=== PATIENT | male | born 1950 | race Caucasian/White ===

== ENCOUNTER 2019-11-08 13:55 | Emergency (ER) | payer MEDICARE, OTHER ==
--- NOTE | 2019-11-08 14:16 | ER ---
Nurse's Notes [facility] Name: Bryce Alegria Age: 69 yrs Sex: Male : 1950 Arrival Date: 11/08/2019 Time: 14:00 Bed 6 Private MD: Diagnosis: Bee allergy status Presentation: 11/07 14:07 Chief complaint: Patient states: Mowing grass and was stung multiple times by, reports ph bee stings to scalp,neck and bilateral ears, denies difficulty breathing. Coronavirus screen: Patient denies a cough. Patient denies shortness of breath or difficulty breathing. Patient denies measured and/or subjective temperature greater than 100.4F prior to today's visit. Patient denies travel on a cruise ship or to a country the [facility] currently lists as an affected area. Patient denies contact with known and/or suspected case of COVID-19. Ebola Screen: No symptoms or risks identified at this time. Onset: The symptoms/episode began/occurred acutely. Anaphylaxis evaluation, no signs or symptoms of anaphylaxis were noted. Initial Sepsis Screen: Does the patient meet any 2 criteria? No. Patient's initial sepsis screen is negative. Does the patient have a suspected source of infection? No. Patient's initial sepsis screen is negative. Risk Assessment: Do you want to hurt yourself or someone else? Patient reports no desire to harm self or others. Onset of symptoms was November 08, 2019. 14:07 Method Of Arrival: Ambulatory ph 14:07 Acuity: DOUGIE 4 ph Triage Assessment: 14:10 General: Appears in no apparent distress. comfortable, slender, well groomed, Behavior ph is calm, cooperative, appropriate for age. Neuro: Level of Consciousness is awake, alert, obeys commands, Oriented to person, place, time, situation. Respiratory: Airway is patent Respiratory effort is even, unlabored, Denies shortness of breath. 14:10 Pain: Complains of pain in scalp, L ear and back of neck. Derm: Skin is healthy with ph good turgor, Skin is pink, warm \T\ dry. Injury Description: Bite sustained to scalp, neck, and ears caused by a bee. Historical: - Allergies: 14:10 NKDA; ph - PMHx: 14:10 colon cancer; ph - PSHx: 14:10 complete colectomy, has illiostomy and a small amount of rectum left; ph - Immunization history:: Adult Immunizations unknown. - Social history:: Smoking status: Patient denies any tobacco usage or history of. Screenin:12 Abuse screen: Denies threats or abuse. Denies injuries from another. Nutritional ph screening: No deficits noted. Tuberculosis screening: No symptoms or risk factors identified. Fall Risk None identified. Assessment: 14:13 Reassessment: Patient appears in no apparent distress at this time. SEE TRIAGE NOTE. ph 14:45 Respiratory: Airway is patent Breath sounds are clear. ah Vital Signs: 14:07 BP 148 / 82; Pulse 68; Resp 18; Temp 97.8; Pulse Ox 99% on R/A; Weight 81.65 kg; Height ph 5 ft. 11 in. (180.34 cm); 14:46 BP 148 / 82; Pulse 61; Resp 18; Pulse Ox 100% ; ah 14:07 Body Mass Index 25.10 (81.65 kg, 180.34 cm) ph ED Course: 14:00 Patient arrived in ED. mr 14:02 Filomena Dennis, [facility] snw 14:03 Cristobal Jean MD is Attending Physician. snw 14:09 Triage completed. ph 14:10 Arm band placed on Patient placed in an exam room, on a stretcher. ph 14:12 Patient has correct armband on for positive identification. Bed in low position. Call ph light in reach. Side rails up X 1. Pulse ox on. NIBP on. Door closed. Noise minimized. 14:14 Starr Camejo, RN is Primary Nurse. 14:45 No provider procedures requiring assistance completed. Patient did not have IV access during this emergency room visit. Administered Medications: 14:20 Drug: Pepcid 20 mg Route: PO; ah 14:47 Follow up: Response: No adverse reaction 14:20 Drug: Benadryl 25 mg Route: PO; ah 14:47 Follow up: Response: No adverse reaction 14:20 Drug: Decadron 8 mg Route: PO; 14:46 Follow up: Response: No adverse reaction Outcome: 14:15 Discharge ordered by . snw 14:45 Discharged to home ambulatory. 14:45 Condition: good 14:45 Discharge instructions given to patient, Instructed on discharge instructions, Demonstrated understanding of instructions, follow-up care, medications, Prescriptions given X 2. 14:47 Patient left the ED. Signatures: Filomena Dennis, HUSSAIN-C COLLEGE ADMINISTRATOR-[place] Lexy pedroza Diane Monzon, RN RN Starr Camejo, RN RN
--- NOTE | 2019-11-08 14:16 | EDPHYS ---
Physician Documentation [facility] Name: Bryce Alegria Age: 69 yrs Sex: Male : 1950 Arrival Date: 11/08/2019 Time: 14:00 Bed 6 Private MD: ED Physician Cristobal Jean HPI: 11/07 14:25 This 69 yrs old Male presents to ER via Ambulatory with complaints of Bee snw Sting. 14:25 The patient was bitten on the scalp and left mastoid area, by a bee, pt was mowing with snw long sleeve shirt and jeans, at home, outdoors. Onset: The symptoms/episode began/occurred suddenly, just prior to arrival. Secondary to the bite the patient reports swelling. Associated signs and symptoms: Pertinent positives: erythema at site. Severity of symptoms: At their worst the symptoms were moderate. The patient has not experienced similar symptoms in the past. It is unknown whether or not the patient has recently seen a physician. no SOB, no nausea, no vomiting, no itching, no wheezing. Historical: - Allergies: 14:10 NKDA; ph - PMHx: 14:10 colon cancer; ph - PSHx: 14:10 complete colectomy, has illiostomy and a small amount of rectum left; ph - Immunization history:: Adult Immunizations unknown. - Social history:: Smoking status: Patient denies any tobacco usage or history of. ROS: 14:22 Constitutional: Negative for fever, chills, and weight loss, Eyes: Negative for injury, snw pain, redness, and discharge, ENT: Negative for injury, pain, and discharge, Neck: Negative for injury, pain, and swelling, Cardiovascular: Negative for chest pain, palpitations, and edema, Respiratory: Negative for shortness of breath, cough, wheezing, and pleuritic chest pain, Abdomen/GI: Negative for abdominal pain, nausea, vomiting, diarrhea, and constipation, Back: Negative for injury and pain, : Negative for injury, bleeding, discharge, and swelling, MS/Extremity: Negative for injury and deformity, Neuro: Negative for headache, weakness, numbness, tingling, and seizure, Psych: Negative for depression, anxiety, suicide ideation, homicidal ideation, and hallucinations. 14:22 Skin: Positive for multiple insect stings on head and neck. Exam: 14:20 Constitutional: This is a well developed, well nourished patient who is awake, alert, snw and in no acute distress. Eyes: Pupils equal round and reactive to light, extra-ocular motions intact. Lids and lashes normal. Conjunctiva and sclera are non-icteric and not injected. Cornea within normal limits. Periorbital areas with no swelling, redness, or edema. Neck: Trachea midline, no thyromegaly or masses palpated, and no cervical lymphadenopathy. Supple, full range of motion without nuchal rigidity, or vertebral point tenderness. No Meningismus. Chest/axilla: Normal chest wall appearance and motion. Nontender with no deformity. No lesions are appreciated. Cardiovascular: Regular rate and rhythm with a normal S1 and S2. No gallops, murmurs, or rubs. Normal PMI, no JVD. No pulse deficits. Respiratory: Lungs have equal breath sounds bilaterally, clear to auscultation and percussion. No rales, rhonchi or wheezes noted. No increased work of breathing, no retractions or nasal flaring. Abdomen/GI: Soft, non-tender, with normal bowel sounds. No distension or tympany. No guarding or rebound. No evidence of tenderness throughout. Colostomy Back: No spinal tenderness. No costovertebral tenderness. Full range of motion. MS/ Extremity: Pulses equal, no cyanosis. Neurovascular intact. Full, normal range of motion. Neuro: Awake and alert, GCS 15, oriented to person, place, time, and situation. Cranial nerves II-XII grossly intact. Motor strength 5/5 in all extremities. Sensory grossly intact. Cerebellar exam normal. Normal gait. Psych: Awake, alert, with orientation to person, place and time. Behavior, mood, and affect are within normal limits. 14:20 ENT: post auricular area on left with insect sting, probed to remove any retained stinger. 14:20 Neck: External neck: a few insect stings, probed to remove any retained stingers. 14:20 Skin: Appearance: normal except for affected area, injury, puncture(s), multiple insect stings throughout scalp, areas probed to remove any retained stingers. No edema. No dizziness, no LOC. Vital Signs: 14:07 BP 148 / 82; Pulse 68; Resp 18; Temp 97.8; Pulse Ox 99% on R/A; Weight 81.65 kg; Height ph 5 ft. 11 in. (180.34 cm); 14:46 BP 148 / 82; Pulse 61; Resp 18; Pulse Ox 100% ; ah 14:07 Body Mass Index 25.10 (81.65 kg, 180.34 cm) ph MDM: 14:03 Patient medically screened. snw 14:23 Data reviewed: vital signs, nurses notes. Data interpreted: Pulse oximetry: on room air snw is 99 %. Interpretation: normal. Counseling: I had a detailed discussion with the patient and/or guardian regarding: the historical points, exam findings, and any diagnostic results supporting the discharge/admit diagnosis, the presence of at least one elevated blood pressure reading (>120/80) during this emergency department visit, the need for outpatient follow up, to return to the emergency department if symptoms worsen or persist or if there are any questions or concerns that arise at home. Response to treatment: the patient's symptoms have mildly improved after treatment. Special discussion: I have referred the patient to see his PCP for further evaluation of high blood pressure. Based on the history and exam findings, there is no indication for further emergent testing or inpatient evaluation. I discussed with the patient/guardian the need to see the primary care provider for further evaluation of the symptoms. Administered Medications: 14:20 Drug: Pepcid 20 mg Route: PO; ah 14:47 Follow up: Response: No adverse reaction ah 14:20 Drug: Benadryl 25 mg Route: PO; 14:47 Follow up: Response: No adverse reaction 14:20 Drug: Decadron 8 mg Route: PO; 14:46 Follow up: Response: No adverse reaction Disposition: 15:40 Co-signature as Attending Physician, Cristobal Jean MD. rn Disposition: 11/08/19 14:15 Discharged to Home. Impression: Bee allergy status. - Condition is Stable. - Discharge Instructions: Allergies, Adult, Bee, Wasp, or Hornet Sting, Adult. - Prescriptions for Zyrtec 10 mg Oral Tablet - take 1 tablet by ORAL route once daily As needed; 20 tablet. Pepcid 20 mg Oral Tablet - take 1 tablet by ORAL route once daily; 20 tablet. - Medication Reconciliation Form, Thank You Letter, Antibiotic Education, Prescription Opioid Use form. - Follow up: Emergency Department; When: As needed; Reason: Trouble breathing, Worsening of condition. Follow up: Private Physician; When: 1 week; Reason: Recheck today's complaints, Continuance of care, Re-evaluation by your physician. - Notes: Stay Safe and thank your Daughter for us. Signatures: Filomena Dennis, CHIP FRIER-C CHIP FRIER-[place]nw Cristobal Jean MD MD rn Hall, Patricia, RN RN Starr Camejo RN RN Corrections: (The following items were deleted from the chart) 14:47 14:15 11/08/2019 14:15 Discharged to Home. Impression: Bee allergy status. Condition is ah Stable. Forms are Medication Reconciliation Form, Thank You Letter, Antibiotic Education, Prescription Opioid Use. Follow up: Emergency Department; When: As needed; Reason: Trouble breathing, Worsening of condition. Follow up: Private Physician; When: 1 week; Reason: Recheck today's complaints, Continuance of care, Re-evaluation by your physician. snw
[2019-11-08] MEDS ORDERED: FAMOTIDINE 20 MG TAB ONE (14:23)
[2019-11-08] MEDS ORDERED: DIPHENHYDRAMINE 25 MG TAB/CAP ONE (14:23)
[2019-11-08] MEDS ORDERED: dexAMETHasone 4 MG TAB ONE (14:23)
[2019-11-08 14:53] VITALS: BP 148/82; TEMP 97.8
[2019-11-08 14:54] VITALS: O2SAT 100
== END 2019-11-08 14:47 | disposition home or self-care (01) ==
LOC: ER 13:55
DX: T63.441A Toxic effect of venom of bees, accidental (unintentional), initial encounter (principal); Y93.89 Activity, other specified; Y92.007 Garden or yard of unspecified non-institutional (private) residence as the place of occurrence of the external cause; Z85.038 Personal history of other malignant neoplasm of large intestine
CPT/HCPCS: J8540

== ENCOUNTER 2022-07-19 06:18 | Observation (INO) | payer MEDICARE, OTHER ==
--- OUTSIDE RECORDS SUMMARY | 2022-07-19 06:22 | XMS REPORT | Continuity of Care Document ---
:1950 Author Organization [facility] t Address [address] [place] [address] Care Team Providers Name Role Phone [phone] Primary Care Physician Unavailable SYSTEM, PROVIDER NOT IN Attending Clinician Unavailable Regina Villar Attending Clinician REGINA VILLAR Attending Clinician Unavailable VISIT, NURSE UATS Attending Clinician Unavailable Problems Condition Condition Condition Status Onset Resolution Last Treating Co mments Source Name Details Category Date Date Treatment Clinician Date N20.0 - N20.0 - Diagnosis Active 2020-10-20 Memoria CALCULUS CALCULUS 2- 11:43:00 l OF KIDNEY OF KIDNEY 00:01: Herm gallito Active 00 09/01/2020 MH OPID [place] UNK UNK Diagnosis Active 2020-08-16 Mem oria Active 08-09 11:01:00 l 08/09/2020 00:00: Linus voss [facility] [address] [place] CYSTOSCOPY CYSTOSCOP Diagnosis Active 2020-08-18 Memoria URETEROSCO Y 08-09 08:56:00 l PY URETEROSCO 00:00: Linus n PY Active 00 08/09/2020 [facility] CYSTOSCOPY CYSTOSCOP Diagnosis Active 2019-072020-08-04 Memoria BLADDER Y BLADDER 2-04 05:29:00 l BIOPSY BIOPSY 00:00: [place] Active 00 06[facility]23/2020 [facility]OSS Diagnosis Active 2019-072020-06-20 Me moria HEMATURIA HEMATURIA 08-08 10:08:00 l Active 00:00: [place] 06/08/2020 00 [facility] [place] Blood in Blood in Problem Resolve 2020-11-23 Memoria urine urine d 00:55:15 l (finding) (finding) Herm gallito Resolved Problem 11/23/2020 [facility], Tiffany Cortes Kidney Kidney Problem Resolve 2020-11-23 Mem oria stone stone d 00:55:15 l (disorder) (disorder) He rmann Resolved Problem 11/23/2020 Medical Group,[facility] JOAN [place] Malignant Malignant Problem Resolve 2020-11-23 Memoria tumor of tumor of d 00:55:15 l colon colon [place] (disorder) (disorder) Resolved Problem 11/23/2020 Medical Group,[facility], Nallely T[place] Allergies, Adverse Reactions, Alerts This patient has no known allergies or adverse reactions. Social History Social Habit Start Date Stop Date Quantity Comments Source Social History 2020-08-18 2020-08-18 [facility] lilliamgallito 19:54:33 19:54:33 Medications Ordered Filled Start Stop Current Ordering Indication Dosage Frequency Signature Comments Components Source Medication Medication Date Date Medication? Clinician (SIG) Name Name potassium Yes 15 mEq = 1 Me moria citrate 15 5-03 tab, PO, l mEq oral 20:24: BID, # 60 Herm gallito tablet, 00 tab, 6 extended Refill(s), release [facility]acy: [id number], 180.34, cm, 11/20/20 14:41:00 CDT, Height, 79.545, kg, 11/20/20 14:41:00 CDT, Weight sildenafil Yes 100 mg = 1 M emoria 100 MG Oral 5-03 tab, PO, l Tablet 20:24: Daily, PRN Bette nn [Viagra] 00 for erectile dysfunctio n, Take 30 minutes prior to intercours e, # 10 tab, 3 Refill(s), Pharmacy: [facility] #[id number], 180.34, cm, 11/20/20 14:41:00 CDT, Height, 79.545, kg, 11/20/20 14:41:00 CDT, Weight Tamsulosin Yes 0.4 mg = 1 M emoria hydrochlori 5-03 cap, PO, l de 0.4 MG 20:24: Daily, # Herm gallito Oral 00 30 cap, 6 Capsule Refill(s), [Flomax] Pharmacy: [facility] #[id number], 180.34, cm, 11/20/20 14:41:00 CDT, Height, 79.545, kg, 11/20/20 14:41:00 CDT, Weight potassium 1-0 Yes 15 mEq = 1 Me moria citrate 15 4-14 tab, PO, l mEq oral 16:01: BID, # 60 Herm gallito tablet, 00 tab, 3 extended Refill(s), release Pharmacy: [id number], 180.34, cm, 10/30/20 10:01:00 CDT, Height, 79.545, kg, 10/30/20 10:01:00 CDT, Weight sildenafil 1-0 Yes 100 mg = 1 M emoria 100 MG Oral 4-14 tab, PO, l Tablet 16:01: Daily, PRN Bette nn [Viagra] 00 for erectile dysfunctio n, Take 30 minutes prior to intercours e, # 10 tab, 3 Refill(s), Pharmacy: [facility] #[id number], 180.34, cm, 10/30/20 10:01:00 CDT, Height, 79.545, kg, 10/30/20 10:01:00 CDT, Weight potassium 1-0 No 15 mEq = 1 Me moria citrate 15 4-12 tab, PO, l mEq oral 15:49: BID, # 60 Herm gallito tablet, 00 tab, 3 extended Refill(s), release Pharmacy: [facility] #[id number], 180.34, cm, 10/30/20 10:01:00 CDT, Height, 79.545, kg, 10/30/20 10:01:00 CDT, Weight sildenafil 1-0 No 100 mg = 1 M emoria 100 MG Oral 4-12 tab, PO, l Tablet 15:45: Daily, PRN Bette nn [Viagra] 00 for erectile dysfunctio n, Take 30 minutes prior to intercours e, # 10 tab, 3 Refill(s), Pharmacy: [facility] #[id number], 180.34, cm, 10/30/20 10:01:00 CDT, Height, 79.545, kg, 10/30/20 10:01:00 CDT, Weight Vitamin D3 Yes 0 Memoria 4-12 Refill(s) l 15:11: [place] Acetaminoph No Notes: Roman yves en 08-18 Infuse l 17:40: over 15 [place] minutes Do not exceed 4gm/day of acetaminop hen MEDICATION WASTE Product Size: 1000 mg Product Wasted: ___ mg Oxycodone No Notes: Memori a Hydrochlori 08-18 (Same as: l de 5 MG 17:40: Roxicodone Herm gallito Oral Tablet ) Fentanyl No Notes: Memoria 08-18 (Same as: l 17:40: Sublimaze) Preservati ve free. Hydromorpho No Notes: Roman yves ne 08-18 Same as: l 17:40: Dilaudid Flumazenil No Notes: Memor ia 08-18 (Same as: l 17:40: Romazicon) Naloxone No Notes: Memoria 08-18 Same as l 17:40: Narcan Ondansetron No Notes: Roman yves 08-18 (Same as: l 17:40: Zofran) MEDICATION WASTE Product Size: 4 mg Product Wasted: ___ mg 24 HR Yes 50 mg = 1 Memoria mirabegron 08-18 tab, PO, l 50 MG 17:10: Daily, For Linus n Extended 00 the first Release 5 days Tablet after [Myrbetriq] surgery take daily. After that, take daily as needed for urinary frequency and urgency, # 21 tab, 0 Refill(s), Pharmacy: [id number], 180.34, cm, 08/16/20 11:17:00 AGENCY SALES MANAGEMENT ASSISTANT, Height, 79.636, kg, 01... ondansetron No Route: IV, Memoria (ANES) 08-18 Drug form: l 17:06: INJ, ONCE, Stop date: 08/18/20 11:06:00 AGENCY SALES MANAGEMENT ASSISTANT dexamethaso No Route: IV, Memoria ne (ANES) 08-18 Drug form: l 17:06: INJ, ONCE, Stop date: 08/18/20 11:06:00 AGENCY SALES MANAGEMENT ASSISTANT fentaNYL No Route: IV, Mem oria (ANES) 08-18 Drug form: l 16:35: INJ, ONCE, Stop date: 08/18/20 10:35:00 AGENCY SALES MANAGEMENT ASSISTANT lidocaine No Route: IV, Me moria (ANES) 08-18 Drug form: l 16:35: INJ, ONCE, Stop date: 08/18/20 10:35:00 AGENCY SALES MANAGEMENT ASSISTANT propofol No Route: IV, Mem oria (ANES) 08-18 Drug form: l 16:35: INJ, ONCE, Stop date: 08/18/20 10:35:00 AGENCY SALES MANAGEMENT ASSISTANT Hyoscyamine No 0.125 mg = Memoria Sulfate 08-18 1 tab, SL, l 0.125 MG 15:57: Q4H, PRN Btete nn Sublingual 00 Bladder Tablet Spasm, # [Levsin] 30 tab, 1 Refill(s), Pharmacy: [facility] #[id number], 180.34, cm, 08/16/20 11:17:00 AGENCY SALES MANAGEMENT ASSISTANT, Height, 79.636, kg, 08/16/20 11:17:00 AGENCY SALES MANAGEMENT ASSISTANT, Weight Phenazopyri Yes 200 mg = 1 Memoria dine 08-18 tab, PO, l hydrochlori 15:57: TID, PRN He rmann de 200 MG 00 Dysuria, X Oral Tablet 4 day, # [Pyridium] 12 tab, 0 Refill(s), Pharmacy: [facility] #[id number], 180.34, cm, 08/16/20 11:17:00 AGENCY SALES MANAGEMENT ASSISTANT, Height, 79.636, kg, 08/16/20 11:17:00 AGENCY SALES MANAGEMENT ASSISTANT, Weight tramadol Yes 50 mg = 1 Roman yves hydrochlori 08-18 tab, PO, l de 50 MG 15:57: Q8H, PRN Bette nn Oral Tablet 00 Pain, X 5 day, # 15 tab, 0 Refill(s), Pharmacy: [facility] #[id number], 180.34, cm, 08/16/20 11:17:00 AGENCY SALES MANAGEMENT ASSISTANT, Height, 79.636, kg, 08/16/20 11:17:00 AGENCY SALES MANAGEMENT ASSISTANT, Weight Tamsulosin Yes 0.4 mg = 1 M emoria hydrochlori 29 cap, PO, l de 0.4 MG 15:57: Daily, # Herm gallito Oral 00 10 cap, 0 Capsule Refill(s), [Flomax] Pharmacy: [facility] #[id number], 180.34, cm, 08/16/20 11:17:00 AGENCY SALES MANAGEMENT ASSISTANT, Height, 79.636, kg, 08/16/20 11:17:00 AGENCY SALES MANAGEMENT ASSISTANT, Weight Lactated No Route: IV, Mem oria Ringers 08-18 Total l Injection 15:50: Volume: Bette nn IV (ANES) 00 1,000, 1000 mL Start date: 08/18/20 9:50:00 AGENCY SALES MANAGEMENT ASSISTANT, Stop date: 08/18/20 10:50:00 AGENCY SALES MANAGEMENT ASSISTANT ciprofloxac No Route: IV, Memoria in (ANES) 2 08-18 Drug form: l mg 15:45: INJ, Start date: 08/18/20 9:45:00 AGENCY SALES MANAGEMENT ASSISTANT, Stop date: 08/18/20 10:45:00 AGENCY SALES MANAGEMENT ASSISTANT Calcium No 1,000 mL, Memor ia Chloride 08-18 Rate: 75 l 0.0014 15:18: ml/hr, MEQ/ML / 00 Infuse Potassium over: 13.3 Chloride hr, Route: 0.004 IV, Dosing MEQ/ML / Weight Sodium 79.636 kg, Chloride Total 0.103 Volume: MEQ/ML / 1,000, Sodium Start Lactate date: 0.028 08/18/20 MEQ/ML 9:18:00 Injectable [employer] SALES MANAGEMENT ASSISTANT, Solution Duration: 30 day, Stop date: 09/17/20 9:17:00 AGENCY SALES MANAGEMENT ASSISTANT, 2.01, m2, 0 glycopyrron No 0.4 mg, Mem oria ium 08-04 Route: l 15:20: IVP, ONCE, Dosing Weight 78.75, kg, Start date: 08/04/20 9:20:00 AGENCY SALES MANAGEMENT ASSISTANT, Stop date: 08/04/20 9:20:00 AGENCY SALES MANAGEMENT ASSISTANT Levsin SL No Notes: Memori a 1-15 (Same as: l 15:15: Levsin) Take 30 min before meal glycopyrrol No Route: IV, Memoria ate (ANES) 15 Drug form: l 14:45: INJ, ONCE, Stop date: 08/04/20 8:45:00 AGENCY SALES MANAGEMENT ASSISTANT neostigmine No Route: IV, Memoria (ANES) 15 Drug form: l 14:45: INJ, ONCE, Stop date: 08/04/20 8:45:00 AGENCY SALES MANAGEMENT ASSISTANT Tamsulosin Yes 0.4 mg = 1 M emoria hydrochlori 1-15 cap, PO, l de 0.4 MG 14:43: Daily, # Herm gallito Oral 00 30 cap, 0 Capsule Refill(s), [Flomax] Pharmacy: [facility] #[id number], 180.34, cm, 08/02/20 11:09:00 AGENCY SALES MANAGEMENT ASSISTANT, Height, 80.455, kg, 08/02/20 11:09:00 AGENCY SALES MANAGEMENT ASSISTANT, Weight Phenazopyri No 200 mg = 1 Memoria dine 1-15 tab, PO, l hydrochlori 14:43: TID, PRN He rmann de 200 MG 00 Dysuria, X Oral Tablet 2 day, # 6 [Pyridium] tab, 0 Refill(s), Pharmacy: [facility] #[id number], 180.34, cm, 08/02/20 11:09:00 AGENCY SALES MANAGEMENT ASSISTANT, Height, 80.455, kg, 08/02/20 11:09:00 AGENCY SALES MANAGEMENT ASSISTANT, Weight Hyoscyamine Yes 0.125 mg = Memoria Sulfate 1-15 1 tab, SL, l 0.125 MG 14:43: Q6H, PRN Bette nn Sublingual 00 Bladder Tablet Spasm, # [Levsin] 20 tab, 0 Refill(s), Pharmacy: [facility] #[id number], 180.34, cm, 08/02/20 11:09:00 AGENCY SALES MANAGEMENT ASSISTANT, Height, 80.455, kg, 08/02/20 11:09:00 AGENCY SALES MANAGEMENT ASSISTANT, Weight ciprofloxac No Route: IV, Memoria in (ANES) 08-04 Drug form: l 14:37: INJ, ONCE, Stop date: 08/04/20 8:37:00 AGENCY SALES MANAGEMENT ASSISTANT midazolam No Route: IV, Me moria (ANES) 1-15 Drug form: l 14:32: SOLN, [place] 00 ONCE, Stop date: 08/04/20 8:32:00 AGENCY SALES MANAGEMENT ASSISTANT lidocaine No Route: IV, Me moria (ANES) 1 Drug form: l 14:32: INJ, ONCE, Stop date: 08/04/20 8:32:00 AGENCY SALES MANAGEMENT ASSISTANT fentaNYL No Route: IV, Mem oria (ANES) 1 Drug form: l 14:32: INJ, ONCE, Stop date: 08/04/20 8:32:00 AGENCY SALES MANAGEMENT ASSISTANT propofol No Route: IV, Mem oria (ANES) 115 Drug form: l 14:32: INJ, ONCE, Stop date: 08/04/20 8:32:00 AGENCY SALES MANAGEMENT ASSISTANT rocuronium No Route: IV, M emoria (ANES) 08-04 Drug form: l 14:32: INJ, ONCE, Stop date: 08/04/20 8:32:00 AGENCY SALES MANAGEMENT ASSISTANT ondansetron No Route: IV, Memoria (ANES) 115 Drug form: l 14:32: INJ, ONCE, Stop date: 08/04/20 8:32:00 AGENCY SALES MANAGEMENT ASSISTANT Lactated No Route: IV, Mem oria Ringers -15 Total l Injection 13:41: Volume: Bette nn IV (ANES) 00 1,000, 1000 mL Start date: 08/04/20 7:41:00 AGENCY SALES MANAGEMENT ASSISTANT, Stop date: 08/04/20 8:41:00 AGENCY SALES MANAGEMENT ASSISTANT Lactated 0 No 1,000 mL, Roman yves Ringers IV 15 Rate: 40 l 1,000 mL 12:11: ml/hr, [place] 00 Infuse over: 25 hr, Route: IV, Dosing Weight 80.455 kg, Total Volume: 1,000, Start date: 08/04/20 6:11:00 AGENCY SALES MANAGEMENT ASSISTANT, Duration: 30 day, Stop date: 09/03/20 6:10:00 AGENCY SALES MANAGEMENT ASSISTANT, 2.02, m2, 0 Vitamin D3 Yes = 1 tab, Mem oria 1-15 PO, Daily, l 12:10: 0 [place] 00 Refill(s) Vital Signs Vital Name Observation Time Observation Value Comments Source Height 2020-11-20 19:41:00 180.34 cm [facility] [place] Weight 2020-11-20 19:41:00 [facility] [place] BMI Calculated 2020-11-20 19:41:00 Memori al [place] Height 2020-10-30 15:01:00 180.34 cm [facility] [place] Weight 2020-10-30 15:01:00 [facility] [place] BMI Calculated 2020-10-30 15:01:00 Memori al [place] Height 2020-09-01 19:38:00 180.34 cm [facility] [place] Weight 2020-09-01 19:38:00 [facility] [place] BMI Calculated 2020-09-01 19:38:00 Memori al [place] Respitory Rate 2020-08-18 18:30:00 Memori al [place] Systolic (mm Hg) 2020-08-18 18:30:00 Roman rial [place] Diastolic (mm Hg) 2020-08-18 18:30:00 Mem orial [place] Diastolic (mm Hg) 2020-08-18 18:00:00 Mem orial [place] Respitory Rate 2020-08-18 18:00:00 Memori al [place] Systolic (mm Hg) 2020-08-18 18:00:00 Roman rial [place] Respitory Rate 2020-08-18 17:45:00 Memori al [place] Systolic (mm Hg) 2020-08-18 17:45:00 Roman rial [place] Diastolic (mm Hg) 2020-08-18 17:45:00 Mem orial [place] Height 2020-08-16 17:17:00 180.34 cm [facility] [place] Weight 2020-08-16 17:17:00 [facility] [place] BMI Calculated 2020-08-16 17:17:00 Memori al [place] Height 2020-08-11 16:16:00 180.34 cm [facility] [place] Weight 2020-08-11 16:16:00 [facility] [place] BMI Calculated 2020-08-11 16:16:00 Memori al [place] Systolic (mm Hg) 2020-08-04 16:15:00 Roman rial [place] Diastolic (mm Hg) 2020-08-04 16:15:00 Mem orial [place] Respitory Rate 2020-08-04 16:15:00 Memori al [place] Respitory Rate 2020-08-04 15:45:00 Memori al [place] Systolic (mm Hg) 2020-08-04 15:45:00 Roman rial [place] Diastolic (mm Hg) 2020-08-04 15:45:00 Mem orial [place] Respitory Rate 2020-08-04 15:30:00 Memori al [place] Systolic (mm Hg) 2020-08-04 15:30:00 Roman rial [place] Diastolic (mm Hg) 2020-08-04 15:30:00 Mem orial [place] Weight 2020-08-04 15:18:00 [facility] [place] BMI Calculated 2020-08-04 15:18:00 Memori al [place] Height 2020-08-02 17:09:00 180.34 cm [facility] [place] Height 2020-07-28 19:30:00 180.34 cm [facility] [place] Weight 2020-07-28 19:30:00 [facility] [place] BMI Calculated 2020-07-28 19:30:00 Memori al [place] Height 2020-06-23 20:32:00 180.34 cm [facility] [place] Weight 2020-06-23 20:32:00 [facility] [place] BMI Calculated 2020-06-23 20:32:00 Memori al [place] Height 2020-06-07 15:25:00 180.34 cm [facility] [place] Weight 2020-06-07 15:25:00 [facility] [place] BMI Calculated 2020-06-07 15:25:00 Memori al [place] Procedures Procedure Date / Time Performed Performing Clinician Sourc e Colectomy [facility] [place] Colostomy [facility] [place] Tonsillectomy [facility] [place] Cystoscopy [facility] [place] Encounters Start End Encounter Admission Attending Care Care Encounter Source Date/Time Date/Time Type Type Clinicians Facility Department ID 2020-01-21 Outpatient SYSTEM, [facility] [id number] 09:54:19 PROVIDER Escobar o n 2020-11-20 2020-11-21 Outpatient nullFlavo [facility] Multi [id number] Memoria 19:45:00 04:59:59 r Specialty 09 l [facility] Matthew conti [place] 2020-11-20 2020-11-20 Outpatient Elisa [facility] [id number] 14:45:00 23:59:59 Regina L 09 2020-11-20 2020-11-20 Outpatient MHIE IE [id number] Memoria 14:45:00 14:45:00 09 herman Reis 2020-10-30 2020-10-31 Outpatient nullFlavo [facility] Multi 55 [id number] Memoria 14:40:00 04:59:59 r Specialty 08 l [facility] Matthew conti [place] 2020-10-30 2020-10-30 Outpatient Elisa [facility] [id number] 09:40:00 23:59:59 Regina L 08 2020-10-30 2020-10-30 Outpatient [facility] STEVEN [id number] Memoria 09:40:00 09:40:00 08 herman Reis 2020-10-20 2020-10-21 Outpt Diag nullFlavo [facility] [id number] Memoria 16:33:00 04:59:00 Services r Outpatient 00 l [facility] 2020-10-20 2020-10-20 [facility] [id number] 11:33:00 23:59:00 Regina L 00 2020-09-01 2020-09-02 Outpatient nullFlavo [facility] [id number] Memoria 20:00:00 05:59:59 r Urology 07 l [facility] nn Time Share 2020-09-01 2020-09-02 Outpatient nullFlavo [facility] [id number] Memoria 20:00:00 05:59:59 r Urology 06 l [facility] Bette nn Time Share 2020-09-01 2020-09-01 Outpatient Elisa [facility] [id number] 14:00:00 23:59:59 Regina L 07 2020-09-01 2020-09-01 Outpatient Elisa, [facility] [id number] 14:00:00 23:59:59 Regina L 06 2020-09-01 2020-09-01 Outpatient MHIE MHIE [id number] Memoria 14:00:00 14:00:00 07 herman [place] 2020-09-01 2020-09-01 Outpatient MHIE MHIE [id number] Memoria 14:00:00 14:00:00 06 [facility] 2020-08-18 2020-08-18 Day nullFlavo [facility] [id number] Memoria 14:50:00 18:50:00 Surgery r [place] 02 [facility] 2020-08-18 2020-08-18 Outpatient Staller, MHPL MHPL [id number] 08:50:00 12:50:00 Regina L 2020-08-18 2020-08-18 Outpatient Staller, MHPL MHPL [id number] 08:50:00 12:50:00 Regina L 2020-08-18 2020-08-18 Outpatient STALLER, MHBL BOBBY [id number] MHBL 08:50:00 12:50:00 REGINA 2020-08-11 2020-08-11 Outpatient MHIE MHIE [id number] Memoria 11:00:00 11:00:00 05 [facility] 2020-08-04 2020-08-04 Day nullFlavo [facility] [id number] Memoria 11:23:00 16:20:00 Surgery r [place] [facility] 2020-08-04 2020-08-04 Outpatient Staller, MHPL MHPL [id number] 05:23:00 10:20:00 Regina L 2020-08-04 2020-08-04 Outpatient STALLER, MHBL BOBBY [id number] MHBL 05:23:00 10:20:00 REGINA 2020-07-26 2020-07-26 Ambulatory nullFlavo [facility] 55 [id number] Memoria 15:20:00 15:20:00 Pre-Reg r Specialty 03 l [facility] 2020-07-26 2020-07-26 Outpatient MHIE MHIE [id number] Memoria 09:20:00 09:20:00 03 [facility] 2020-07-26 2020-07-26 Outpatient Staller, [facility]MG [facility] [id number] 09:20:00 09:20:00 Regina L 03 2020-07-19 2020-07-20 Outpatient nullFlavo [facility] 55 [id number] Memoria 15:20:00 05:59:59 r Specialty 04 l [facility] 2020-07-19 2020-07-19 Outpatient Staller, MHMG MG [id number] 09:20:00 23:59:59 Regina L 04 2020-07-19 2020-07-19 Outpatient MHIE MHIE [id number] Memoria 09:20:00 09:20:00 04 [facility] 2020-06-23 2020-06-24 [place] [id number] Memoria 22:10:00 05:59:59 r Urology 01 l Cari Amos nn Time Share 2020-06-23 2020-06-24 [place] [id number] Memoria 22:00:00 05:59:59 r Urology 02 l Cari Castroa nn Time Share 2020-06-23 2020-06-23 Outpatient Staller, MG MG [id number] 16:10:00 23:59:59 Regina L 2020-06-23 2020-06-23 Outpatient VISIT, MH[facility] MG [id number] 16:00:00 23:59:59 NURSE UATS 2020-06-23 2020-06-23 Outpatient MHIE MHIE [id number] Memoria 16:10:00 16:10:00 01 [facility] 2020-06-23 2020-06-23 Outpatient MHIE MHIE [id number] Memoria 16:00:00 16:00:00 02 [facility] 2020-06-20 2020-06-21 Outpatient nullFlavo [facility] [id number] Memoria 16:02:00 05:59:00 r [place] 00 [facility] 2020-06-20 2020-06-20 Outpatient Staller, MHPL MHPL [id number] 10:02:00 23:59:00 Regina L 00 2020-06-20 2020-06-20 Outpatient STALLER, [facility] BOBBY [id number] MHBL 10:02:00 23:59:00 REGINA 2020-06-07 2020-06-08 Outpatient nullFlavo [facility] 55 [id number] Memoria 15:20:00 05:59:59 r Specialty 00 l [facility] 2020-06-07 2020-06-07 Outpatient Elisa [facility] [id number] 09:20:00 23:59:59 Regina L 00 2020-06-07 2020-06-07 Outpatient [facility] [id number] Memoria 09:20:00 09:20:00 00 l [place] Results Test Description Test Time Test Comments Results Result Comments Source IMMUNOLOGY 2020-08-16 17:17:00 Test Item Value Reference Range Interpretation Comme nts Coronavirus (COVID-19) AIDAN (test code = Not Detected *NA*(08/16/20 1 1:17 AM) Coronavirus (COVID-19) AIDAN) [id number] 17:07:00 Test Item Value Reference Range Interpretation Comments Coronavirus (COVID-19) Not Detected AIDAN (test code = *NA*(08/02/20 11:07 Coronavirus (COVID-19) AM) AIDAN) [facility] [id number] 16:04:00 Test Item Value Reference Range Interpretation Comments Creatinine Lvl (test code = Creatinine 1.40 0.50-1.40 Lvl) [facility] [id number] 16:04:00 Test Item Value Reference Range Interpretation Comments eGFR (test code = eGFR) 51 [facility] LAB [id number] 19:09:00 Test Item Value Reference Range Interpretation Comments Result 2 (Urine Culture) See Result Comment (test code = Result 2 (Urine Culture)) [facility]
[2022-07-19] MEDS ORDERED: ADENOSINE 6 MG/ 2ML VIAL IV ONE (06:41)
[2022-07-19 06:57] LABS: Absolute Lymphocytes (CBC) 1.3 K/uL (0.7-4.9); Hematocrit 49.4 % (39.6-49.0); MCV 92.6 fL (80-100); MPV 9.6 fL (7.6-11.3); RBC Red Blood Cell Count 5.34 M/uL (4.33-5.43)
[2022-07-19 07:09] LABS: Protime INR 1.05
[2022-07-19 07:23] LABS: Albumin 4.1 g/dL (3.4-5.0); Bilirubin Direct 0.2 mg/dL (0-0.2); Bilirubin Total 1.2 mg/dL (0.2-1.0); Protein, Total 7.7 g/dL (6.4-8.2)
[2022-07-19 07:29] LABS: Magnesium 2.1 mg/dL (1.6-2.4); Potassium 4.3 mmol/L (3.5-5.1)
[2022-07-19 07:31] LABS: Troponin High Sensitivity 267.9 pg/mL (<58.9)
[2022-07-19 07:34] LABS: Blood Morphology Comment NOT SEEN (NOT SEEN); Platelet Estimate ADEQ
--- NOTE | 2022-07-19 07:52 | RAD REPORT ---
EXAM DESCRIPTION: RAD - Chest Single View - 07/19/2022 6:50 am CLINICAL HISTORY: PALPITATIONS COMPARISON: Portable 09/05/2017 TECHNIQUE: AP portable chest image was obtained 07/19/2022 6:50 am . FINDINGS: No focal lung parenchymal process. Interstitial pattern is not outside of normal range. No measurable interstitial edema or infiltrate. Monitors or resuscitation paddles overlie the lower lef t chest. Heart and vasculature are normal. No measurable pleural effusion and no pneumothorax. No acu te bony abnormality seen. No acute aortic findings suspected. IMPRESSION: No acute cardiopulmonary process.
--- NOTE | 2022-07-19 08:01 | ER ---
Nurse's Notes [facility] Name: Bryce Alegria Age: 72 yrs Sex: Male : 1950 Arrival Date: 07/19/2022 Time: 06:25 Bed 7 Private MD: Salinas Jade E Diagnosis: Supraventricular tachycardia Presentation: 07/19 06:32 Chief complaint: Patient states: "My heart started feeling like it was fluttering, I tw5 got short of breath and a little dizzy. This has happened a couple of other times over the past several years, but the sensations usually goes away. This time it didn't go away.". Coronavirus screen: Vaccine status: Patient reports receiving the 2nd dose of the covid vaccine. [employer]. Ebola Screen: Patient negative for fever greater than or equal to 101.5 degrees Fahrenheit, and additional compatible Ebola Virus Disease symptoms Patient denies exposure to infectious person. Patient denies travel to an Ebola-affected area in the 21 days before illness onset. Risk Assessment: Do you want to hurt yourself or someone else? Patient reports no desire to harm self or others. Onset of symptoms was July 18, 2022 at 23:30. 06:32 Acuity: DOUGIE 2 tw5 06:32 Method Of Arrival: Wheelchair tw5 06:46 Initial Sepsis Screen: Does the patient meet any 2 criteria? HR > 90 bpm. Does the tw5 patient have a suspected source of infection? No. Patient's initial sepsis screen is negative. Triage Assessment: 06:46 General: Appears in no apparent distress. uncomfortable, Behavior is calm, cooperative. tw5 Pain: Denies pain. Historical: - Allergies: 06:36 NKDA; tw5 - PMHx: 06:36 colon cancer; tw5 - Immunization history:: Flu vaccine is up to date. - Social history:: Smoking status: Patient denies any tobacco usage or history of. Screenin:46 [facility] ED Fall Risk Assessment (Adult) History of falling in the last 3 months, tw5 including since admission No falls in past 3 months (0 pts). Abuse screen: Denies threats or abuse. Denies injuries from another. Nutritional screening: No deficits noted. Tuberculosis screening: No symptoms or risk factors identified. Assessment: 06:45 Reassessment: Patient states feeling better. Patient states symptoms have improved. tw5 Neuro: Level of Consciousness is awake, alert, obeys commands, Oriented to person, place, time, situation. 07:15 Reassessment: Patient appears in no apparent distress at this time. Patient and/or db family updated on plan of care and expected duration. Pain level reassessed. Patient is alert, oriented x 3, equal unlabored respirations, skin warm/dry/pink. Patient states feeling better. Patient states symptoms have improved. General: Appears in no apparent distress. comfortable, Behavior is calm, cooperative, appropriate for age, quiet. Pain: Denies pain. Neuro: No deficits noted. Level of Consciousness is awake, alert, obeys commands, Oriented to person, place, time, situation, Appropriate for age. Cardiovascular: Denies chest pain, Capillary refill < 3 seconds Rhythm is sinus rhythm. Respiratory: Airway is patent Respiratory effort is even, unlabored, Respiratory pattern is regular, symmetrical. Respiratory: Reports shortness of breath at rest last night. feels better now. GI: No deficits noted. No signs and/or symptoms were reported involving the gastrointestinal system. Abdomen is flat. : No deficits noted. No signs and/or symptoms were reported regarding the genitourinary system. 07:15 Reassessment: Patient appears in no apparent distress at this time. Patient and/or db family updated on plan of care and expected duration. Pain level reassessed. Patient is alert, oriented x 3, equal unlabored respirations, skin warm/dry/pink. Vital Signs: 06:32 Temp 97.7; Weight 81.65 kg; Height 5 ft. 11 in. (180.34 cm); Pain 0/10; tw5 06:41 BP 82 / 68; Pulse 176; Resp 25; Pulse Ox 94% on R/A; tw5 06:45 BP 91 / 66; Pulse 88; Resp 20; Pulse Ox 100% on R/A; tw5 07:15 BP 99 / 69; Pulse 72; Resp 18; Pulse Ox 100% on R/A; db 08:15 BP 102 / 73; Pulse 67; Resp 18; Pulse Ox 100% on R/A; db 06:32 Body Mass Index 25.10 (81.65 kg, 180.34 cm) tw5 ED Course: 06:25 Patient arrived in ED. es 06:25 Salinas Jade MD is Private Physician. es 06:35 Triage completed. tw5 06:42 Inserted saline lock: 18 gauge in right antecubital area, using aseptic technique. tw5 Blood collected. 06:45 Basic Metabolic Panel Sent. tw5 06:45 CBC with Diff Sent. tw5 06:45 LFT's Sent. tw5 06:45 Magnesium Sent. tw5 06:45 NT PRO-BNP Sent. tw5 06:45 PT-INR Sent. tw5 06:45 Troponin HS Sent. tw5 06:46 Arm band placed on Patient placed in an exam room. tw5 06:47 Amina Levine MD is Attending Physician. sp3 06:52 XRAY Chest (1 view) In Process Unspecified. EDMS 06:58 EKG done, by ED staff, reviewed by Amina Levine MD. tw5 06:58 Patient has correct armband on for positive identification. Placed in gown. Bed in low tw5 position. Call light in reach. Side rails up X2. Client placed on continuous cardiac and pulse oximetry monitoring. NIBP monitoring applied. Door closed. Noise minimized. Moved to private room. Warm blanket given. Verbal reassurance given. 06:59 Eliseo Oliver, RN is Primary Nurse. as6 07:37 Attending Physician role handed off by Amina Levine MD rn 07:37 Cristobal Jean MD is Attending Physician. rn 08:00 Alea Mendes MD is Hospitalizing Provider. rn 09:16 SARS RAPID Sent. bc6 09:16 COVID swab sent to lab. bc6 12:46 No provider procedures requiring assistance completed. Patient transferred, IV remains db in place. Administered Medications: 06:43 Drug: Adenosine 12 mg Route: IVP; Site: right antecubital; tw5 06:48 Follow up: Response: No adverse reaction; Cardiac rhythm changed tw5 08:43 Drug: Aspirin Chewable Tablet 324 mg Route: PO; db 09:40 Follow up: Response: No adverse reaction db Medication: 06:48 VIS not applicable for this client. tw5 Outcome: 08:01 Decision to Hospitalize by Provider. rn 12:57 Admitted to Tele on monitor, Report called to Almita db 12:57 Condition: stable 12:57 Instructed on the need for admit. 13:21 Patient left the ED. eb Signatures: Dispatcher [employer] Shauna Owens Roman, MD MD rn Melinda, Amina Salvador MD MD sp3 Darlene Toussaint 5 Eliseo Oliver RN RN as6 Daly Funes RN RN db Layla Dockery 6
--- NOTE | 2022-07-19 08:01 | EDPHYS ---
Physician Documentation [facility] Name: Bryce Alegria Age: 72 yrs Sex: Male : 1950 Arrival Date: 07/19/2022 Time: 06:25 Bed 7 Private MD: aSlinas Jade E ED Physician Cristobal Jean HPI: 07/19 06:47 This 72 yrs old Unknown Male presents to ER via Wheelchair with complaints of sp3 Palpitations. 06:47 72-year-old male with a history of colon cancer not currently on any chemotherapy, sp3 radiation or any medication at all presents to the ED for chief complaint palpitations since approximate 11:30 PM yesterday that started insidiously without any activity. He denies any chest pain, shortness of breath, back pain, headache, neck pain, jaw pain, left arm pain, any extremity pain at all, abdominal pain, nausea, vomiting, diarrhea, rash, syncope, near syncope or any other symptoms other than the palpitations. Remainder of ROS negative. Surgical history is significant for total colectomy.. Historical: - Allergies: 06:36 NKDA; tw5 - PMHx: 06:36 colon cancer; tw5 - Immunization history:: Flu vaccine is up to date. - Social history:: Smoking status: Patient denies any tobacco usage or history of. ROS: 06:48 Constitutional: Negative for fever, chills, and weight loss, Eyes: Negative for injury, sp3 pain, redness, and discharge, ENT: Negative for injury, pain, and discharge, Neck: Negative for injury, pain, and swelling, Respiratory: Negative for shortness of breath, cough, wheezing, and pleuritic chest pain, Abdomen/GI: Negative for abdominal pain, nausea, vomiting, diarrhea, and constipation, Back: Negative for injury and pain, MS/Extremity: Negative for injury and deformity, Skin: Negative for injury, rash, and discoloration, Neuro: Negative for headache, weakness, numbness, tingling, and seizure, Psych: Negative for depression, anxiety, suicide ideation, homicidal ideation, and hallucinations, Allergy/Immunology: Negative for hives, rash, and allergies. 06:48 All other systems are negative. Exam: 06:48 Constitutional: This is a well developed, well nourished patient who is awake, alert, sp3 and in no acute distress. Head/Face: Normocephalic, atraumatic. Eyes: Pupils equal round and reactive to light, extra-ocular motions intact. Lids and lashes normal. Conjunctiva and sclera are non-icteric and not injected. Cornea within normal limits. Periorbital areas with no swelling, redness, or edema. Neck: Trachea midline, no thyromegaly or masses palpated, and no cervical lymphadenopathy. Supple, full range of motion without nuchal rigidity, or vertebral point tenderness. No Meningismus. Chest/axilla: Normal chest wall appearance and motion. Nontender with no deformity. No lesions are appreciated. Respiratory: Lungs have equal breath sounds bilaterally, clear to auscultation and percussion. No rales, rhonchi or wheezes noted. No increased work of breathing, no retractions or nasal flaring. Abdomen/GI: Soft, non-tender, with normal bowel sounds. No distension or tympany. No guarding or rebound. No evidence of tenderness throughout. Back: No spinal tenderness. No costovertebral tenderness. Full range of motion. Skin: Warm, dry with normal turgor. Normal color with no rashes, no lesions, and no evidence of cellulitis. MS/ Extremity: Pulses equal, no cyanosis. Neurovascular intact. Full, normal range of motion. Neuro: Awake and alert, GCS 15, oriented to person, place, time, and situation. Cranial nerves II-XII grossly intact. Motor strength 5/5 in all extremities. Sensory grossly intact. Cerebellar exam normal. Normal gait. 06:48 ECG was reviewed by the Attending Physician. Initial EKG demonstrates supraventricular tachycardia at 172 bpm and regular fashion. Showed during adenosine administration demonstrates sinus pause followed by normal sinus rhythm with PVCs. Repeat EKG is pending. 06:51 Repeat EKG after adenosine demonstrates normal sinus rhythm at 80 bpm with normal sp3 intervals, normal QRS, normal axis, and nonspecific diffuse ST/T changes without evidence of acute ischemia. Vital Signs: 06:32 Temp 97.7; Weight 81.65 kg; Height 5 ft. 11 in. (180.34 cm); Pain 0/10; tw5 06:41 BP 82 / 68; Pulse 176; Resp 25; Pulse Ox 94% on R/A; tw5 06:45 BP 91 / 66; Pulse 88; Resp 20; Pulse Ox 100% on R/A; tw5 07:15 BP 99 / 69; Pulse 72; Resp 18; Pulse Ox 100% on R/A; db 08:15 BP 102 / 73; Pulse 67; Resp 18; Pulse Ox 100% on R/A; db 06:32 Body Mass Index 25.10 (81.65 kg, 180.34 cm) tw5 MDM: 06:49 Data reviewed: vital signs, nurses notes. ED course: 72-year-old male presents with sp3 palpitations and supraventricular tachycardia. Upon arrival, patient was placed in a room and on a director of cardiac rehabilitation and subsequently 12 mg of adenosine IV push were given which resulted in a appropriate sinus pause and commencement of normal sinus rhythm. Repeat EKG is pending. All laboratory values including chest x-ray are also pending. Patient will be signed out to the day physician for review of work-up and final disposition.. 06:50 Patient medically screened. sp3 07:59 Counseling: I had a detailed discussion with the patient and/or guardian regarding: the rn historical points, exam findings, and any diagnostic results supporting the discharge/admit diagnosis, lab results, radiology results, the need for further work-up and treatment in the hospital. Response to treatment: the patient's symptoms have markedly improved after treatment, and as a result, I will admit patient. ED course: Pt with new SVT, converted to sinus rhythm after adenosine, elevated troponin, will admit to hospitalist service.. 07/19 06:36 Order name: Basic Metabolic Panel; Complete Time: 07:59 sp3 07/19 06:36 Order name: CBC with Diff; Complete Time: 07:59 sp3 07/19 06:36 Order name: LFT's; Complete Time: 07:59 sp3 07/19 06:36 Order name: Magnesium; Complete Time: 07:59 sp3 07/19 06:36 Order name: NT PRO-BNP; Complete Time: 07:59 sp3 07/19 06:36 Order name: PT-INR; Complete Time: 07:59 sp3 07/19 06:36 Order name: Troponin HS; Complete Time: 07:59 sp3 07/19 07:01 Order name: Manual Differential; Complete Time: 07:59 EDMS 07/19 08:56 Order name: Troponin High Sensitivity EDMS 07/19 08:56 Order name: Troponin High Sensitivity [facility] 07/19 08:56 Order name: Troponin High Sensitivity [facility] 07/19 09:01 Order name: SARS RAPID eb 07/19 12:10 Order name: Urine Dipstick-Ancillary [facility] 07/19 12:25 Order name: Urinalysis [facility] 07/19 06:36 Order name: XRAY Chest (1 view); Complete Time: 07:59 sp3 07/19 06:36 Order name: EKG; Complete Time: 06:37 sp3 07/19 06:36 Order name: Cardiac monitoring; Complete Time: 06:45 sp3 07/19 06:36 Order name: EKG - Nurse/Tech; Complete Time: 06:45 sp3 07/19 06:36 Order name: IV Saline Lock; Complete Time: 06:45 sp3 07/19 06:36 Order name: Labs collected and sent; Complete Time: 06:45 sp3 07/19 06:36 Order name: O2 Per Protocol; Complete Time: 06:45 sp3 07/19 06:36 Order name: O2 Sat Monitoring; Complete Time: 06:45 sp3 Administered Medications: 06:43 Drug: Adenosine 12 mg Route: IVP; Site: right antecubital; tw5 06:48 Follow up: Response: No adverse reaction; Cardiac rhythm changed tw5 08:43 Drug: Aspirin Chewable Tablet 324 mg Route: PO; db 09:40 Follow up: Response: No adverse reaction db Disposition Summary: 07/19/22 08:01 Hospitalization Ordered Hospitalization Status: Observation rn Provider: Alea Mendes rn Condition: Stable rn Problem: new rn Symptoms: have improved rn Bed/Room Type: Standard rn Location: Telemetry/MedSurg (observation)(07/19/22 12:05) dw Room Assignment: [facility](07/19/22 12:05) dw Diagnosis - Supraventricular tachycardia rn Forms: - Medication Reconciliation Form rn - SBAR form rn Signatures: Dispatcher [employer] Mercy Hollins RN RN dw Nieto, Roman, MD MD rn Botello, Elizabeth eb Patel, Setul, MD MD sp3 Wood, Tiffany tw5 Daly Funes RN RN db Corrections: (The following items were deleted from the chart) 10:25 08:01 Telemetry/MedSurg (observation) rn eb 10:25 08:01 rn eb 12:05 10:25 [facility] ER HOLD eb dw 12:05 10:25 ERHOLD- eb dw
[2022-07-19] MEDS ORDERED: ASPIRIN 81 MG CHEWABLE TABLET ONE (08:40)
[2022-07-19 09:35] LABS: SARS-CoV-2 Antigen Rapid Res Negative (Negative)
[2022-07-19] MEDS ORDERED: ONDANSETRON 4 MG/2 ML VIAL IV PRN (09:38)
[2022-07-19] MEDS ORDERED: ACETAMINOPHEN 500 MG TAB PO PRN (09:38)
--- NOTE | 2022-07-19 09:56 | P.HP ---
Certification for Inpatient Patient admitted to: Observation With expected LOS: <2 Midnights <Hermes Ayala - Last Filed: 07/19/22 09:49> Patient History Date of Service: 07/19/22 Primary Care Provider: Kalie Reason for admission: Supraventricular tachycardia Home medications list reviewed: Yes - Past Medical/Surgical History Has patient received pneumonia vaccine in the past: No Diabetic: No -: colon cancer -: total colectomy with ileostomy placement -: tonsillectomy - Family History Father -: Heart disease, Lung disease Mother -: Heart disease - Social History Smoking Status: Never smoker Alcohol use: Yes CD- Drugs: No Caffeine use: Yes <Hermes Ayala - Last Filed: 07/19/22 09:49> Date of Service: 07/19/22 History of Present Illness: Patient is a 72-year-old gentleman who came to the hospital palpitations. He states he has his palpitations every now and then but they tend to go away. He drinks about 4 cups of coffee daily. His was at bedside with him states he drinks a whole mug of coffee. He says been doing this for quite a while. This morning when the palpitations were not going away he decided to come into the emergency room for further evaluation. In the ER he was found to be in SVT. Was given adenosine and converted to sinus rhythm. I have counseled him regarding caffeine use. Also instructed him on using medications and additional foods that can increase risk of SVT including MSG. He feels better at this time. We will check thyroid studies and echocardiogram and if these are unremarkable anticipate discharge home in the morning on low-dose beta-gerardo therapy. Cardiology has been consulted and will await their input as well. Home medications list reviewed: Yes - Past Medical/Surgical History Has patient received pneumonia vaccine in the past: No Diabetic: No - Family History Father -: Heart disease, Lung disease Mother -: Heart disease - Social History Smoking Status: Never smoker Alcohol use: Yes CD- Drugs: No Caffeine use: Yes <Alea Mendes - Last Filed: 07/19/22 13:45> Allergies No Known Allergies Allergy (Verified 11/21/14 14:01) Home Medications: Cholestyramine (with Sugar) [Cholestyramine Packet] 4 gm PO BID 09/05/17 Review of Systems 10-point ROS is otherwise unremarkable <Hermes Ayala - Last Filed: 07/19/22 09:49> 10-point ROS is otherwise unremarkable <Alea Mendes - Last Filed: 07/19/22 13:45> Physical Examination - Studies Laboratory Data (last 24 hrs) 07/19/22 06:40: PT 11.5, INR 1.05 07/19/22 06:40: WBC 7.30, Hgb 17.3, Hct 49.4 H, Plt Count 163 07/19/22 06:40: Sodium 138, Potassium 4.3, BUN 25 H, Creatinine 1.84 H, Glucose 139 H, Magnesium 2.1, Total Bilirubin 1.2 H, AST 24, ALT 25, Alkaline Phosphatase 51 <Hermes Ayala - Last Filed: 07/19/22 09:49> - Vital Signs Temperature: 98 F Blood Pressure: 120/80 Pulse: 140 Respirations: 18 Pulse Ox (%): 96 - Physical Exam General: Alert, In no apparent distress, Oriented x3 HEENT: Atraumatic, PERRLA, Mucous membr. moist/pink, EOMI, Sclerae nonicteric Neck: Supple, 2+ carotid pulse no bruit, No LAD, Without JVD or thyroid abnormality Respiratory: Clear to auscultation bilaterally, Normal air movement Cardiovascular: Regular rate/rhythm, Normal S1 S2, No murmurs Gastrointestinal: Normal bowel sounds, Soft and benign, Non-distended, No tenderness Musculoskeletal: No clubbing, No swelling, No tenderness Integumentary: No rashes Neurological: Normal gait, Normal speech, Normal strength at 5/5 x4 extr, Normal tone, Sensation intact, Cranial nerves 3-12 intact, Normal affect Lymphatics: No axilla or inguinal lymphadenopathy - Studies Laboratory Data (last 24 hrs) 07/19/22 06:40: PT 11.5, INR 1.05 07/19/22 06:40: WBC 7.30, Hgb 17.3, Hct 49.4 H, Plt Count 163 07/19/22 06:40: Sodium 138, Potassium 4.3, BUN 25 H, Creatinine 1.84 H, Glucose 139 H, Magnesium 2.1, Total Bilirubin 1.2 H, AST 24, ALT 25, Alkaline Phosphatase 51 <Alea Mendes - Last Filed: 07/19/22 13:45> Assessment and Plan - Advance Directives Does patient have a Living Will: Yes Does patient have a Durable POA for Healthcare: Yes <Hermes Ayala - Last Filed: 07/19/22 09:49> - Problems (Diagnosis) (1) SVT (supraventricular tachycardia) Current Visit: Yes Status: Acute (2) History of colon cancer Current Visit: No Status: Chronic (3) Hypertension Onset Date: 09/05/17 Current Visit: No Status: Chronic Qualifiers: Hypertension type: essential hypertension Qualified Code(s): I10 - Essential (primary) hypertension (4) Status post total colectomy Current Visit: No Status: Chronic - Plan Plan: 1. Continue with low-dose beta-gerardo therapy 2. Thyroid studies 3. Echocardiogram 4. Instructed use on decreasing caffeine usage and dietary changes 5. Anticipate discharge home over the next 24hrs if patient is clinically doing well. Discharge Plan: Home Plan to discharge in: 24 Hours - Code Status/Comfort Care Code Status Assessed: Yes Code Status: Full Code Critical Care: No Time Spent Managing Pts Care (In Minutes): 45 <Alea Mendes - Last Filed: 07/19/22 13:45>
[2022-07-19] MEDS: ENOXAPARIN 40 MG/0.4 ML SQ SCH (10:00)
[2022-07-19 11:27] VITALS: BMI 25.1
[2022-07-19 12:09] LABS: Urine Blood Negative (Negative); Urine Glucose Negative (Negative); Urine Protein Trace (Negative); Urine Specific Gravity 1.025 (1.005-1.030)
[2022-07-19 12:25] LABS: Urine Bacteria None Seen /HPF (<20); Urine Bilirubin NEGATIVE (Negative); Urine Blood Negative (Negative); Urine Clarity Clear (Clear); Urine Color Light-Yellow (Yellow); Urine Glucose NEGATIVE (Negative); Urine Mucus Slight /HPF (None Seen); Urine Protein TRACE (Negative); Urine RBC <5 /HPF (None Seen); Urine Urobilinogen Normal (Normal)
--- NOTE | 2022-07-19 15:24 | CON ---
Date of Consultation: 07/19/2022 Reason For Consultation: Palpitations. History Of Present Illness: A 72-year-old male presented to the hospital with palpitations, sudden. He used to have it, lasts for few minutes and goes away, but this time it sustained till he came to the emergency room. He was found to be in supraventricular tachycardia. Was given adenosine, conver cory to sinus rhythm and has been doing well since. Denies having any chest pain or shortness of rachel th. Past Medical History: None. Medications: None. Allergies: NO KNOWN DRUG ALLERGIES. Family History: No premature coronary artery disease or cancer. Social History: Does not smoke or drink. Does not use any drugs. Review of Systems: All systems reviewed and they were negative except as mentioned in the HPI. Physical Examination: Vital Signs: Reviewed. Head and Neck: Pupils are equal, reactive to light. Intact eye movements. No JVD. No cervical lym phadenopathy. Neck is supple. Thyroid is not enlarged. Lungs: Clear to auscultation bilaterally. No rhonchi, wheezing, or crackles. No accessory muscle u se. Heart: Regular rate and rhythm. No extra sounds. Abdomen: Soft, nontender. Bowel sounds positive. No organomegaly. No masses or hernia. No rigidi ty or rebound. Extremities: No edema, clubbing, or cyanosis. Intact pulses. Skin: No rash. Neurologic: Alert, awake, oriented x3. No acute focal deficits appreciated. Investigations: Troponin 267. BUN 25, creatinine 1.84, hemoglobin 17.3. Assessment And Recommendation: 1.Supraventricular tachycardia. I agree with metoprolol, change it to Toprol-XL once daily. 2.Elevated troponin. This is likely demand as the heart rate was very high, however, trend 2 more s ets of cardiac enzymes. Continue aspirin. Patient does not have any chest pain. If there is substa ntial increase of his troponin, then we will plan for ischemia workup. 3.Dyslipidemia. Continue statin. SR/MODL Voice ID: [id number] Report ID: [id number]
[2022-07-19] MEDS: METOPROLOL TAR 25 MG TAB PO SCH (18:02)
[2022-07-19] MEDS ORDERED: ATORVASTATIN 40 MG TAB PO SCH (21:00)
[2022-07-20 00:34] VITALS: O2SAT 98
[2022-07-20 05:17] LABS: Absolute Lymphocytes (CBC) 1.2 K/uL (0.7-4.9); Hematocrit 40.6 % (39.6-49.0); Lymphocytes % 27.3 % (15.3-44.8); MCV 91.5 fL (80-100); MPV 9.6 fL (7.6-11.3); RBC Red Blood Cell Count 4.44 M/uL (4.33-5.43)
[2022-07-20 05:38] LABS: Magnesium 2.2 mg/dL (1.6-2.4); Phosphorus 2.4 mg/dL (2.5-4.9)
[2022-07-20] MEDS: METOPROLOL TAR 25 MG TAB PO SCH (05:43)
[2022-07-20] MEDS ORDERED: PANTOPRAZOLE 40MG TABLET PO SCH (07:30)
[2022-07-20] MEDS: ENOXAPARIN 40 MG/0.4 ML SQ SCH (08:11)
[2022-07-20] MEDS: POTASS/SODIUM PHOSPHATE 1 PKT POWD.PACK PO SCH ×2 (08:12→09:45)
[2022-07-20 08:25] VITALS: TEMP 97.7
[2022-07-20] MEDS ORDERED: ASPIRIN EC 81 MG TAB PO SCH (09:00)
[2022-07-20 11:59] VITALS: BP 121/75
--- NOTE | 2022-07-20 13:19 | P.DS ---
Admission Date: 07/19/22 Discharge Date: 07/20/22 Primary Care Provider: Jade Disposition: ROUTINE DISCHARGE Discharge Condition: GOOD Reason for Admission: Supraventricular tachycardia Brief History of Present Illness: SVT Hospital Course: Age 72 AW sudden onset of SVT prev episode was 4 yrs ago. labs unremarkable . Thyroid function test prior to discharge, Pt troponins elevated S/B Dr. Odom will follow up as outpatient. Converted to SR on B blockers. At discharge vitals stable, No chest pain or SOB. Chest clear. CVS HS normal/ Mild renal fialure improved Vital Signs/Physical Exam: Temp Pulse Resp BP Pulse Ox 97.7 F 55 14 121/75 99 07/20/22 11:58 07/20/22 11:58 07/20/22 11:58 07/20/22 11:58 07/20/22 11:58 Laboratory Data at Discharge: WBC 4.30 K/uL (4.3-10.9) 07/20/22 04:37 Hgb 14.5 g/dL (13.6-17.9) D 07/20/22 04:37 Hct 40.6 % (39.6-49.0) 07/20/22 04:37 Plt Count 110 K/uL (152-406) L D 07/20/22 04:37 PT 11.5 SECONDS (9.5-12.5) 07/19/22 06:40 INR 1.05 07/19/22 06:40 Sodium 142 mmol/L (136-145) 07/20/22 04:37 Potassium 4.0 mmol/L (3.5-5.1) 07/20/22 04:37 BUN 23 mg/dL (7-18) H 07/20/22 04:37 Creatinine 1.28 mg/dL (0.70-1.30) 07/20/22 04:37 Glucose 105 mg/dL (74-106) 07/20/22 04:37 Phosphorus 2.4 mg/dL (2.5-4.9) L 07/20/22 04:37 Magnesium 2.2 mg/dL (1.6-2.4) 07/20/22 04:37 Total Bilirubin 1.2 mg/dL (0.2-1.0) H 07/19/22 06:40 AST 24 U/L (15-37) 07/19/22 06:40 ALT 25 U/L (16-61) 07/19/22 06:40 Alkaline Phosphatase 51 U/L (45-117) 07/19/22 06:40 Triglycerides 77 mg/dL (<150) 07/19/22 14:23 Cholesterol 163 mg/dL (<200) 07/19/22 14:23 HDL Cholesterol 58 mg/dL (40-60) 07/19/22 14:23 Cholesterol/HDL Ratio 2.81 07/19/22 14:23 Home Medications: Metoprolol Tartrate [Lopressor*] 25 mg PO BID 6AM 6PM 30 Days #60 tab 07/20/22 New Medications: Metoprolol Tartrate [Lopressor*] 25 mg PO BID 6AM 6PM 30 Days #60 tab Physician Discharge Instructions: TSH an dT4 before discharge Diet: Regular Followup: Salinas Jade MD [Primary Care Provider] - Ronaldo Odom MD [ACTIVE - CAN ADMIT] -
[2022-07-20 15:11] LABS: Thyroid Stimulating Hormone 0.534 uIU/mL (0.358-3.740)
--- NOTE | 2022-07-20 20:21 | PN ---
Date of Progress Note: 07/20/2022 Subjective: Seen at bedside, doing well. No further episodes. No chest pain. No shortness of rachel th. Troponin peaked at 1100 and down to 900. The patient wants to go home. Denies having any chest pain or shortness of breath. Review of Systems: No chest pain, shortness of breath, orthopnea, cough. No nausea, vomiting, diarrhea. All other syst ems reviewed are negative. Physical Examination: Vital signs: Reviewed. Head and Neck: Pupils are equal, reactive to light. Intact eye movements. No JVD. No cervical lymp hadenopathy. Neck is supple. Thyroid is not enlarged. Lungs: Clear to auscultation bilaterally. No rhonchi, rales, or crackles. No accessory muscle use. Heart: Regular rate and rhythm. No extra sounds. Abdomen: Soft, nontender. Bowel sounds positive. No organomegaly. No masses or hernia. No rigidi ty or rebound. Extremities: No edema, clubbing, or cyanosis. Intact pulses. Skin: No rash. Neuro: Alert, awake, oriented x3. No acute focal deficits associated. Lymph nodes: No cervical adenopathy. Investigations: Labs were reviewed. Assessment/recommendation: 1.SVT controlled on beta-gerardo. The patient wants to go home. From Cardiology standpoint, he can be released and followed up as an outpatient for exercise nuclear stress test. 2.Elevated troponin, likely demand. We will obtain a stress test to further evaluate, which can be done as an outpatient. /MARLENYL Voice ID: [id number] Report ID: [id number]
--- NOTE | 2022-07-21 19:09 | EKG ---
Test Date: 2022-07-19 Test Time: 06:35:34 Regulatory Compliance Specialist: MEASUREMENT RESULTS: Intervals: Rate: 172 NM: QRSD: 88 QT: 268 QTc: 453 [place]: P: NM: QRS: 1 T: 4 INTERPRETIVE STATEMENTS: Supraventricular tachycardia Marked ST abnormality, possible inferior subendocardial injury Abnormal ECG Compared to ECG 09/04/2017 17:51:41 Sinus rhythm no longer present ST (T wave) deviation still present Electronically Signed On 07-21-22 19:08:23 INTERN RETAIL by Ronaldo Odom
--- NOTE | 2022-07-23 08:14 | ECHO ---
HEIGHT: 5 ft 11 in WEIGHT: 180 lb 0 oz DATE OF STUDY: 07/19/[address]: Alea Mendes MD 2-DIMENSIONAL: YES M.MODE: YES DOPPLER: YES COLOR FLOW: YES TDS: NO PORTABLE: YES DEFINITY: NO BUBBLE STUDY: NO DIAGNOSIS: SUPRA VENTRICULAR TACHYCARDIA CARDIAC HISTORY: CATHERIZATION: NO SURGERY: NO PROSTHETIC VALVE: NO PACEMAKER: NO MEASUREMENTS (cm) DIASTOLIC (NORMALS) SYSTOLIC (NORMALS) IVSd 1.1 (0.6-1.2) LA Diam 2.5 (1.9-4.0) LVEF 55% LVIDd 4.5 (3.5-5.7) LVIDs 2.9 (2.0-3.5) %FS 35% LVPWd 1.1 (0.6-1.2) Ao Diam 3.1 (2.0-3.7) 2 DIMENSIONAL ASSESSMENT: RIGHT ATRIUM: NORMAL LEFT ATRIUM: NORMAL RIGHT VENTRICLE: NORMAL LEFT VENTRICLE: NORMAL TRICUSPID VALVE: NORMAL MITRAL VALVE: NORMAL PULMONIC VALVE: MILD PULMONIC INSUFFICIENCY AORTIC VALVE: NORMAL PERICARDIAL EFFUSION: NONE AORTIC ROOT: NORMAL LEFT VENTRICULAR WALL MOTION: NORMAL. DOPPLER/COLOR FLOW: SEE BELOW. COMMENTS: 1. NORMAL LEFT VENTRICULAR EJECTION FRACTION 55-60%. 2. NORMAL WALL MOTION 3. MILD PULMONIC INSUFFICIENCY TECHNOLOGIST: ROSE MARIE CISNEROS
== END 2022-07-20 14:35 | disposition home or self-care (01) ==
LOC: ER 06:18 → ERHOLD 08:52 → 2ND 12:50
PROVIDERS: ADMIT Hospitalist; ATTEND Internal Medicine Sleep Medicine
DX: I47.1 Supraventricular tachycardia (principal); R77.8 Other specified abnormalities of plasma proteins; E78.5 Hyperlipidemia, unspecified; I10 Essential (primary) hypertension; Z82.49 Family history of ischemic heart disease and other diseases of the circulatory system; Z90.49 Acquired absence of other specified parts of digestive tract; Z20.822 Contact with and (suspected) exposure to COVID-19
CPT/HCPCS: 93005; 93306; 85025 ×2; 81001; 80048 ×2; 36415; 83735 ×2; 84100; 85610; 80061; 80076; 84443; 81003; 84484 ×3; 84439; 83880; 71045; 96374; 99285; 87811; J0153; J1650

== ENCOUNTER 2023-03-10 02:26 | Emergency (ER) | payer OTHER ==
--- OUTSIDE RECORDS SUMMARY | 2023-03-10 02:31 | XMS REPORT | Continuity of Care Document ---
:1950 Author Organization [facility] t Address [address] [place] [address] Care Team Providers Name Role Phone [phone] Primary Care Physician Unavailable SYSTEM, PROVIDER NOT [...] Herm gallito Active 00 09/01/2020 [facility] [place] UNK UNK Diagnosis Active 2020-08-16 Mem oria Active 08-09 11:01:00 l 08/09/2020 00:00: Linus n [facility] 00 [place] CYSTOSCOPY CYSTOSCOP Diagnosis Active 2020-08-18 Memoria URETEROSCO Y 08-09 08:56:00 l PY URETEROSCO 00:00: Linus n PY [facility] 00 [facility]09[facility] Diagnosis Active 2019-072020-08-04 Memoria BLADDER Y BLADDER 2-04 05:29:00 l BIOPSY BIOPSY 00:00: [place] Active 00 06/23/2020 [facility] GR[facility] GROSS Diagnosis Active 2019-072020-06-20 Me moria HEMATURIA HEMATURIA 08-08 10:08:00 l Active 00:00: [place] 06/08/2020 00 [facility] [place] Blood in Blood in Problem Resolve 2020-11-23 Memoria urine urine d 00:55:15 l (finding) (finding) Herm gallito Resolved Problem 11/23/2020 [facility] Kidney Kidney Problem Resolve 2020-11-23 Mem oria stone stone d 00:55:15 l (disorder) (disorder) He rmann Resolved Problem 11/23/2020 [facility] JOAN [place] Malignant Malignant Problem Resolve 2020-11-23 Memoria tumor of tumor of d 00:55:15 l colon colon [place] (disorder) (disorder) Resolved Problem 11/23/2020 [facility] JO[facility] [place] Allergies, Adverse Reactions, Alerts Allergy Allergy Status Severity Reaction(s) Onset Inactive Treating Comm ents Source Name Type Date Date Clinician No Known No Known Active Memori a Medicati Medicati l on on [place] Allergayden Allergayden s s Social History Social Habit Start Date Stop Date Quantity Comments Source Social History 2020-08-18 2020-08-18 [facility] eduardo 19:54:33 19:54:33 Medications Ordered Filled Start Stop Current Ordering Indication Dosage Frequency Signature Comments Components Source Medication Medication Date Date Medication? Clinician (SIG) Name Name potassium Yes 15 mEq = 1 Me moria citrate 15 5-03 tab, PO, l mEq oral 20:24: BID, # 60 Herm gallito tablet, 00 tab, 6 extended Refill(s), release Pharmacy: [id number], 180.34, cm, 11/20/20 14:41:00 CDT, Height, 79.545, kg, 11/20/20 14:41:00 CDT, Weight sildenafil Yes 100 mg = 1 M emoria 100 MG Oral 5-03 tab, PO, l Tablet 20:24: Daily, PRN Bette nn [Viagra] 00 for erectile dysfunctio n, Take 30 minutes prior to intercours e, # 10 tab, 3 Refill(s), Pharmacy: [id number], 180.34, cm, 11/20/20 14:41:00 CDT, Height, 79.545, kg, 11/20/20 14:41:00 CDT, Weight Tamsulosin 2020-0 Yes 0.4 mg = 1 M emoria hydrochlori 5-03 cap, PO, l de 0.4 MG 20:24: Daily, # Herm gallito Oral 00 30 cap, 6 Capsule Refill(s), [Flomax] Pharmacy: [facility] #[id number], 180.34, cm, 11/20/20 14:41:00 CDT, Height, 79.545, kg, 11/20/20 14:41:00 CDT, Weight potassium 0 Yes 15 mEq = 1 Me moria citrate 15 5-03 tab, PO, l mEq oral 20:24: BID, # 60 Herm gallito tablet, 00 tab, 6 extended Refill(s), release Pharmacy: [facility] #[id number], 180.34, cm, 11/20/20 14:41:00 CDT, Height, 79.545, kg, 11/20/20 14:41:00 CDT, Weight sildenafil 0 Yes 100 mg = 1 M emoria 100 MG Oral 5-03 tab, PO, l Tablet 20:24: Daily, PRN Bette nn [Viagra] 00 for erectile dysfunctio n, Take 30 minutes prior to intercours e, # 10 tab, 3 Refill(s), Pharmacy: [facility] #[id number], 180.34, cm, 11/20/20 14:41:00 CDT, Height, 79.545, kg, 11/20/20 14:41:00 CDT, Weight Tamsulosin 2020-0 Yes 0.4 mg = 1 M emoria hydrochlori 5-03 cap, PO, l de 0.4 MG 20:24: Daily, # Herm gallito Oral 00 30 cap, 6 Capsule Refill(s), [Flomax] Pharmacy: [facility] #[id number], 180.34, cm, 11/20/20 14:41:00 CDT, Height, 79.545, kg, 11/20/20 14:41:00 CDT, Weight potassium 2020-0 Yes 15 mEq = 1 Me moria citrate 15 5-03 tab, PO, l mEq oral 20:24: BID, # 60 Herm gallito tablet, 00 tab, 6 extended Refill(s), release Pharmacy: [facility] #[id number], 180.34, cm, 11/20/20 14:41:00 CDT, Height, 79.545, kg, 11/20/20 14:41:00 CDT, Weight sildenafil 2020-0 Yes 100 mg = 1 M emoria 100 MG Oral 5-03 tab, PO, l Tablet 20:24: Daily, PRN Bette nn [Viagra] 00 for erectile dysfunctio n, Take 30 minutes prior to intercours e, # 10 tab, 3 Refill(s), Pharmacy: [facility] #[id number], 180.34, cm, 11/20/20 14:41:00 CDT, Height, 79.545, kg, 11/20/20 14:41:00 CDT, Weight Tamsulosin 2020-0 Yes 0.4 mg = 1 M emoria hydrochlori 5-03 cap, PO, l de 0.4 MG 20:24: Daily, # Herm gallito Oral 00 30 cap, 6 Capsule Refill(s), [Flomax] Pharmacy: [facility] #[id number], 180.34, cm, 11/20/20 14:41:00 CDT, Height, 79.545, kg, 11/20/20 14:41:00 CDT, Weight potassium 2020-0 Yes 15 mEq = 1 Me moria citrate 15 4-14 tab, PO, l mEq oral 16:01: BID, # 60 Herm gallito tablet, 00 tab, 3 extended Refill(s), release Pharmacy: [facility] #[id number], 180.34, cm, 10/30/20 10:01:00 CDT, Height, 79.545, kg, 10/30/20 10:01:00 CDT, Weight sildenafil 2020-0 Yes 100 mg = 1 M emoria 100 MG Oral 4-14 tab, PO, l Tablet 16:01: Daily, PRN Bette nn [Viagra] 00 for erectile dysfunctio n, Take 30 minutes prior to intercours e, # 10 tab, 3 Refill(s), Pharmacy: [facility] #[id number], 180.34, cm, 10/30/20 10:01:00 CDT, Height, 79.545, kg, 10/30/20 10:01:00 CDT, Weight potassium 2021-0 Yes 15 mEq = 1 Me moria citrate 15 4-14 tab, PO, l mEq oral 16:01: BID, # 60 Herm gallito tablet, 00 tab, 3 extended Refill(s), [id number], cm, 10/30/20 10:01:00 CDT, Height, 79.545, kg, 10/30/20 10:01:00 CDT, Weight sildenafil 1-0 Yes 100 mg = 1 M emoria 100 MG Oral 4-14 tab, PO, l Tablet 16:01: Daily, PRN Bette nn [Viagra] 00 for erectile dysfunctio n, Take 30 minutes prior to intercours e, # 10 tab, 3 Refill(s), Pharmacy: [facility] #[id number], 180.34, cm, 10/30/20 10:01:00 CDT, Height, 79.545, kg, 10/30/20 10:01:00 CDT, Weight potassium 1-0 Yes 15 mEq = 1 Me moria citrate 15 4-14 tab, PO, l mEq oral 16:01: BID, # 60 Herm gallito tablet, 00 tab, 3 extended Refill(s), release Pharmacy: [facility] #[id number], 180.34, cm, 10/30/20 10:01:00 CDT, Height, 79.545, kg, 10/30/20 10:01:00 CDT, Weight sildenafil 1-0 Yes 100 mg = 1 M emoria 100 MG Oral 4-14 tab, PO, l Tablet 16:01: Daily, PRN Bette nn [Viagra] 00 for erectile dysfunctio n, Take 30 minutes prior to intercours e, # 10 tab, 3 Refill(s), Pharmacy: [facility] #[id number], 180.34, cm, 10/30/20 10:01:00 CDT, Height, 79.545, kg, 10/30/20 10:01:00 CDT, Weight potassium 2021-0 No 15 mEq = 1 Me moria citrate 15 4-12 tab, PO, l mEq oral 15:49: BID, # 60 Herm gallito tablet, 00 tab, 3 extended Refill(s), release Pharmacy: [id number], 180.34, cm, 10/30/20 10:01:00 CDT, Height, 79.545, kg, 10/30/20 10:01:00 CDT, Weight potassium 1-0 No 15 mEq = 1 Me moria citrate 15 4-12 tab, PO, l mEq oral 15:49: BID, # 60 Herm gallito tablet, 00 tab, 3 extended Refill(s), release Pharmacy: [id number], 180.34, cm, 10/30/20 10:01:00 CDT, Height, 79.545, kg, 10/30/20 10:01:00 CDT, Weight potassium 1-0 No 15 mEq = 1 Me moria citrate 15 4-12 tab, PO, l mEq oral 15:49: BID, # 60 Herm gallito tablet, 00 tab, 3 extended Refill(s), release Pharmacy: [facility] #[id number], 180.34, cm, 10/30/20 10:01:00 CDT, Height, 79.545, kg, 10/30/20 10:01:00 CDT, Weight sildenafil 1-0 No 100 mg = 1 M emoria 100 MG Oral 4-12 tab, PO, l Tablet 15:45: Daily, PRN Bette nn [Viagra] 00 for erectile dysfunctio n, Take 30 minutes prior to intercours e, # 10 tab, 3 Refill(s), Pharmacy: [facility] #[id number], 180.34, cm, 10/30/20 10:01:00 CDT, Height, 79.545, kg, 10/30/20 10:01:00 CDT, Weight sildenafil 2021-0 No 100 mg = 1 M emoria 100 MG Oral 4-12 tab, PO, l Tablet 15:45: Daily, PRN Bette nn [Viagra] 00 for erectile dysfunctio n, Take 30 minutes prior to intercours e, # 10 tab, 3 Refill(s), Pharmacy: [facility] #[id number], 180.34, cm, 10/30/20 10:01:00 CDT, Height, 79.545, kg, 10/30/20 10:01:00 CDT, Weight sildenafil No 100 mg = 1 M emoria 100 MG Oral 4-12 tab, PO, l Tablet 15:45: Daily, PRN Bette nn [Viagra] 00 for erectile dysfunctio n, Take 30 minutes prior to intercours e, # 10 tab, 3 Refill(s), Pharmacy: [facility] #[id number], 180.34, cm, 10/30/20 10:01:00 CDT, Height, 79.545, kg, 10/30/20 10:01:00 CDT, Weight Vitamin D3 Yes 0 Memoria 4-12 Refill(s) l 15:11: [place] Vitamin D3 Yes 0 Memoria 4-12 Refill(s) l 15:11: [place] 00 Vitamin D3 Yes 0 Memoria 4-12 Refill(s) l 15:11: Acetaminoph No Notes: Roman yves en 08-18 Infuse l 17:40: over 15 minutes Do not exceed 4gm/day of acetaminop [...] Size: 4 mg Product Wasted: ___ mg Acetaminoph No Notes: Roman yves en 08-18 Infuse l 17:40: over 15 [place] 00 minutes Do not exceed 4gm/day of acetaminop hen MEDICATION WASTE Product Size: 1000 mg Product Wasted: ___ mg Oxycodone No Notes: Memori a Hydrochlori 08-18 (Same as: l de 5 MG 17:40: Roxicodone Herm gallito Oral Tablet ) Fentanyl No Notes: Memoria 08-18 (Same as: l 17:40: Sublimaze) [place] Preservati ve free. Hydromorpho No Notes: Roman yves ne 08-18 Same as: l 17:40: Dilaudid [place] Flumazenil No Notes: Memor ia 08-18 (Same as: l 17:40: Romazicon) [place] Naloxone No Notes: Memoria 08-18 Same as l 17:40: Narcan [place] 00 Ondansetron No Notes: Roman yves 08-18 (Same as: l 17:40: Zofran) [place] MEDICATION WASTE Product Size: 4 mg Product Wasted: ___ mg Acetaminoph No Notes: Roman yves en 08-18 Infuse l 17:40: over 15 [place] 00 minutes Do not exceed 4gm/day of acetaminop hen MEDICATION WASTE Product Size: 1000 mg Product Wasted: ___ mg Oxycodone No Notes: Memori a Hydrochlori 08-18 (Same as: l de 5 MG 17:40: Roxicodone Herm gallito Oral Tablet ) Fentanyl No Notes: Memoria 08-18 (Same as: l 17:40: Sublimaze) [place] 00 Preservati ve free. Hydromorpho No Notes: Roman yves ne 08-18 Same as: l 17:40: Dilaudid [place] Flumazenil No Notes: Memor ia 08-18 (Same as: l 17:40: Romazicon) [place] 00 Naloxone No Notes: Memoria 1-29 Same as l 17:40: Narcan Ondansetron No Notes: Roman yves 1- (Same as: l 17:40: Zofran) MEDICATION WASTE Product Size: 4 mg Product Wasted: ___ mg 24 HR Yes 50 mg = 1 Memoria mirabegron 1-29 tab, PO, l 50 MG 17:10: Daily, For Linus n Extended 00 the first Release 5 days Tablet after [Myrbetriq] surgery take daily. After that, take daily as needed for urinary frequency and urgency, # 21 tab, 0 Refill(s), Pharmacy: [facility] #[id number], 180.34, cm, 08/16/20 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, Height, 79.636, kg, 01... 24 HR Yes 50 mg = 1 Memoria mirabegron 1-29 tab, PO, l 50 MG 17:10: Daily, For Linus n Extended 00 the first Release 5 days Tablet after [Myrbetriq] surgery take daily. After that, take daily as needed for urinary frequency and urgency, # 21 tab, 0 Refill(s), Pharmacy: [facility] #[id number], 180.34, cm, 08/16/20 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, Height, 79.636, kg, 01... 24 HR Yes 50 mg = 1 Memoria mirabegron 1-29 tab, PO, l 50 MG 17:10: Daily, For Linus n Extended 00 the first Release 5 days Tablet after [Myrbetriq] surgery take daily. After that, take daily as needed for urinary frequency and urgency, # 21 tab, 0 Refill(s), Pharmacy: [facility] #[id number], 180.34, cm, 08/16/20 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, Height, 79.636, kg, 01... ondansetron No Route: IV, Memoria (ANES) 1- Drug form: l 17:06: INJ, ONCE, Stop date: 08/18/20 11:06:00 [employer] dexamethaso No Route: IV, Memoria ne (ANES) 08-18 Drug form: l 17:06: INJ, ONCE, Stop date: 08/18/20 11:06:00 [employer] ondansetron 2020-0 No Route: IV, Memoria (ANES) 08-18 Drug form: l 17:06: INJ, ONCE, Stop date: 08/18/20 11:06:00 [employer] dexamethaso 0 No Route: IV, Memoria ne (ANES) 08-18 Drug form: l 17:06: INJ, ONCE, Stop date: 08/18/20 11:06:00 [employer] ondansetron 0 No Route: IV, Memoria (ANES) 08-18 Drug form: l 17:06: INJ, ONCE, Stop date: 08/18/20 11:06:00 [employer] dexamethaso 2020-0 No Route: IV, Memoria ne (ANES) 08-18 Drug form: l 17:06: INJ, ONCE, Stop date: 08/18/20 11:06:00 [employer] fentaNYL 2020-0 No Route: IV, Mem oria (ANES) 08-18 Drug form: l 16:35: INJ, ONCE, Stop date: 08/18/20 10:35:00 [employer] lidocaine 2020-0 No Route: IV, Me moria (ANES) 08-18 Drug form: l 16:35: INJ, ONCE, Stop date: 08/18/20 10:35:00 [employer] propofol 2020-0 No Route: IV, Mem oria (ANES) 08-18 Drug form: l 16:35: INJ, ONCE, Stop date: 08/18/20 10:35:00 [employer]PER[employer] fentaNYL 2020-0 No Route: IV, Mem oria (ANES) 08-18 Drug form: l 16:35: INJ, ONCE, Stop date: 08/18/20 10:35:00 [employer]PER[employer] lidocaine 2020-0 No Route: IV, Me moria (ANES) 08-18 Drug form: l 16:35: INJ, ONCE, Stop date: 08/18/20 10:35:00 [employer]PER[employer] propofol 2021-0 No Route: IV, Mem oria (ANES) 08-18 Drug form: l 16:35: INJ, ONCE, Stop date: 08/18/20 10:35:00 [employer]PER[employer] fentaNYL No Route: IV, Mem oria (ANES) 08-18 Drug form: l 16:35: INJ, ONCE, Stop date: 08/18/20 10:35:00 [employer]PER[employer] lidocaine No Route: IV, Me moria (ANES) 08-18 Drug form: l 16:35: INJ, ONCE, Stop date: 08/18/20 10:35:00 [employer]PER[employer] propofol No Route: IV, Mem oria (ANES) 08-18 Drug form: l 16:35: INJ, ONCE, Stop date: 08/18/20 10:35:00 [employer]PER[employer] Hyoscyamine No 0.125 mg = Memoria Sulfate 08-18 1 tab, SL, l 0.125 MG 15:57: Q4H, PRN Bette nn Sublingual 00 Bladder Tablet Spasm, # [Levsin] 30 tab, 1 Refill(s), Pharmacy: [facility] #[id number], 180.34, cm, 08/16/20 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, Height, 79.636, kg, 08/16/20 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, Weight Phenazopyri Yes 200 mg = 1 Memoria dine 08-18 tab, PO, l hydrochlori 15:57: TID, PRN He rmann de 200 MG 00 Dysuria, X Oral Tablet 4 day, # [Pyridium] 12 tab, 0 Refill(s), Pharmacy: [facility] #[id number], 180.34, cm, 08/16/20 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, Height, 79.636, kg, 08/16/20 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, Weight tramadol Yes 50 mg = 1 Roman yves hydrochlori 08-18 tab, PO, l de 50 MG 15:57: Q8H, PRN Bette nn Oral Tablet 00 Pain, X 5 day, # 15 tab, 0 Refill(s), Pharmacy: [facility] #[id number], 180.34, cm, 08/16/20 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, Height, 79.636, kg, 08/16/20 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, Weight Tamsulosin Yes 0.4 mg = 1 M emoria hydrochlori 29 cap, PO, l de 0.4 MG 15:57: Daily, # Herm gallito Oral 00 10 cap, 0 Capsule Refill(s), [Flomax] Pharmacy: [facility] #[id number], 180.34, cm, 08/16/20 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, Height, 79.636, kg, 08/16/20 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, Weight Hyoscyamine No 0.125 mg = Memoria Sulfate 08-18 1 tab, SL, l 0.125 MG 15:57: Q4H, PRN Bette nn Sublingual 00 Bladder Tablet Spasm, # [Levsin] 30 tab, 1 Refill(s), Pharmacy: [facility] #[id number], 180.34, cm, 08/16/20 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, Height, 79.636, kg, 08/16/20 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, Weight Phenazopyri 0 Yes 200 mg = 1 Memoria dine 29 tab, PO, l hydrochlori 15:57: TID, PRN He rmann de 200 MG 00 Dysuria, X Oral Tablet 4 day, # [Pyridium] 12 tab, 0 Refill(s), Pharmacy: [facility] #[id number], 180.34, cm, 08/16/20 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, Height, 79.636, kg, 08/16/20 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, Weight tramadol 0 Yes 50 mg = 1 Roman yves hydrochlori 29 tab, PO, l de 50 MG 15:57: Q8H, PRN Bette nn Oral Tablet 00 Pain, X 5 day, # 15 tab, 0 Refill(s), Pharmacy: [facility] #[id number], 180.34, cm, 08/16/20 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, Height, 79.636, kg, 08/16/20 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, Weight Tamsulosin Yes 0.4 mg = 1 M emoria hydrochlori 1-29 cap, PO, l de 0.4 MG 15:57: Daily, # Herm gallito Oral 00 10 cap, 0 Capsule Refill(s), [Flomax] Pharmacy: [facility] #[id number], 180.34, cm, 08/16/20 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, Height, 79.636, kg, 08/16/20 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, Weight Hyoscyamine No 0.125 mg = Memoria Sulfate 08-18 1 tab, SL, l 0.125 MG 15:57: Q4H, PRN Bette nn Sublingual 00 Bladder Tablet Spasm, # [Levsin] 30 tab, 1 Refill(s), Pharmacy: [facility] #[id number], 180.34, cm, 08/16/20 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, Height, 79.636, kg, 08/16/20 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, Weight Phenazopyri Yes 200 mg = 1 Memoria dine 08-18 tab, PO, l hydrochlori 15:57: TID, PRN He rmann de 200 MG 00 Dysuria, X Oral Tablet 4 day, # [Pyridium] 12 tab, 0 Refill(s), Pharmacy: [facility] #[id number], 180.34, cm, 08/16/20 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, Height, 79.636, kg, 08/16/20 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, Weight tramadol Yes 50 mg = 1 Roman yves hydrochlori 08-18 tab, PO, l de 50 MG 15:57: Q8H, PRN Bette nn Oral Tablet 00 Pain, X 5 day, # 15 tab, 0 Refill(s), Pharmacy: [id number], 180.34, cm, 08/16/20 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, Height, 79.636, kg, 08/16/20 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, Weight Tamsulosin Yes 0.4 mg = 1 M emoria hydrochlori 1-29 cap, PO, l de 0.4 MG 15:57: Daily, # Herm gallito Oral 00 10 cap, 0 Capsule Refill(s), [Flomax] Pharmacy: [id number], 180.34, cm, 08/16/20 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, Height, 79.636, kg, 08/16/20 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, Weight Lactated No Route: IV, Mem oria Ringers -29 Total l Injection 15:50: Volume: Bette nn IV (ANES) 00 1,000, 1000 mL Start date: 08/18/20 9:50:00 [employer]PERVISOR, Stop date: 08/18/20 10:50:00 [employer] SUPERVISOR Lactated 0 No Route: IV, Mem oria Ringers -29 Total l Injection 15:50: Volume: Bette nn IV (ANES) 00 1,000, 1000 mL Start date: 08/18/20 9:50:00 [employer] SUPERVISOR, Stop date: 08/18/20 10:50:00 [employer] SUPERVISOR Lactated 0 No Route: IV, Mem oria Ringers -29 Total l Injection 15:50: Volume: Bette nn IV (ANES) 00 1,000, 1000 mL Start date: 08/18/20 9:50:00 [employer] SUPERVISOR, Stop date: 08/18/20 10:50:00 [employer]PER[employer] ciprofloxac 0 No Route: IV, Memoria in (ANES) 2 08-18 Drug form: l mg 15:45: INJ, Start date: 08/18/20 9:45:00 [employer] SUPERVISOR, Stop date: 08/18/20 10:45:00 [employer]PER[employer] ciprofloxac 2020-0 No Route: IV, Memoria in (ANES) 2 08-18 Drug form: l mg 15:45: INJ, Start date: 08/18/20 9:45:00 [employer] SUPERVISOR, Stop date: 08/18/20 10:45:00 [employer]PER[employer] ciprofloxac 0 No Route: IV, Memoria in (ANES) 2 08-18 Drug form: l mg 15:45: INJ, Start date: 08/18/20 9:45:00 [employer] SUPERVISOR, Stop date: 08/18/20 10:45:00 [employer]PER[employer]OR Calcium 2020-0 No 1,000 mL, Memor ia Chloride 08-18 Rate: 75 l 0.0014 15:18: ml/hr, [place] MEQ/ML / 00 Infuse Potassium over: 13.3 Chloride hr, Route: 0.004 IV, Dosing MEQ/ML / Weight Sodium 79.636 kg, Chloride Total 0.103 Volume: MEQ/ML / 1,000, Sodium Start Lactate date: 0.028 08/18/20 MEQ/ML 9:18:00 Injectable [employer], Solution Duration: 30 day, Stop date: 09/17/20 9:17:00 [employer]PER[employer], 2.01, m2, 0 Calcium 1-0 No 1,000 mL, Memor ia Chloride 08-18 Rate: 75 l 0.0014 15:18: ml/hr, [place] MEQ/ML / 00 Infuse Potassium over: 13.3 Chloride hr, Route: 0.004 IV, Dosing MEQ/ML / Weight Sodium 79.636 kg, Chloride Total 0.103 Volume: MEQ/ML / 1,000, Sodium Start Lactate date: 0.028 08/18/20 MEQ/ML 9:18:00 Injectable [employer], Solution Duration: 30 day, Stop date: 09/17/20 9:17:00 [employer] SUPERVISOR, 2.01, m2, 0 Calcium 1-0 No 1,000 mL, Memor ia Chloride 08-18 Rate: 75 l 0.0014 15:18: ml/hr, [place] MEQ/ML / 00 Infuse Potassium over: 13.3 Chloride hr, Route: 0.004 IV, Dosing MEQ/ML / Weight Sodium 79.636 kg, Chloride Total 0.103 Volume: MEQ/ML / 1,000, Sodium Start Lactate date: 0.028 08/18/20 MEQ/ML 9:18:00 Injectable [employer], Solution Duration: 30 day, Stop date: 09/17/20 9:17:00 [employer] SUPER[employer]OR, 2.01, m2, 0 glycopyrron 1-0 No 0.4 mg, Mem oria ium 08-04 Route: l 15:20: IVP, ONCE, Dosing Weight 78.75, kg, Start date: 08/04/20 9:20:00 [employer]PER[employer]OR, Stop date: 08/04/20 9:20:00 [employer]PER[employer]OR glycopyrron 2020-0 No 0.4 mg, Mem oria ium 08-04 Route: l 15:20: IVP, ONCE, Dosing Weight 78.75, kg, Start date: 08/04/20 9:20:00 [employer] SUPERVISOR, Stop date: 08/04/20 9:20:00 [employer]PER[employer]OR glycopyrron 2020-0 No 0.4 mg, Mem oria ium -15 Route: l 15:20: IVP, ONCE, Dosing Weight 78.75, kg, Start date: 08/04/20 9:20:00 [employer]PERVISOR, Stop date: 08/04/20 9:20:00 [employer] SUPERVISOR Levsin SL 2020-0 No Notes: Memori a 1-15 (Same as: l 15:15: Levsin) Take 30 min before meal Levsin SL 2020-0 No Notes: Memori a 1-15 (Same as: l 15:15: Levsin) Take 30 min before meal Levsin SL 2020-0 No Notes: Memori a 1-15 (Same as: l 15:15: Levsin) Take 30 min before meal glycopyrrol 2020-0 No Route: IV, Memoria ate (ANES) 15 Drug form: l 14:45: INJ, ONCE, Stop date: 08/04/20 8:45:00 [employer]OR neostigmine 2020-0 No Route: IV, Memoria (ANES) -15 Drug form: l 14:45: INJ, ONCE, Stop date: 08/04/20 8:45:00 [employer] glycopyrrol 2020-0 No Route: IV, Memoria ate (ANES) -15 Drug form: l 14:45: INJ, ONCE, Stop date: 08/04/20 8:45:00 [employer]PER[employer]OR neostigmine 2020-0 No Route: IV, Memoria (ANES) -15 Drug form: l 14:45: INJ, ONCE, Stop date: 08/04/20 8:45:00 [employer]PER[employer]OR glycopyrrol 2020-0 No Route: IV, Memoria ate (ANES) 1-15 Drug form: l 14:45: INJ, ONCE, Stop date: 08/04/20 8:45:00 [employer] neostigmine 2020-0 No Route: IV, Memoria (ANES) 1-15 Drug form: l 14:45: INJ, ONCE, Stop date: 08/04/20 8:45:00 [employer] Tamsulosin 2020-0 Yes 0.4 mg = 1 M emoria hydrochlori 1-15 cap, PO, l de 0.4 MG 14:43: Daily, # Herm gallito Oral 00 30 cap, 0 Capsule Refill(s), [Flomax] Pharmacy: [facility] #[id number], 180.34, cm, 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, Height, 80.455, kg, 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, Weight Phenazopyri 0 No 200 mg = 1 Memoria dine 1-15 tab, PO, l hydrochlori 14:43: TID, PRN He rmann de 200 MG 00 Dysuria, X Oral Tablet 2 day, # 6 [Pyridium] tab, 0 Refill(s), Pharmacy: [facility] #[id number], 180.34, cm, 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, Height, 80.455, kg, 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, Weight Hyoscyamine 2020-0 Yes 0.125 mg = Memoria Sulfate 1-15 1 tab, SL, l 0.125 MG 14:43: Q6H, PRN Bette nn Sublingual 00 Bladder Tablet Spasm, # [Levsin] 20 tab, 0 Refill(s), Pharmacy: [facility] #[id number], 180.34, cm, 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, Height, 80.455, kg, 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, Weight Tamsulosin 2020-0 Yes 0.4 mg = 1 M emoria hydrochlori 1-15 cap, PO, l de 0.4 MG 14:43: Daily, # Herm gallito Oral 00 30 cap, 0 Capsule Refill(s), [Flomax] Pharmacy: [facility] #[id number], 180.34, cm, 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, Height, 80.455, kg, 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, Weight Phenazopyri 2020-0 No 200 mg = 1 Memoria dine 1-15 tab, PO, l hydrochlori 14:43: TID, PRN He rmann de 200 MG 00 Dysuria, X Oral Tablet 2 day, # 6 [Pyridium] tab, 0 Refill(s), Pharmacy: [facility] #[id number], 180.34, cm, 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, Height, 80.455, kg, 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, Weight Hyoscyamine 2020-0 Yes 0.125 mg = Memoria Sulfate 1-15 1 tab, SL, l 0.125 MG 14:43: Q6H, PRN Bette nn Sublingual 00 Bladder Tablet Spasm, # [Levsin] 20 tab, 0 Refill(s), Pharmacy: [facility] #[id number], 180.34, cm, 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, Height, 80.455, kg, 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, Weight Tamsulosin 0 Yes 0.4 mg = 1 M emoria hydrochlori 1-15 cap, PO, l de 0.4 MG 14:43: Daily, # Herm gallito Oral 00 30 cap, 0 Capsule Refill(s), [Flomax] Pharmacy: [facility] #[id number], 180.34, cm, 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, Height, 80.455, kg, 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, Weight Phenazopyri 2020-0 No 200 mg = 1 Memoria dine 1-15 tab, PO, l hydrochlori 14:43: TID, PRN He rmann de 200 MG 00 Dysuria, X Oral Tablet 2 day, # 6 [Pyridium] tab, 0 Refill(s), Pharmacy: [facility] #[id number], 180.34, cm, 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, Height, 80.455, kg, 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, Weight Hyoscyamine 2020-0 Yes 0.125 mg = Memoria Sulfate 1-15 1 tab, SL, l 0.125 MG 14:43: Q6H, PRN Bette nn Sublingual 00 Bladder Tablet Spasm, # [Levsin] 20 tab, 0 Refill(s), Pharmacy: [id number], 180.34, cm, 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, Height, 80.455, kg, 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, Weight ciprofloxac 0 No Route: IV, Memoria in (ANES) 1-15 Drug form: l 14:37: INJ, ONCE, Stop date: 08/04/20 8:37:00 [employer] ciprofloxac 0 No Route: IV, Memoria in (ANES) 1- Drug form: l 14:37: INJ, ONCE, Stop date: 08/04/20 8:37:00 [employer] SUPER[employer] ciprofloxac No Route: IV, Memoria in (ANES) 1- Drug form: l 14:37: INJ, ONCE, Stop date: 08/04/20 8:37:00 [employer] midazolam 2020-0 No Route: IV, Me moria (ANES) 1- Drug form: l 14:32: SOLN, ONCE, Stop date: 08/04/20 8:32:00 [employer] lidocaine 2020-0 No Route: IV, Me moria (ANES) 1-15 Drug form: l 14:32: INJ, ONCE, Stop date: 08/04/20 8:32:00 [employer] fentaNYL 2020-0 No Route: IV, Mem oria (ANES) 1- Drug form: l 14:32: INJ, ONCE, Stop date: 08/04/20 8:32:00 [employer] propofol 2020-0 No Route: IV, Mem oria (ANES) 1-15 Drug form: l 14:32: INJ, ONCE, Stop date: 08/04/20 8:32:00 [employer]PER[employer] rocuronium 2020-0 No Route: IV, M emoria (ANES) 1-15 Drug form: l 14:32: INJ, ONCE, Stop date: 08/04/20 8:32:00 [employer] SUPER[employer]OR ondansetron 2020-0 No Route: IV, Memoria (ANES) 1-15 Drug form: l 14:32: INJ, ONCE, Stop date: 08/04/20 8:32:00 [employer] SUPERVISOR midazolam 2020-0 No Route: IV, Me moria (ANES) 1-15 Drug form: l 14:32: SOLN, [place] 00 ONCE, Stop date: 08/04/20 8:32:00 [employer] SUPERVISOR lidocaine 2020-0 No Route: IV, Me moria (ANES) 1-15 Drug form: l 14:32: INJ, ONCE, [place] 00 Stop date: 08/04/20 8:32:00 [employer]SEM[employer] SUPERVISOR fentaNYL 2020-0 No Route: IV, Mem oria (ANES) 1-15 Drug form: l 14:32: INJ, ONCE, [place] 00 Stop date: 08/04/20 8:32:00 [employer]SEM[employer] SUPERVISOR propofol 2020-0 No Route: IV, Mem oria (ANES) 1-15 Drug form: l 14:32: INJ, ONCE, Stop date: 08/04/20 8:32:00 [employer]SEM[employer] SUPERVISOR rocuronium 2020-0 No Route: IV, M emoria (ANES) 1-15 Drug form: l 14:32: INJ, ONCE, Stop date: 08/04/20 8:32:00 [employer]SEM[employer] SUPERVISOR ondansetron 2020-0 No Route: IV, Memoria (ANES) 1-15 Drug form: l 14:32: INJ, ONCE, Stop date: 08/04/20 8:32:00 [employer] SUPERVISOR midazolam 2020-0 No Route: IV, Me moria (ANES) 1-15 Drug form: l 14:32: SOLN, [place] 00 ONCE, Stop date: 08/04/20 8:32:00 [employer]SEM[employer] SUPERVISOR lidocaine 2020-0 No Route: IV, Me moria (ANES) 1-15 Drug form: l 14:32: INJ, ONCE, [place] 00 Stop date: 08/04/20 8:32:00 [employer]SEM[employer] SUPERVISOR fentaNYL 2020-0 No Route: IV, Mem oria (ANES) 1-15 Drug form: l 14:32: INJ, ONCE, [place] 00 Stop date: 08/04/20 8:32:00 [employer]SEM[employer] SUPERVISOR propofol 2020-0 No Route: IV, Mem oria (ANES) 1-15 Drug form: l 14:32: INJ, ONCE, [place] 00 Stop date: 08/04/20 8:32:00 [employer]SEM[employer] SUPERVISOR rocuronium 2020-0 No Route: IV, M emoria (ANES) 1-15 Drug form: l 14:32: INJ, ONCE, Stop date: 08/04/20 8:32:00 [employer]SEM[employer] SUPERVISOR ondansetron 2020-0 No Route: IV, Memoria (ANES) 1-15 Drug form: l 14:32: INJ, ONCE, Stop date: 08/04/20 8:32:00 [employer]SEM[employer] SUPERVISOR Lactated 2020-0 No Route: IV, Mem oria Ringers 1-15 Total l Injection 13:41: Volume: Bette nn IV (ANES) 00 1,000, 1000 mL Start date: 08/04/20 7:41:00 [employer]SEM[employer] SUPERVISOR, Stop date: 08/04/20 8:41:00 [employer]SEM[employer] SUPERVISOR Lactated 2020-0 No Route: IV, Mem oria Ringers 1-15 Total l Injection 13:41: Volume: Bette nn IV (ANES) 00 1,000, 1000 mL Start date: 08/04/20 7:41:00 [employer]SEM[employer] SUPERVISOR, Stop date: 08/04/20 8:41:00 [employer] ASSEM[employer]Y SUPERVISOR Lactated 2020-0 No Route: IV, Mem oria Ringers 1-15 Total l Injection 13:41: Volume: Bette nn IV (ANES) 00 1,000, 1000 mL Start date: 08/04/20 7:41:00 [employer] ASSEMBL[employer] SUPERVISOR, Stop date: 08/04/20 8:41:00 [employer] ASSEM[employer]Y SUPERVISOR Lactated 2020-0 No 1,000 mL, Roman yves Ringers IV -15 Rate: 40 l 1,000 mL 12:11: ml/hr, [place] 00 Infuse over: 25 hr, Route: IV, Dosing Weight 80.455 kg, Total Volume: 1,000, Start date: 08/04/20 6:11:00 [employer] SUPERVISOR, Duration: 30 day, Stop date: 09/03/20 6:10:00 [employer]SEM[employer] SUPERVISOR, 2.02, m2, 0 Lactated 2020-0 No 1,000 mL, Roman yves Ringers IV -15 Rate: 40 l 1,000 mL 12:11: ml/hr, [place] 00 Infuse over: 25 hr, Route: IV, Dosing Weight 80.455 kg, Total Volume: 1,000, Start date: 08/04/20 6:11:00 [employer]SEM[employer] SUPERVISOR, Duration: 30 day, Stop date: 09/03/20 6:10:00 [employer] ASSEM[employer]Y SUPERVISOR, 2.02, m2, 0 Lactated No 1,000 mL, Roman yves Ringers IV 1-15 Rate: 40 l 1,000 mL 12:11: ml/hr, [place] 00 Infuse over: 25 hr, Route: IV, Dosing Weight 80.455 kg, Total Volume: 1,000, Start date: 08/04/20 6:11:00 [employer]SEM[employer] SUPERVISOR, Duration: 30 day, Stop date: 09/03/20 6:10:00 [employer]SEM[employer] SUPERVISOR, 2.02, m2, 0 Vitamin D3 Yes = 1 tab, Mem oria 1-15 PO, Daily, l 12:10: 0 [place] 00 Refill(s) Vitamin D3 Yes = 1 tab, Mem oria 1-15 PO, Daily, l 12:10: 0 [place] 00 Refill(s) Vitamin D3 Yes = 1 tab, Mem oria 1-15 PO, Daily, l 12:10: 0 [place] 00 Refill(s) Vital Signs Vital Name Observation Time Observation Value Comments Source Height 2020-11-20 19:41:00 180.34 [facility] 2020-11-20 19:41:00 [facility] BMI Calculated 2020-11-20 19:41:00 [facility] [place] Height 2020-10-30 15:01:00 180.34 cm [facility] [place] Weight 2020-10-30 15:01:00 [facility] [place] BMI Calculated 2020-10-30 15:01:00 [facility] [place] Height 2020-09-01 19:38:00 180.34 cm [facility] Weight 2020-09-01 19:38:00 [facility] [place] BMI Calculated 2020-09-01 19:38:00 [facility] [place] Respitory Rate 2020-08-18 18:30:00 [facility] [place] Systolic (mm Hg) 2020-08-18 18:30:00 Roman rial [place] Diastolic (mm Hg) 2020-08-18 18:30:00 Mem orial [place] Respitory Rate 2020-08-18 18:00:00 [facility] [place] Systolic (mm Hg) 2020-08-18 18:00:00 Roman rial [place] Diastolic (mm Hg) 2020-08-18 18:00:00 Mem orial [place] Respitory Rate 2020-08-18 17:45:00 [facility] [place] Systolic (mm Hg) 2020-08-18 17:45:00 Roman rial [place] Diastolic (mm Hg) 2020-08-18 17:45:00 Mem orial [place] Height 2020-08-16 17:17:00 180.34 cm [facility] [place] Weight 2020-08-16 17:17:00 [facility] [place] BMI Calculated 2020-08-16 17:17:00 [facility] [place] Height 2020-08-11 16:16:00 180.34 cm [facility] [place] Weight 2020-08-11 16:16:00 [facility] [place] BMI Calculated 2020-08-11 16:16:00 [facility] [place] Respitory Rate 2020-08-04 16:15:00 [facility] [place] Systolic (mm Hg) 2020-08-04 16:15:00 Roman rial [place] Diastolic (mm Hg) 2020-08-04 16:15:00 Mem orial [place] Respitory Rate 2020-08-04 15:45:00 [facility] [place] Systolic (mm Hg) 2020-08-04 15:45:00 Roman rial [place] Diastolic (mm Hg) 2020-08-04 15:45:00 Mem orial [place] Respitory Rate 2020-08-04 15:30:00 [facility] [place] Systolic (mm Hg) 2020-08-04 15:30:00 Roman rial [place] Diastolic (mm Hg) 2020-08-04 15:30:00 Mem orial [place] Weight 2020-08-04 15:18:00 [facility] [place] BMI Calculated 2020-08-04 15:18:00 [facility] [place] Height 2020-08-02 17:09:00 180.34 cm [facility] [place] Height 2020-07-28 19:30:00 180.34 cm [facility] [place] Weight 2020-07-28 19:30:00 [facility] [place] BMI Calculated 2020-07-28 19:30:00 [facility] [place] Height 2020-06-23 20:32:00 180.34 cm [facility] [place] Weight 2020-06-23 20:32:00 [facility] [place] BMI Calculated 2020-06-23 20:32:00 [facility] [place] Height 2020-06-07 15:25:00 180.34 cm [facility] Weight 2020-06-07 15:25:00 [facility] [place] BMI Calculated 2020-06-07 15:25:00 [facility] [place] Procedures Procedure Date / Time Performed Performing Clinician Sourc e Colectomy [facility] [place] Colostomy [facility] [place] Tonsillectomy [facility] [place] Cystoscopy [facility] Encounters Start End Encounter Admission Attending Care Care Encounter Source Date/Time Date/Time Type Type Clinicians Facility Department ID 2020-01-21 Outpatient SYSTEM, [facility] [id number] 09:54:19 PROVIDER Escobar o n 2020-11-20 2020-11-21 Outpatient nullFlavo [facility] 55 [id number] Memoria 19:45:00 04:59:59 r Specialty 09 l [facility] 2020-11-20 2020-11-21 Outpatient nullFlavo [facility] 55 [id number] Memoria 19:45:00 04:59:59 r Specialty 09 l [facility] 2020-11-20 2020-11-20 Outpatient Aurea MG [id number] 14:45:00 23:59:59 Regina L 09 2020-11-20 2020-11-20 Outpatient MHIE MHIE [id number] Memoria 14:45:00 14:45:00 09 [facility] 2020-10-30 2020-10-31 Outpatient nullFlavo [facility] 55 [id number] Memoria 14:40:00 04:59:59 r Specialty 08 l [facility] 2020-10-30 2020-10-31 Outpatient nullFlavo [facility] 55 [id number] Memoria 14:40:00 04:59:59 r Specialty 08 l [facility] 2020-10-30 2020-10-30 Outpatient [place], [place] [id number] 09:40:00 23:59:59 Regina L 08 2020-10-30 2020-10-30 Outpatient MHIE MHIE [id number] Memoria 09:40:00 09:40:00 08 [facility] 2020-10-20 2020-10-21 Outpt Diag nullFlavo [facility] [id number] Memoria 16:33:00 04:59:00 Services r Outpatient 00 l [facility] [place] 2020-10-20 2020-10-21 Outpt Diag nullFlavo [facility] [id number] Memoria 16:33:00 04:59:00 Services r Outpatient 00 l [facility] [place] 2020-10-20 2020-10-20 [facility] [id number] 11:33:00 23:59:00 Regina L 00 2020-09-01 2020-09-02 Outpatient nullFlavo [facility] [id number] Memoria 20:00:00 05:59:59 r Urology 07 l Associates [facility] nn [facility] Share 2020-09-01 2020-09-02 Outpatient nullFlavo [facility] [id number] Memoria 20:00:00 05:59:59 r Urology 06 l Associates Bette nn Time Share 2020-09-01 2020-09-02 Outpatient nullFlavo [facility] [id number] Memoria 20:00:00 05:59:59 r Urology 07 l Associates Bette nn Time Share 2020-09-01 2020-09-02 Outpatient nullFlavo [facility] [id number] Memoria 20:00:00 05:59:59 r Urology 06 l Associates Bette nn Time Share 2020-09-01 2020-09-01 Outpatient Staller, [facility] [id number] 14:00:00 23:59:59 Regina L 07 2020-09-01 2020-09-01 Outpatient Staller, [facility] [id number] 14:00:00 23:59:59 Regina L 06 2020-09-01 2020-09-01 Outpatient MHIE IE [id number] Memoria 14:00:00 14:00:00 06 herman Reis 2020-09-01 2020-09-01 Outpatient MHIE MAGUEIE [id number] Memoria 14:00:00 14:00:00 07 l [place] 2020-08-18 2020-08-18 Day nullFlavo [facility] [id number] Memoria 14:50:00 18:50:00 Surgery r [place] 02 [facility] 2020-08-18 2020-08-18 Day nullFlavo [facility] [id number] Memoria 14:50:00 18:50:00 Surgery r [place] [facility] 2020-08-18 2020-08-18 Outpatient Staller, [facility] [id number] 08:50:00 12:50:00 Regina L 2020-08-18 2020-08-18 Outpatient Staller, [facility] [id number] 08:50:00 12:50:00 Regina L 2020-08-18 2020-08-18 Outpatient STALLER, [facility]BL BOBBY [id number] MHBL 08:50:00 12:50:00 REGINA 2020-08-11 2020-08-11 Outpatient MHIE MHIE [id number] Memoria 11:00:00 11:00:00 05 [facility] 2020-08-11 2020-08-11 Outpatient MHIE MHIE [id number] Memoria 11:00:00 11:00:00 05 [facility] 2020-08-04 2020-08-04 Day nullFlavo [facility] [id number] Memoria 11:23:00 16:20:00 Surgery r [place] [facility] 2020-08-04 2020-08-04 Day nullFlavo [facility] [id number] Memoria 11:23:00 16:20:00 Surgery r [place] [facility] 2020-08-04 2020-08-04 Outpatient Staller, [facility] MHPL [id number] 05:23:00 10:20:00 Regina 2020-08-04 2020-08-04 Outpatient STALLER, [facility] BOBBY [id number] MHBL 05:23:00 10:20:00 REGINA 2020-07-26 2020-07-26 Ambulatory nullFlavo [facility] 55 [id number] Memoria 15:20:00 15:20:00 Pre-Reg r Specialty 03 l [facility] 2020-07-26 2020-07-26 Ambulatory nullFlavo [facility] 55 [id number] Memoria 15:20:00 15:20:00 Pre-Reg r Specialty 03 l [facility] 2020-07-26 2020-07-26 Outpatient MHIE MHIE [id number] Memoria 09:20:00 09:20:00 03 herman Reis 2020-07-26 2020-07-26 Outpatient Staller, [facility] MHMG [id number] 09:20:00 09:20:00 Regina L 2020-07-19 2020-07-20 Outpatient nullFlavo [facility] 55 [id number] Memoria 15:20:00 05:59:59 r Specialty 04 l [facility] 2020-07-19 2020-07-20 Outpatient nullFlavo [facility] 55 [id number] Memoria 15:20:00 05:59:59 r Specialty 04 l [facility] 2020-07-19 2020-07-19 Outpatient Staller, [facility] [id number] 09:20:00 23:59:59 Regina L 2020-07-19 2020-07-19 Outpatient MHIE MHIE [id number] Memoria 09:20:00 09:20:00 04 herman Reis 2020-06-23 2020-06-24 Outpatient nullFlavo [facility] [id number] Memoria 22:10:00 05:59:59 r Urology 01 l Cari Bette nn Time Share 2020-06-23 2020-06-24 Outpatient nullFlavo [facility] [id number] Memoria 22:10:00 05:59:59 r Urology 01 l Associates Bette nn Time Share 2020-06-23 2020-06-24 Outpatient nullFlavo [facility] [id number] Memoria 22:00:00 05:59:59 r Urology 02 l Associates Bette nn Time Share 2020-06-23 2020-06-24 Outpatient nullFlavo [facility] [id number] Memoria 22:00:00 05:59:59 r Urology 02 l Cari Bette nn Time Share 2020-06-23 2020-06-23 Outpatient Staller, [facility] [id number] 16:10:00 23:59:59 Regina L 2020-06-23 2020-06-23 Outpatient VISIT, [facility] [id number] 16:00:00 23:59:59 NURSE UATS 2020-06-23 2020-06-23 Outpatient IE POLLO [id number] Memoria 16:10:00 16:10:00 01 l [place] 2020-06-23 2020-06-23 Outpatient MHIE POLLO [id number] Memoria 16:00:00 16:00:00 02 l [place] 2020-06-20 2020-06-21 Outpatient nullFlavo [facility] [id number] Memoria 16:02:00 05:59:[address] [place] [address] [facility] 2020-06-20 2020-06-21 Outpatient nullFlavo [facility] [id number] Memoria 16:02:00 05:59:[address] [place] [address] [facility] 2020-06-20 2020-06-[address] [address] [place] [id number] 10:02:00 23:59:00 Regina L 00 2020-06-20 2020-06-20 Outpatient AUREA MHDANTE BOBBY [id number] MHBL 10:02:00 23:59:00 REGINA 2020-06-07 2020-06-08 Outpatient nullFlavo MG Multi 55 [id number] Memoria 15:20:00 05:59:59 r Specialty 00 l [facility] 2020-06-07 2020-06-08 Outpatient nullFlavo MG Multi 55 [id number] Memoria 15:20:00 05:59:59 r Specialty 00 l [facility] 2020-06-07 2020-06-07 [facility] [id number] 09:20:00 23:59:59 Regina L 00 2020-06-07 2020-06-07 Outpatient IE AYDEN [id number] Memoria 09:20:00 09:20:00 00 [facility] Results Test Description Test Time Test Comments Results Result Comments Source [facility] 2020-08-16 17:17:00 Test Item Value Reference Range Interpretation Comme nts Coronavirus (COVID-19) AIDAN (test code = Not Detected *NA*(08/16/20 1 1:17 AM) Coronavirus (COVID-19) AIDAN) [id number] 17:17:00 Test Item Value Reference Range Interpretation Comments Coronavirus (COVID-19) Not Detected AIDAN (test code = *NA*(08/16/20 11:17 Coronavirus (COVID-19) AM) AIDAN) [id number] 17:17:00 Test Item Value Reference Range Interpretation Comments Coronavirus (COVID-19) Not Detected AIDAN (test code = *NA*(08/16/20 11:17 Coronavirus (COVID-19) AM) AIDAN) [id number] 17:07:00 Test Item Value Reference Range Interpretation Comments Coronavirus (COVID-19) Not Detected AIDAN (test code = *NA*(08/02/20 11:07 Coronavirus (COVID-19) AM) AIDAN) [id number] 17:07:00 Test Item Value Reference Range Interpretation Comments Coronavirus (COVID-19) Not Detected AIDAN (test code = *NA*(08/02/20 11:07 Coronavirus (COVID-19) AM) AIDAN) [facility] [id number] 17:07:00 Test Item Value Reference Range Interpretation Comments Coronavirus (COVID-19) Not Detected AIDAN (test code = *NA*(08/02/20 11:07 Coronavirus (COVID-19) AM) AIDAN) [facility]2020-12-01 16:04:00 Test Item Value Reference Range Interpretation Comments Creatinine Lvl (test code = Creatinine 1.40 0.50-1.40 Lvl) [facility]2020-12-01 16:04:00 Test Item Value Reference Range Interpretation Comments eGFR (test code = eGFR) 51 [facility]2020-12-01 16:04:00 Test Item Value Reference Range Interpretation Comments Creatinine Lvl (test code = Creatinine 1.40 0.50-1.40 Lvl) [facility]2020-12-01 16:04:00 Test Item Value Reference Range Interpretation Comments eGFR (test code = eGFR) 51 [facility]2020-12-01 16:04:00 Test Item Value Reference Range Interpretation Comments Creatinine Lvl (test code = Creatinine 1.40 0.50-1.40 Lvl) [facility]2020-12-01 16:04:00 Test Item Value Reference Range Interpretation Comments eGFR (test code = eGFR) 51 [facility] [id number] 19:09:00 Test Item Value Reference Range Interpretation Comments Result 2 (Urine Culture) See Result Comment (test code = Result 2 (Urine Culture)) [facility] [id number] 19:09:00 Test Item Value Reference Range Interpretation Comments Result 2 (Urine Culture) See Result Comment (test code = Result 2 (Urine Culture)) [facility] [id number] 19:09:00 Test Item Value Reference Range Interpretation Comments Result 2 (Urine Culture) See Result Comment (test code = Result 2 (Urine Culture)) [facility] Notes Date/Time Note Provider Source 2020-10-20 11:56:37-00:00 PROCEDURE INFORMATION: JOAN Cortes Exam: US Retroperitoneal; Complete; Kidneys and Bladder Exam date and time: 10/20/2020 11:57 AM Age: 70 years old Clinical indication: Calculus of kidney; Additio nal info: /without transplant TECHNIQUE: Imaging protocol: Real-time [facility] of the [facility] with image documentation. Complete exam focused on the kidn eys and bladder. COMPARISON: ABDOMEN/PELVIS W/WO IV CONTRAST CT 06/20/2020 11: 01 AM FINDINGS: Right kidney: Normal. There is a 3 mm echogenic focus. No hydronephrosis. There is a 1.5 cm simple cyst noted. Left kidney: Normal. There is a 6 mm echogenic f ocus seen. No hydronephrosis. Urinary bladder: Unremarkable. The bilateral ure teral jets are seen. IMPRESSION: Bilateral nonobstructing subcentimeter nephrolit hiasis Jo Ann Armstrong MD On 10/20/2020 13:04:21; CARMELA-I [id number] 2020-08-18 10:30:00-00:00 PROCEDURE INFORMATION: [facility] Exam: IR Retrograde Urography With Or Without KU B Exam date and time: 08/18/2020 11:15 AM Age: 70 years old Clinical indication: /mgycm6.71. /1.0mins TECHNIQUE: Imaging protocol: Retrograde urography with or w ithout KUB. The interpreting radiologist was not present during the examinati on. Contrast material: OMNI; Contrast volume: 50 ml; Contrast route: NON-VASCULAR INTERVENTIONAL INJECTION (NON-VASCULA; COMPARISON: ABDOMEN/PELVIS W/WO IV CONTRAST CT 06/20/2020 11: 01 AM RADIATION DOSE METRICS: Fluoroscopy time (seconds): 63.9 Number of fluoro spot images: 9 Reference air kerma (ALBAN): 6.71 mGy FINDINGS: Gantry Crane Operator: None Procedural imaging: Spot images show advancement of guidewire within the left ureter to the superior pole infundibulum of the left upper col lecting system. Retrograde opacification of the left upper collecting syste m is noted with limited visualization of the opacified left ureter. Adva ncement of ureteroscope/introducer is noted over a 2nd guid ewire. At least 1 of the subsequent images demonstrates a filling defect at and inferior pole calyx which may represent the calculus noted on recent CT exam 06/20/2020. Final images demonstrate placement of left ureteral st ent with the superior pigtail at the superior pole infundi bulum and the inferior pigtail at the expected left side of the urinary bladder. Bladder not opacifi ed. Tip of the cystoscope is noted at the left paramedian lower pelvis on the final image. Notes: Please also see separate report for cysto ureteroscopy procedure. IMPRESSION: Retrograde urography performed. Please also see separate report for cystoureteroscopy procedure. Fransisco William MD On 08/18/2020 11:35:17; [place] [id number] 2020-08-04 07:30:00-00:00 Clinical history is renal calculi. Yogesh De La O MD On 08/04/2020 09:23:03; [id number] PROCEDURE INFORMATION: Exam: IR Retrograde Urography With Or Without KU B Exam date and time: 08/04/2020 9:12 AM Age: 70 years old Clinical indication: Condition or disease; Addit ional info: /mgycm9.95/51.2 sec; () TECHNIQUE: Imaging protocol: Retrograde urography with or w ithout KUB. The interpreting radiologist was not present during the examinati on. Contrast material: OMNI; Contrast volume: 1 ml; Contrast route: NON-VASCULAR INTERVENTIONAL INJECTION (NON-VASCULA; COMPARISON: ABDOMEN/PELVIS W/WO IV CONTRAST CT 06/20/2020 11: 01 AM RADIATION DOSE METRICS: Fluoroscopy time (seconds): 51.2 Number of fluoro spot images: 8 Reference air kerma (ALBAN): 9.95 mGy FINDINGS: Gantry Crane Operator: Unremarkable. Procedural imaging: Left retrograde urogram demonstrates small filli ng defect in the proximal ureter which may reflect an iatrogenic air pocke t versus stone. Pelviectasis left kidney. A left ureteral stent is placed, pr oximal half not completely imaged. Notes: Please also see separate report for cysto ureteroscopy procedure. IMPRESSION: Retrograde urography performed. Please also see separate report for cystoureteroscopy procedure. Buddy De La O MD On 08/04/2020 09:21:50; [id number] 2020-06-20 11:01:51-00:00 Radiation Dose CTDIVOL = 0 ( mGy): DLP = 750.99 (mGy-cm) [facility] PROCEDURE INFORMATION: Exam: CT Abdomen And Pelvis Without And With Con trast; Urography Exam date and time: 06/20/2020 11:01 AM Age: 70 years old Clinical indication: Other: Gross hematuria; Add itional info: /10-minute delays, urogram TECHNIQUE: Imaging protocol: Computed tomography of the abd omen and pelvis without and with intravenous contrast. Exam focused on the k idneys and ureters. Radiation optimization: All CT scans at this facility use at least one of these dose optimization techniques: automated exposure control; mA and/or kV adjustment per patient size (includes targeted e xams where dose is matched to clinical indication); or iterative reconstructio n. Contrast material: OMNI 350; Contrast volume: 10 0 ml; Contrast route: INTRAVENOUS (IV); Other contrast: Oral, water, 900mlGr; COMPARISON: No relevant prior studies available. RADIATION DOSE METRICS: Total DLP (mGy-cm): 750.99 FINDINGS: Liver: Circumscribed 18 mm cyst in the left lobe of the liver. No other focal liver lesions. Gallbladder and bile ducts: Normal. No calcified stones. No ductal dilation. Pancreas: Normal. No ductal dilation. Spleen: Normal. No splenomegaly. Adrenals: Normal. No mass. Kidneys and ureters: Nonobst ructing 7 mm stone lower pole left kidney. Punctate 1 mm stone mid to lower pole right kidney. The k idneys symmetrically enhance without mass. There is a 9 mm midpole cyst right kidney. No hydronephrosis or collecting system filling defects on delayed john ging. Stomach and bowel: Subtotal colectomy with left lower quadrant ostomy. Intraperitoneal space: Unremarkable. No free air . No significant fluid collection. Lymph nodes: Unremarkable. No enlarged lymph nod es. Vasculature: Unremarkable. No abdominal aortic a neurysm. Bladder: Unremarkable. Reproductive: Mildly enlarged prostate impressin g on the bladder base. Bones/joints: Unremarkable. No acute fracture. N o dislocation. Soft tissues: Unremarkable. Other findings: Haziness in the presacral soft t issues may be treatment related. IMPRESSION: 1. Small bilateral nonobstructing renal calculi. 2. Subtotal colectomy with left lower quadrant o stomy. 3. Cysts are noted in the left lobe of the liver and right kidney. COMMENTS: Consistent with the [employer]'s Incidental Findings Committee white paper (J Am Mary Radiol 2018): Any incidental renal lesion less than 1 cm or classified as too small to characterize, or any incidental cystic renal lesion characterized as simple-nitza earing, is likely benign. No follow-up imaging is recommended for t hese lesions per consensus recommendations based on imaging criteria. Bryson Phillips MD On 06/21/2020 18:42:57; [id number]
[2023-03-10] MEDS ORDERED: ADENOSINE 6 MG/ 2ML VIAL IV ONE (02:53)
[2023-03-10] MEDS ORDERED: NA CHLORIDE 0.9% 1,000 ML ONE (02:53)
[2023-03-10 02:58] LABS: Absolute Lymphocytes (CBC) 2.3 K/uL (0.7-4.9); Hematocrit 47.3 % (39.6-49.0); Lymphocytes % 39.7 % (15.3-44.8); MCV 92.1 fL (80-100); MPV 9.5 fL (7.6-11.3); Platelets 115 thou/uL (152-406); RBC Red Blood Cell Count 5.13 M/uL (4.33-5.43)
[2023-03-10 03:23] LABS: Magnesium 2.1 mg/dL (1.6-2.4); Potassium 3.8 mEq/L (3.5-5.1); Thyroid Stimulating Hormone 2.71 uIU/mL (0.358-3.740); Troponin High Sensitivity 11.9 pg/mL (<58.9)
--- NOTE | 2023-03-10 03:40 | ER ---
Nurse's Notes [facility] Name: Bryce Alegria Age: 72 yrs Sex: Male : 1950 Arrival Date: 03/10/2023 Time: 02:26 Bed 4 Private MD: Diagnosis: Supraventricular tachycardia Presentation: 03/10 02:40 Coronavirus screen: At this time, the client does not indicate any symptoms associated as6 with coronavirus-19. Ebola Screen: No symptoms or risks identified at this time. Initial Sepsis Screen: Does the patient meet any 2 criteria? No. Patient's initial sepsis screen is negative. Does the patient have a suspected source of infection? No. Patient's initial sepsis screen is negative. Risk Assessment: Do you want to hurt yourself or someone else? Patient reports no desire to harm self or others. Onset of symptoms was March 10, 2023. 02:40 Acuity: DOUGIE 1 as6 02:40 Method Of Arrival: Ambulatory as6 02:40 Chief complaint: Patient states: woke up feeling like he was in SVT, has hx of it. as6 Historical: - Allergies: 02:40 NKDA; as6 - PMHx: 02:40 colon cancer; Hypertensive disorder; rectal cancer; SVT; as6 - PSHx: 02:40 Colectomy; ileostomy bag; as6 - Immunization history:: Client reports receiving the 2nd dose of the Covid vaccine, [employer]. - Social history:: Smoking status: Patient denies any tobacco usage or history of. - Family history:: not pertinent. Screenin:54 [facility] ED Fall Risk Assessment (Adult) Score/Fall Risk Level 0 - 2 = Low Risk. Abuse as6 screen: Denies threats or abuse. Denies injuries from another. Nutritional screening: No deficits noted. Tuberculosis screening: No symptoms or risk factors identified. Assessment: 02:35 General: Appears in no apparent distress. Behavior is calm, cooperative. as6 02:35 Pain: Complains of pain in chest Quality of pain is described as dull. Neuro: Level of as6 Consciousness is awake, alert, obeys commands, Oriented to person, place, time, situation. Cardiovascular: Reports palpitations, Capillary refill < 3 seconds Patient's skin is warm and dry. Rhythm is SVT. Respiratory: Respiratory effort is even, unlabored, Respiratory pattern is regular, symmetrical. 03:36 Reassessment: Patient appears in no apparent distress at this time. Patient and/or as6 family updated on plan of care and expected duration. Pain level reassessed. Patient is alert, oriented x 3, equal unlabored respirations, skin warm/dry/pink. Patient denies pain at this time. Patient states feeling better. Patient states symptoms have improved. Vital Signs: 02:39 BP 119 / 94; Pulse 170; Resp 21 S; Temp 97.9(TE); Pulse Ox 99% on R/A; Weight 79.38 kg as6 (R); Height 5 ft. 11 in. (R); Pain 3/10; 02:52 BP 130 / 80; Pulse 70; Resp 18 S; Pulse Ox 99% on R/A; as6 03:36 BP 121 / 83; Pulse 66; Resp 21 S; Pulse Ox 99% on R/A; as6 02:39 Body Mass Index 24.41 (79.38 kg, 180.34 cm) as6 02:39 Pain Scale: Adult as6 ED Course: 02:30 Patient arrived in ED. es 02:30 Kishore Weller MD is Attending Physician. rt 02:31 Eliseo Oliver, RAMÍREZ is Primary Nurse. as6 02:37 Inserted saline lock: 20 gauge in right antecubital area, using aseptic technique. as6 Blood collected. 02:39 Arm band placed on. as6 02:40 Triage completed. as6 02:51 Basic Metabolic Panel Sent. jw7 02:51 CBC with Diff Sent. jw7 02:51 Magnesium Sent. jw7 02:51 Troponin HS Sent. jw7 02:51 TSH Sent. jw7 02:54 Placed in gown. Bed in low position. Call light in reach. Side rails up X 1. as6 03:05 XRAY Chest (1 view) In Process Unspecified. EDMS 03:38 Ronaldo Odom MD is Referral Physician. rt 03:51 Provided Education on: discharge teaching, need for follow up. as6 03:52 No provider procedures requiring assistance completed. IV discontinued, intact, as6 bleeding controlled, No redness/swelling at site. Pressure dressing applied. Administered Medications: 02:42 Drug: NS 0.9% IV 1000 ml Route: IV; Rate: 1 bolus; Site: right antecubital; as6 03:50 Follow up: Response: No adverse reaction; Cardiac rhythm changed; IV Status: Completed as6 infusion; IV Intake: 1000ml 02:42 Drug: Adenocard IVP 6 mg Route: IVP; Site: right antecubital; as6 03:51 Follow up: Response: No adverse reaction as6 Medication: 02:54 VIS not applicable for this client. as6 Intake: 03:50 IV: 1000ml; Total: 1000ml. as6 Outcome: 03:39 Discharge ordered by . rt 03:51 Discharged to home ambulatory, with significant other. as6 03:51 Condition: stable 03:51 Discharge instructions given to patient, Instructed on discharge instructions, follow up and referral plans. Demonstrated understanding of instructions, follow-up care. 03:52 Patient left the ED. as6 Signatures: Dispatcher [employer] Shauna Owens Ashby, RN RN as6 Britni Salguero RN RN jw7 Kishore Weller MD MD rt
--- NOTE | 2023-03-10 03:40 | EDPHYS ---
Physician Documentation [facility] Name: Bryce Alegria Age: 72 yrs Sex: Male : 1950 Arrival Date: 03/10/2023 Time: 02:26 Bed 4 Private MD: ED Physician Kishore Weller HPI: 03/10 05:38 This 72 yrs old Male presents to ER via Ambulatory with complaints of Chest discomfort. rt 05:38 Patient with history of SVT presents to the ED with palpitations consistent with prior rt episodes of SVT. Denies inciting factors. Other than palpitations with pressure, denies other acute complaints at this time. Symptoms are moderate severity, no other aggravating or alleviating factors.. Historical: - Allergies: 02:40 NKDA; as6 - PMHx: 02:40 colon cancer; Hypertensive disorder; rectal cancer; SVT; as6 - PSHx: 02:40 Colectomy; ileostomy bag; as6 - Immunization history:: Client reports receiving the 2nd dose of the Covid vaccine, [employer]. - Social history:: Smoking status: Patient denies any tobacco usage or history of. - Family history:: not pertinent. ROS: 05:38 Constitutional: Negative for fever, chills, and weight loss, Respiratory: Negative for rt shortness of breath, cough, wheezing, and pleuritic chest pain, Abdomen/GI: Negative for abdominal pain, nausea, vomiting, diarrhea, and constipation, MS/Extremity: Negative for injury and deformity, Skin: Negative for injury, rash, and discoloration, Neuro: Negative for headache, weakness, numbness, tingling, and seizure, Psych: Negative for depression, anxiety, suicide ideation, homicidal ideation, and hallucinations. 05:38 Cardiovascular: Positive for palpitations, Negative for chest pain. Exam: 05:38 Constitutional: This is a well developed, well nourished patient who is awake, alert, rt and in no acute distress. Head/Face: Normocephalic, atraumatic. Chest/axilla: Normal chest wall appearance and motion. Nontender with no deformity. No lesions are appreciated. Respiratory: Lungs have equal breath sounds bilaterally, clear to auscultation and percussion. No rales, rhonchi or wheezes noted. No increased work of breathing, no retractions or nasal flaring. Abdomen/GI: Soft, non-tender, with normal bowel sounds. No distension or tympany. No guarding or rebound. No evidence of tenderness throughout. Skin: Warm, dry with normal turgor. Normal color with no rashes, no lesions, and no evidence of cellulitis. MS/ Extremity: Pulses equal, no cyanosis. Neurovascular intact. Full, normal range of motion. Neuro: Awake and alert, GCS 15, oriented to person, place, time, and situation. Cranial nerves II-XII grossly intact. Motor strength 5/5 in all extremities. Sensory grossly intact. Cerebellar exam normal. Normal gait. Psych: Awake, alert, with orientation to person, place and time. Behavior, mood, and affect are within normal limits. 05:38 Cardiovascular: Tachycardic, regular rhythm. 05:38 ECG was reviewed by the Attending Physician. Vital Signs: 02:39 BP 119 / 94; Pulse 170; Resp 21 S; Temp 97.9(TE); Pulse Ox 99% on R/A; Weight 79.38 kg as6 (R); Height 5 ft. 11 in. (R); Pain 3/10; 02:52 BP 130 / 80; Pulse 70; Resp 18 S; Pulse Ox 99% on R/A; as6 03:36 BP 121 / 83; Pulse 66; Resp 21 S; Pulse Ox 99% on R/A; as6 02:39 Body Mass Index 24.41 (79.38 kg, 180.34 cm) as6 02:39 Pain Scale: Adult as6 Procedures: 05:38 Cardioversion: rt MDM: 02:37 Patient medically screened. rt 05:38 Differential diagnosis: SVT, A-fib, a flutter. Data reviewed: vital signs, nurses rt notes, lab test result(s), EKG, radiologic studies. Consideration of Admission/Observation Escalation of care including admission/observation considered. Patient with resolution of SVT following 1 dose of adenosine, symptoms have resolved. Labs are benign. Patient observed for time in the ED without recurrence, is comfortable discharge, will follow-up with dsp engineer. I considered the following discharge prescriptions or medication management in the emergency department Medications were administered in the Emergency Department. See MAR. Independent interpretation of the following test(s) in the Emergency Department X-Ray: My interpretation is No consolidation seen on interpretation of the x-ray images. Care significantly affected by the following chronic conditions: Hypertension. Counseling: I had a detailed discussion with the patient and/or guardian regarding the historical points, exam findings, and any diagnostic results supporting the discharge/admit diagnosis, lab results, radiology results, the need for outpatient follow up. Response to treatment: the patient's symptoms have resolved after treatment, the patient is not tachycardic. 03/10 02:44 Order name: Basic Metabolic Panel; Complete Time: 03:24 kd3 03/10 02:44 Order name: CBC with Diff; Complete Time: 03:24 kd3 03/10 02:44 Order name: Magnesium; Complete Time: 03:24 kd3 03/10 02:44 Order name: Troponin HS; Complete Time: 03:24 kd3 03/10 02:44 Order name: TSH; Complete Time: 03:24 kd3 03/10 02:44 Order name: XRAY Chest (1 view) 03/10 02:44 Order name: EKG; Complete Time: 02:45 03/10 02:44 Order name: Cardiac monitoring; Complete Time: 02:44 kd3 03/10 02:44 Order name: EKG - Nurse/Tech; Complete Time: 02:44 kd3 03/10 02:44 Order name: IV Saline Lock; Complete Time: 02:44 kd3 03/10 02:44 Order name: Labs collected and sent; Complete Time: 02:44 kd3 03/10 02:44 Order name: O2 Per Protocol; Complete Time: 02:44 kd3 03/10 02:44 Order name: O2 Sat Monitoring; Complete Time: 02:44 kd3 EC:38 Rate is 173 beats/min. Rhythm is regular, SVT with No ectopy, Rate related ST and T rt wave changes. QRS [place] is Normal. QRS interval is normal. QT interval is normal. No Q waves. Administered Medications: 02:42 Drug: NS 0.9% IV 1000 ml Route: IV; Rate: 1 bolus; Site: right antecubital; as6 03:50 Follow up: Response: No adverse reaction; Cardiac rhythm changed; IV Status: Completed as6 infusion; IV Intake: 1000ml 02:42 Drug: Adenocard IVP 6 mg Route: IVP; Site: right antecubital; as6 03:51 Follow up: Response: No adverse reaction as6 Disposition Summary: 03/10/23 03:39 Discharge Ordered Location: Home rt Problem: an acute exacerbation rt Symptoms: are resolved rt Condition: Stable rt Diagnosis - Supraventricular tachycardia rt Followup: rt - With: Ronaldo Odom MD - When: 1 - 2 days - Reason: Discharge Instructions: - Discharge Summary Sheet rt - Chemical Cardioversion rt - Supraventricular Tachycardia, Adult rt Forms: - Medication Reconciliation Form rt - Thank You Letter rt - Antibiotic Education rt - Prescription Opioid Use rt - Patient Portal Instructions rt - Leadership Thank You Letter rt Signatures: Dispatcher [employer] Eliseo Mills RN RN as6 Diana Arroyo RN RN kd3 Kishore Weller MD MD rt
[2023-03-10 04:16] VITALS: TEMP 97.9; O2SAT 99
[2023-03-10 04:19] VITALS: BP 121/83
--- NOTE | 2023-03-10 13:19 | RAD REPORT ---
EXAM DESCRIPTION: RAD - Chest Single View - 03/10/2023 3:03 am CLINICAL HISTORY: 72 years Male CHEST PAIN COMPARISON: None FINDINGS: Lung volumes adequate. Cardiac silhouette is normal in size. No pneumothorax. No large pleural effusion. No focal consolidation. No acute bony finding. IMPRESSION: No acute cardiopulmonary findings. Electronically signed by: Oracio Ceballos MD 03/10/2023 3:16 AM CDT Due to temporary technical issues with the PACS/Fluency reporting system, reports are being signed by the in house radiologist without review as a courtesy to ensure prompt reporting. The interpreting r adiologist is fully responsible for the content of the report.
--- NOTE | 2023-03-11 15:53 | EKG ---
Test Date: 2023-03-10 Test Time: 02:36:39 Armoring Machine Operator: BEATRIZ MEASUREMENT RESULTS: Intervals: Rate: 173 UT: QRSD: 94 QT: 268 QTc: 454 Williamson: P: UT: QRS: 48 T: 54 INTERPRETIVE STATEMENTS: Supraventricular tachycardia Marked ST abnormality, possible inferior subendocardial injury Abnormal ECG Compared to ECG 11/04/2022 01:45:00 ST (T wave) deviation now present Sinus rhythm no longer present Electronically Signed On 03-11-23 15:52:24 CDT by Ronaldo Odom
== END 2023-03-10 03:52 | disposition home or self-care (01) ==
LOC: ER 02:26
DX: I47.1 Supraventricular tachycardia (principal); I10 Essential (primary) hypertension; Z85.038 Personal history of other malignant neoplasm of large intestine
CPT/HCPCS: 92960; 96361; 93005; 85025; 80048; 36415; 83735; 84443; 84484; 71045; 96374; 99285; J0153; J7030

== ENCOUNTER 2024-11-29 19:23 | Observation (INO) | payer OTHER ==
[2024-11-29] MEDS ORDERED: ADENOSINE 6 MG/ 2ML VIAL IV ONE (19:52)
[2024-11-29] MEDS ORDERED: NA CHLORIDE 0.9% 1,000 ML ONE ×2 (19:53→23:44)
[2024-11-29] MEDS ORDERED: METOPROLOL TARTRATE 5 MG/5 ML INJ IV ONE (20:04)
[2024-11-29] MEDS ORDERED: ONDANSETRON 4 MG/2 ML VIAL ONE (20:04)
[2024-11-29] MEDS: DILTIAZEM HCL 60 MG TAB ONE ×2 (20:36→23:49)
[2024-11-29 20:40] LABS: PT Prothrombin Time 12.2 SECONDS (10-13.0); Protime INR 1.07
[2024-11-29 20:53] LABS: Albumin 3.9 g/dL (3.4-5.0); Albumin/Globulin Ratio 1.1 (1.1-1.8); Anion Gap 11.7 mEq/L (5.0-15.0); Bilirubin Direct 0.2 mg/dL (0-0.2); Bilirubin Indirect, Calculated 0.7 mg/dL (0.2-0.8); Bilirubin Total 0.9 mg/dL (0.2-1.0); Globulin 3.6 g/dL (2.3-3.5); Magnesium 2.1 mg/dL (1.6-2.4); Potassium 3.7 mEq/L (3.5-5.1); Protein, Total 7.5 g/dL (6.4-8.2); Troponin High Sensitivity 18.2 pg/mL (<58.9)
[2024-11-29 21:13] LABS: Absolute Eosinophils 0.2 K/uL (0-0.5); Absolute Lymphocytes (CBC) 1.8 K/uL (0.7-4.9); Absolute Monocytes 0.4 K/uL (0.1-1.3); Absolute Neutrophil 3.4 K/uL (1.8-8.0); Basophils % 0.7 % (0-1.3); Eosinophils % 2.8 % (0-4.4); Hematocrit 44.4 % (39.6-49.0); Lymphocytes % 30.6 % (15.3-44.8); MCH 32.7 pg (27.0-35.0); MCHC 36.1 g/dL (32.0-36.0); MCV 90.7 fL (80-100); MPV 10.9 fL (7.6-11.3); Monocytes % 7.2 % (3.3-12.3); Neutrophils % 58.7 % (41.7-73.7); Nucleated Red Blood Cells % 0.2 % (0-0); Platelets 128 thou/uL (152-406); Red Cell Distribution Width 13.9 % (12.1-15.2)
--- NOTE | 2024-11-29 22:21 | ER ---
Nurse's Notes [facility] Name: Bryce Alegria Age: 74 yrs Sex: Male : 1950 Arrival Date: 11/29/2024 Time: 19:23 Bed 16 Private MD: Diagnosis: Supraventricular tachycardia;Chest pain, unspecified Presentation: 11/29 19:38 Chief complaint: Patient states: CHEST TIGHTNESS, RAPID HEART RATE AND SOB THAT STARTED dd2 ABOUT 1.5 HOURS AGO. Coronavirus screen: At this time, the client does not indicate any symptoms associated with coronavirus-19. Ebola Screen: No symptoms or risks identified at this time. 19:38 Method Of Arrival: Ambulatory dd2 19:38 Initial Sepsis Screen: Does the patient meet any 2 criteria? No. Patient's initial dd2 sepsis screen is negative. Does the patient have a suspected source of infection? No. Patient's initial sepsis screen is negative. Risk Assessment: Do you want to hurt yourself or someone else? Patient reports no desire to harm self or others. Onset of symptoms was November 29, 2024. 19:38 Acuity: DOUGIE 2 dd2 Triage Assessment: 19:40 General: Appears in no apparent distress. comfortable, Behavior is calm, cooperative, dd2 appropriate for age. Pain: Denies pain. EENT: No deficits noted. No signs and/or symptoms were reported regarding the EENT system. Neuro: No deficits noted. Level of Consciousness is awake, alert, obeys commands, Oriented to person, place, time, situation, Appropriate for age. Cardiovascular: Reports shortness of breath, CHEST TIGHTNESS, RAPID HEART RATE Patient's skin is warm and dry. Rhythm is SVT. Respiratory: Reports shortness of breath at rest on exertion Airway is patent Respiratory effort is even, unlabored, Respiratory pattern is regular, symmetrical. GI: No deficits noted. No signs and/or symptoms were reported involving the gastrointestinal system. : No deficits noted. No signs and/or symptoms were reported regarding the genitourinary system. Derm: No deficits noted. No signs and/or symptoms reported regarding the dermatologic system. Musculoskeletal: No deficits noted. No signs and/or symptoms reported regarding the musculoskeletal system. Circulation, motion, and sensation intact. Range of motion: intact in all extremities. Historical: - Allergies: 19:40 NKDA; dd2 - PMHx: 19:40 colon cancer; Hypertensive disorder; rectal cancer; SVT; dd2 - PSHx: 19:40 Colectomy; ileostomy bag; dd2 - Immunization history:: Adult Immunizations up to date. - Infectious Disease History:: Denies. - Social history:: Smoking status: Patient denies any tobacco usage or history of. - Family history:: not pertinent. Screenin:12 [facility] ED Fall Risk Assessment (Adult) History of falling in the last 3 months, kd3 including since admission No falls in past 3 months (0 pts) Confusion or Disorientation No (0 pts) Intoxicated or Sedated No (0 pts) Impaired Gait No (0 pts) Mobility Assist Device Used No (0 pt) Altered Elimination No (0 pt) Score/Fall Risk Level 0 - 2 = Low Risk Oriented to surroundings. Abuse screen: Denies threats or abuse. Denies injuries from another. Nutritional screening: No deficits noted. Tuberculosis screening: No symptoms or risk factors identified. Assessment: 19:42 General: Pt is independently ambulatory to the exam room from triage. PT is tachy in kd3 the 150's. Pt reports some chest discomfort. Pt has had a recent ablation. EKG performed by this RN at the bedside. Pt is alert and oriented x 4. other VSS. . Pain: Denies pain. 20:12 General: Adenosine administration performed with provider at the bedside. PT on kd3 continuous monitoring. Pt has converted to NSR rate of 72. no adverse reactions. . 11/30 01:01 Pain: Pain does not radiate. Pain began suddenly. kd3 Vital Signs: 11/29 19:38 BP 122 / 93; Pulse 155; Resp 17; Pulse Ox 98% on R/A; Weight 79.38 kg; Height 5 ft. 11 dd2 in. ; Pain 0/10; 19:45 Temp 98.2(O); kd3 20:11 BP 136 / 77; Pulse 72; Resp 19; Pulse Ox 100% on 4 lpm NC; kd3 20:56 BP 123 / 95; Pulse 64; Resp 19; Pulse Ox 100% on R/A; kd3 11/30 01:01 BP 128 / 66; Pulse 54; Resp 16; Pulse Ox 100% on R/A; kd3 11/29 19:38 Body Mass Index 24.41 (79.38 kg, 180.34 cm) dd2 11/29 19:38 Pain Scale: Adult dd2 [place] Coma Score: 11/29 22:10 Eye Response: spontaneous(4). Motor Response: obeys commands(6). Verbal Response: sp4 oriented(5). Total: 15. ED Course: 19:25 Patient arrived in ED. mr 19:39 Triage completed. dd2 19:40 Arm band placed on right wrist. EKG completed in triage. Results shown to MD. dd2 19:42 Diana Arroyo, RN is Primary Nurse. kd3 19:49 Inserted saline lock: 20 gauge in right antecubital area, using aseptic technique. dd2 Blood collected. Flushed with 10 mL NS. 19:54 Brian Mancilla MD is Attending Physician. sp4 20:10 Troponin HS Sent. kd3 20:10 PT-INR Sent. kd3 20:10 NT PRO-BNP Sent. kd3 20:10 Magnesium Sent. kd3 20:10 LFT's Sent. kd3 20:10 CBC with Diff Sent. kd3 20:10 Basic Metabolic Panel Sent. kd3 22:20 [place] MD is Hospitalizing Provider. sp4 11/30 01:00 Patient has correct armband on for positive identification. Provided Education on: kd3 medications. Client placed on continuous cardiac and pulse oximetry monitoring. NIBP monitoring applied. bus monitor on. 01:00 No provider procedures requiring assistance completed. Patient admitted, IV remains in kd3 place. Patient maintains SpO2 saturation greater than 95% on room air. 11:03 IV discontinued, intact, bleeding controlled, No redness/swelling at site. Pressure me1 dressing applied. Administered Medications: 11/29 20:11 Drug: Ondansetron IVP 8 mg IVP once; over 2 minutes Route: IVP; Site: right antecubital;kd3 11/30 06:14 Follow up: Response: No adverse reaction; Nausea is decreased al5 11/29 20:11 Drug: Adenocard IVP 12 mg IVP once Route: IVP; Site: right antecubital; kd3 11/30 06:14 Follow up: Response: No adverse reaction; Cardiac rhythm changed al5 11/29 20:11 Drug: NS 0.9% IV 1000 ml IV at 1 bolus Per protocol; to be given as a bolus over 60 kd3 minutes Route: IV; Rate: 1 bolus; Site: right antecubital; 11/30 06:13 Follow up: Response: No adverse reaction; IV Status: Completed infusion; IV Intake: al5 1000ml 11/29 20:11 Drug: Metoprolol IVP 5 mg IVP once; Hold for SBP <100 or HR <60. Route: IVP; Site: 3 right antecubital; 11/30 06:14 Follow up: Response: No adverse reaction; Cardiac rhythm changed al5 11/29 20:56 Drug: Diltiazem PO 60 mg PO once Route: PO; kd3 11/30 06:13 Follow up: Response: No adverse reaction; Marked relief of symptoms al5 Medication: 01:01 VIS not applicable for this client. kd3 Intake: 06:13 IV: 1000ml; Total: 1000ml. al5 Outcome: 11/29 22:21 Decision to Hospitalize by Provider. sp4 11/30 01:00 Admitted to ER Hold. Please see [facility] for further documentation. kd3 Condition: stable Discharge instructions given to patient, Instructed on the need for admit, 11:03 Discharged to home ambulatory, with significant other, me1 11:03 Condition: stable 11:03 Discharge instructions given to patient, Instructed on discharge instructions, follow up and referral plans. medication usage, Demonstrated understanding of instructions, follow-up care, medications, Prescriptions given X 1, 11:04 Patient left the ED. me1 Signatures: Lexy Avila, Juancarlos Bauer mr Diana Arroyo RN RN kd3 Brian Mancilla MD MD sp4 Lin Salazar RN RN me1 Ashlee Ho RN RN al5 JANETH SMITH RN RN dd2 Corrections: (The following items were deleted from the chart) 06:15 06:13 Response: No adverse reaction al5 al5
--- NOTE | 2024-11-29 22:21 | EDPHYS ---
Physician Documentation [facility] Name: Bryce Alegria Age: 74 yrs Sex: Male : 1950 Arrival Date: 11/29/2024 Time: 19:23 Bed 16 Private MD: ED Physician Brian Mancilla HPI: 11/29 19:55 This 74 yrs old Male presents to ER via Ambulatory with complaints of Chest sp4 Tightness, Fast heart beat. 22:10 74-year-old male with prior history of SVT and ablation in 2018 presents with acute sp4 palpitations chest discomfort. On presentation patient has narrow complex tachycardia at rate 157. In the past patient took metoprolol 25 mg twice daily but at this time he is not on any medication.. Historical: - Allergies: 19:40 NKDA; dd2 - PMHx: 19:40 colon cancer; Hypertensive disorder; rectal cancer; SVT; dd2 - PSHx: 19:40 Colectomy; ileostomy bag; dd2 - Immunization history:: Adult Immunizations up to date. - Infectious Disease History:: Denies. - Social history:: Smoking status: Patient denies any tobacco usage or history of. - Family history:: not pertinent. ROS: 22:10 Constitutional: Negative for fever, chills, and weight loss, positive for palpitations sp4 positive for elevated heart rate positive for chest tightness 22:10 All other systems are negative, Exam: 22:10 Constitutional: This is a well developed, well nourished patient who is awake, alert, sp4 and in no acute distress. There is ileostomy left lower abdominal quadrant Head/Face: Normocephalic, atraumatic. Eyes: Pupils equal round and reactive to light, extra-ocular motions intact. Lids and lashes normal. Conjunctiva and sclera are not injected. Cornea within normal limits. Periorbital areas with no swelling, redness, or edema. ENT: Nares patent. No nasal discharge, no septal abnormalities noted. Tympanic membranes are normal and external auditory canals are clear. Oropharynx with no redness, swelling, or masses, exudates, or evidence of obstruction, uvula midline. Mucous membranes moist. Neck: Trachea midline, no thyromegaly or masses palpated, and no cervical lymphadenopathy. Supple, full range of motion without nuchal rigidity, or vertebral point tenderness. Chest/axilla: Normal chest wall appearance and motion. Nontender with no deformity. No lesions are appreciated. Cardiovascular: Rapid tachycardia, narrow complex tachycardia on the monitor. No gallops, murmurs, or rubs. Normal PMI, no JVD. No pulse deficits. Respiratory: Lungs have equal breath sounds bilaterally, clear to auscultation and percussion. No rales, rhonchi or wheezes noted. No increased work of breathing, no retractions or nasal flaring. Abdomen/GI: Soft, with normal bowel sounds. No distension or tympany. No guarding or rebound. No evidence of tenderness throughout. Back: No spinal tenderness. No costovertebral tenderness. Skin: Warm, dry with normal turgor. Normal color with no rashes, no lesions, and no evidence of cellulitis. MS/ Extremity: Pulses equal, no cyanosis. Neurovascular intact. Full, normal range of motion. Neuro: Awake and alert, GCS 15, oriented to person, place, time, and situation. Cranial nerves II-XII grossly intact. Motor strength 5/5 in all extremities. Sensory grossly intact. Psych: Awake, alert, with orientation to person, place and time. Behavior, mood, and affect are within normal limits 22:10 ECG was reviewed by the Attending Physician. Initial EKG 193 supraventricular tachycardia rate 155 Vital Signs: 19:38 BP 122 / 93; Pulse 155; Resp 17; Pulse Ox 98% on R/A; Weight 79.38 kg; Height 5 ft. 11 dd2 in. ; Pain 0/10; 19:45 Temp 98.2(O); kd3 20:11 BP 136 / 77; Pulse 72; Resp 19; Pulse Ox 100% on 4 lpm NC; kd3 20:56 BP 123 / 95; Pulse 64; Resp 19; Pulse Ox 100% on R/A; kd3 11/30 01:01 BP 128 / 66; Pulse 54; Resp 16; Pulse Ox 100% on R/A; kd3 11/29 19:38 Body Mass Index 24.41 (79.38 kg, 180.34 cm) dd2 11/29 19:38 Pain Scale: Adult dd2 Yary Coma Score: 11/29 22:10 Eye Response: spontaneous(4). Motor Response: obeys commands(6). Verbal Response: sp4 oriented(5). Total: 15. Procedures: 22:15 Cardioversion: for treatment of SVT, the patient tolerated the procedure well, sp4 Adenosine administered 12 mg successfully converted patient from SVT to sinus rhythm. After that metoprolol 5 mg IV was administered.. MDM: 19:55 Medical Screening Exam initiated sp4 22:21 Differential diagnosis: acute myocardial infarction, acute pericarditis, anxiety, sp4 coronary artery disease chest wall pain, congestive heart failure esophagitis, gastritis. HEART Score: History: Moderately Suspicious (1), ECG: Normal (0), Age: > or = 65 years (2), Risk Factors: 1 or 2 risk factors (1), Troponin: < or = 1 x Normal Limit (0), Total Score = 4. The patient was given aspirin in the Emergency Department. Data reviewed: vital signs, nurses notes, lab test result(s), EKG. Consideration of Admission/Observation Patient was admitted/placed on observation. Escalation of care including admission/observation considered. Management of patient was discussed with the following: Hospitalist: Fam JIMENEZ . Salesperson [employer]: Cardiology Dr. Yoo . 11/29 19:54 Order name: Basic Metabolic Panel; Complete Time: 21:13 4 11/29 19:54 Order name: CBC with Diff; Complete Time: 22:05 4 11/29 19:54 Order name: LFT's; Complete Time: 21:13 sp4 11/29 19:54 Order name: Magnesium; Complete Time: 21:13 4 11/29 19:54 Order name: NT PRO-BNP; Complete Time: 21:13 4 11/29 19:54 Order name: PT-INR; Complete Time: 21:13 sp4 11/29 19:54 Order name: Troponin HS; Complete Time: 21:13 4 11/29 23:22 Order name: Comprehensive Metabolic Panel EDMS 11/29 23:22 Order name: Comprehensive Metabolic Panel EDMS 11/29 23:22 Order name: Magnesium EDMS 11/29 23:22 Order name: Magnesium EDMS 11/29 19:54 Order name: Cardiac monitoring; Complete Time: 20:11 4 11/29 19:54 Order name: EKG - Nurse/Tech; Complete Time: 20:11 4 11/29 19:54 Order name: IV Saline Lock; Complete Time: 20:11 sp4 11/29 19:54 Order name: Labs collected and sent; Complete Time: 20: sp4 11/29 19:54 Order name: O2 Per Protocol; Complete Time: 20: sp4 11/29 19:54 Order name: O2 Sat Monitoring; Complete Time: 20:10 sp4 EC:38 Rate is 155 beats/min. Rhythm is regular, SVT. QRS [place] is Normal. QRS interval is sp4 normal. T waves are Normal. No ST changes noted. Clinical impression: SVT. Interpreted by me. Reviewed by me. Administered Medications: 20:11 Drug: Ondansetron IVP 8 mg IVP once; over 2 minutes Route: IVP; Site: right antecubital;3 11/30 06:14 Follow up: Response: No adverse reaction; Nausea is decreased al5 11/29 20:11 Drug: Adenocard IVP 12 mg IVP once Route: IVP; Site: right antecubital; 3 11/30 06:14 Follow up: Response: No adverse reaction; Cardiac rhythm changed al5 11/29 20:11 Drug: NS 0.9% IV 1000 ml IV at 1 bolus Per protocol; to be given as a bolus over 60 kd3 minutes Route: IV; Rate: 1 bolus; Site: right antecubital; 11/30 06:13 Follow up: Response: No adverse reaction; IV Status: Completed infusion; IV Intake: al5 1000ml 11/29 20:11 Drug: Metoprolol IVP 5 mg IVP once; Hold for SBP <100 or HR <60. Route: IVP; Site: [facility] right antecubital; 11/30 06:14 Follow up: Response: No adverse reaction; Cardiac rhythm changed al5 11/29 20:56 Drug: Diltiazem PO 60 mg PO once Route: PO; 3 11/30 06:13 Follow up: Response: No adverse reaction; Marked relief of symptoms al5 Disposition Summary: 11/29/24 22:21 Hospitalization Ordered Notes: Hospitalization Status: Observation sp4 Provider: [place] sp4 Condition: Stable sp4 Problem: new sp4 Symptoms: have improved sp4 Bed/Room Type: Standard sp4 Location: [facility] ER HOLD(11/29/24 22:22) vk Room Assignment: ERHOLD-(11/29/24 22:22) vk Diagnosis - Supraventricular tachycardia sp4 - Chest pain, unspecified sp4 Forms: - Medication Reconciliation Form sp4 - SBAR form sp4 - Leadership Thank You Letter sp4 Signatures: Dispatcher [employer] EDMS Diana Arroyo, RN RN kd3 Brian Mancilla MD MD sp4 Trudi Rivas DIANA, RN RN dd2 Ashlee Ho RN al5 Corrections: (The following items were deleted from the chart) 11/29 19:55 19:55 BASIC METABOLIC PANEL+C.LAB.BRZ ordered. EDMS EDMS 19:55 19:55 CBC+H.LAB.BRZ ordered. EDMS EDMS 19:55 19:55 HEPATIC FUNCTION+C.LAB.BRZ ordered. EDMS EDMS 19:55 19:55 MAGNESIUM+C.LAB.BRZ ordered. EDMS EDMS 19:55 19:55 PROBNP+C.LAB.BRZ ordered. EDMS EDMS 19:55 19:55 PROTIME (+INR)+COAG.LAB.BRZ ordered. EDMS EDMS 19:55 19:55 Troponin High Sensitivity+C.LAB.BRZ ordered. EDMS EDMS 22:22 22:21 Telemetry/MedSurg (observation) sp4 vk 22:22 22:21 sp4 vk
[2024-11-29] MEDS ORDERED: ACETAMINOPHEN 325 MG TABLET PO PRN (23:16)
--- NOTE | 2024-11-29 23:28 | P.HP ---
Certification for Inpatient Patient admitted to: Observation With expected LOS: <2 Midnights Patient will require the following post-hospital care: None Practitioner: I am a practitioner with admitting privileges, knowledge of patient current condition, hospital course, and medical plan of care. Services: Services provided to patient in accordance with Admission requirements found in Title 42 Section 412.3 of the Code of Federal Regulations Patient History Date of Service: 11/29/24 Reason for admission: SVT, PAUL. History of Present Illness: Patient is a pleasant 74-year-old male with past medical history of colorectal cancer, currently has an ileostomy, kidney stones, SVT, hypertension, brought to the ER today by EMS due to sudden onset of SVT. Patient states he was outside doing some yard work, states after finishing the yard work, he came into the house got a bottle of beer sat down and started eating, and suddenly felt his heart beating really fast, states when he checked on his heart rate it was 155, states he felt chest tightness secondary to the fast heartbeat and not cardiac related chest pain according to the patient. Patient states he also had mild shortness of breath due to the rapid heartbeat. Patient states several years back he was cardioverted with positive results and states it has been a long time that he has not had SVT. States this is the first time he had an SVT while he was eating. Patient received adenosine 12 mg IV, received Cardizem 60 mg p.o., with positive results. Patient is now back to sinus rhythm. Locator was consulted by ER doctor, who states patient should be admitted for observation, and to start on Cardizem 60 mg p.o. every 6 hours and will see patient tomorrow. During admission assessment, patient was fully awake, alert and oriented x 3, states he felt much better, denies of any palpitations, chest pain, shortness of breath, dizziness, nausea or vomiting, headaches. Patient and kids were in the room with the patient. Allergies No Known Allergies Allergy (Verified 11/21/14 14:01) Home Medications: Metoprolol Tartrate [Lopressor*] 25 mg PO BID 6AM 6PM 30 Days #60 tab 07/20/22 - Past Medical/Surgical History Diabetic: No -: colon rectal cancer -: Kidney stones. -: SVT. -: Essential hypertension. -: total colectomy with ileostomy placement -: tonsillectomy -: Kidney stone extraction - Family History Father -: Heart disease, Lung disease Mother -: Heart disease - Social History Smoking Status: Never smoker Alcohol use: Yes CD- Drugs: No Caffeine use: Yes Review of Systems 10-point ROS is otherwise unremarkable Cardiovascular: Other (SVT which is currently now resolved.) Physical Examination - Physical Exam General: Alert, In no apparent distress, Oriented x3, Cooperative HEENT: Atraumatic, Normocephalic, PERRLA, Mucous membr. moist/pink, Sclerae nonicteric Neck: Supple, 2+ carotid pulse no bruit, JVD not distended, No Thyromegaly, No LAD, Without JVD or thyroid abnormality Respiratory: Clear to auscultation bilaterally, Normal air movement Cardiovascular: No edema, Normal pulses, Regular rate/rhythm, Normal S1 S2, No gallops, No rubs, No murmurs Capillary refill: <2 Seconds Gastrointestinal: Normal bowel sounds, Soft and benign, Non-distended, W/out hepatomegaly, No ascites, No tenderness, No rebound Musculoskeletal: No clubbing, No swelling, No erythema, No tenderness, No warmth Integumentary: No breakdown, No significant lesion, No tenderness/swelling, No erythema, No warmth, No cyanosis Neurological: Normal gait, Normal speech, Normal strength at 5/5 x4 extr, Normal tone, Sensation intact, Cranial nerves 3-12 intact, Normal reflexes 2+, Normal affect Lymphatics: No axilla or inguinal lymphadenopathy External genitalia: No edema, No lesions, Non-tender Rectal: Normal - Studies Laboratory Data (last 24 hrs) 11/29/24 11/29/24 11/29/24 20:09 20:09 20:09 WBC 5.80 Hgb 16.0 Hct 44.4 Plt Count 128 L PT 12.2 INR 1.07 Sodium 140 Potassium 3.7 BUN 23 H Creatinine 1.80 H Glucose 120 H Magnesium 2.1 Total Bilirubin 0.9 AST 16 ALT 25 Alkaline Phosphatase 54 Male Exam - Male Exam Scrotum: Non-tender Testicular exam: Non-tender Assessment and Plan - Plan Patient is a pleasant 74-year-old male brought to ER today due to sudden SVT associated with mild chest tightness, and mild shortness of breath. Patient received adenosine 12 mg IV, and Cardizem 60 mg p.o. with positive results, patient rate now is in the 60's-70. Patient states his initial heart rate with the onset of SVT today at home was 155. (1) SVT. Patient initial heart rate at home according to the patient was 155 with SVT onset. According report received from ER doctor, he states he contacted communications program manager Dr. Zachary Yoo and instructed to start patient on Cardizem 60 mg p.o. every 6 hours. -Locator consulted as indicated above. -Telemetry. Cardizem 60 mg p.o. every 6 hours as recommended by communications program manager. (2)Acute kidney injury. Patient BUN 23, creatinine 1.80. Patient states he does not have any history of renal disease is aware of. He states he did not drink enough water today. -IV NS at 75 mL/ hr x 1 L. -Recheck CMP in the morning (3)Explained the entire treatment plan to the patient, , and kids present at bedside, solicit questions answered and voiced understanding. Discharge Plan: Home Plan to discharge in: 48 Hours - Advance Directives Does patient have a Living Will: Yes Does patient have a Durable POA for Healthcare: Yes - Code Status/Comfort Care Code Status Assessed: Yes Code Status: Full Code Critical Care: No Time Spent Managing Pts Care (In Minutes): 55
[2024-11-29] MEDS ORDERED: HEPARIN 5000 UNIT/ML 1 ML VIAL ONE (23:44)
[2024-11-29] MEDS: NA CHLORIDE 0.9% 1,000 ML IV SCH (23:45)
[2024-11-29 23:58] VITALS: BMI 24.4
[2024-11-30] MEDS: DILTIAZEM HCL 60 MG TAB PO SCH
[2024-11-30] MEDS: HEPARIN 5000 UNIT/ML 1 ML VIAL SQ SCH (00:22)
[2024-11-30 05:51] LABS: ALT/SGPT 20 U/L (16-61); Albumin 3.3 g/dL (3.4-5.0); Albumin/Globulin Ratio 1.1 (1.1-1.8); Alkaline Phosphatase 45 U/L (45-117); Anion Gap 9.7 mEq/L (5.0-15.0); BUN Blood Urea Nitrogen 17 mg/dL (7-18); Bicarbonate 24 mEq/L (21-32); Bilirubin Total 0.8 mg/dL (0.2-1.0); Globulin 3.1 g/dL (2.3-3.5); Glomerular Filtration Rate 55 ml/min (=/>90); Glucose Level 108 mg/dL (74-106); Potassium 3.7 mEq/L (3.5-5.1); Protein, Total 6.4 g/dL (6.4-8.2); Sodium Level 141 mEq/L (136-145)
[2024-11-30 05:52] LABS: AST/SGOT < 10 U/L (15-37)
[2024-11-30] MEDS ORDERED: HEPARIN 5000 UNIT/ML 1 ML VIAL ONE (08:22)
--- NOTE | 2024-11-30 10:26 | P.CNS ---
Date of Consult: 11/30/24 Chief Complaint: SVT, PAUL. History of Present Illness: Patient with PMH of SVT, Ablation in 2022, presented with palpitations after eating, he was found to be in SVT, denies any other cardiac symptoms, no chest pain, no SOB, no STEELE. Allergies No Known Allergies Allergy (Verified 11/21/14 14:01) Home medications list reviewed: Yes Home Medications: NK [No Home Meds] 11/30/24 - Past Medical/Surgical History Diabetic: No -: colon rectal cancer -: Kidney stones. -: SVT. -: Essential hypertension. -: total colectomy with ileostomy placement -: tonsillectomy -: Kidney stone extraction - Family History Father Medical History: Heart disease, Lung disease Mother Medical History: Heart disease - Social History Smoking Status: Never smoker Alcohol use: Yes CD- Drugs: No Caffeine use: Yes Review of Systems 10-point ROS is otherwise unremarkable Physical Examination Temp Pulse Resp BP Pulse Ox 97.8 F 55 16 123/73 98 11/30/24 08:00 11/30/24 08:00 11/30/24 08:00 11/30/24 08:00 11/30/24 08:00 General: Alert, In no apparent distress HEENT: Atraumatic, PERRLA, Mucous membr. moist/pink, EOMI, Sclerae nonicteric Neck: Supple, 2+ carotid pulse no bruit, No LAD, Without JVD or thyroid abnormality Respiratory: Clear to auscultation bilaterally, Normal air movement Cardiovascular: Regular rate/rhythm, Normal S1 S2 Gastrointestinal: Normal bowel sounds, No tenderness Musculoskeletal: No tenderness Integumentary: No rashes Neurological: Normal gait, Normal speech, Normal tone, Normal affect Lymphatics: No axilla or inguinal lymphadenopathy Laboratory Data (last 24 hrs) 11/29/24 11/29/24 11/29/24 20:09 20:09 20:09 WBC 5.80 Hgb 16.0 Hct 44.4 Plt Count 128 L PT 12.2 INR 1.07 Sodium 140 Potassium 3.7 BUN 23 H Creatinine 1.80 H Glucose 120 H Magnesium 2.1 Total Bilirubin 0.9 AST 16 ALT 25 Alkaline Phosphatase 54 - Problems (1) PAUL (acute kidney injury) Current Visit: Yes Status: Acute Plan: resolved, recommend hydration. (2) SVT (supraventricular tachycardia) Current Visit: No Status: Acute Plan: recurrnce as patient had an ablation done in 2022. responded to Adenosine recommend to start Diltazem CD 120 mg daily outpatient follow up with cardiology for event monitor (3) Hypertension Onset Date: 09/05/17 Current Visit: No Status: Chronic Plan: medications as above. Qualifiers: Hypertension type: essential hypertension Qualified Code(s): I10 - Essential (primary) hypertension
--- NOTE | 2024-11-30 10:35 | P.DS ---
Admission Date: 11/29/24 Discharge Date: 11/30/24 Disposition: ROUTINE DISCHARGE Discharge Condition: GOOD Reason for Admission: SVT, PAUL. Brief History of Present Illness: Patient is a pleasant 74-year-old male with past medical history of colorectal cancer, currently has an ileostomy, kidney stones, SVT, hypertension, brought to the ER today by EMS due to sudden onset of SVT. Patient states he was outside doing some yard work, states after finishing the yard work, he came into the house got a bottle of beer sat down and started eating, and suddenly felt his heart beating really fast, states when he checked on his heart rate it was 155, states he felt chest tightness secondary to the fast heartbeat and not cardiac related chest pain according to the patient. Patient states he also had mild shortness of breath due to the rapid heartbeat. Patient states several years back he was cardioverted with positive results and states it has been a long time that he has not had SVT. States this is the first time he had an SVT while he was eating. Patient received adenosine 12 mg IV, received Cardizem 60 mg p.o., with positive results. Patient is now back to sinus rhythm. Apparel Merchandiser was consulted by ER doctor, who states patient should be admitted for observation, and to start on Cardizem 60 mg p.o. every 6 hours and will see patient tomorrow. During admission assessment, patient was fully awake, alert and oriented x 3, states he felt much better, denies of any palpitations, chest pain, shortness of breath, dizziness, nausea or vomiting, headaches. Patient and kids were in the room with the patient. Hospital Course: (1) PAUL (acute kidney injury) (2) SVT (supraventricular tachycardia) (3) Hypertension Patient was admitted to the hospital for SVT. He has a history of previous ablations and episodes of SVT in the past. He was not on a daily medication to prevent this as he previously did not feel like taking his medications. He presented to the hospital in SVT and was given adenosine followed by p.o. diltiazem, he remained in sinus rhythm overnight and is doing well this morning. He also had a mild acute kidney injury, he was given IV fluids and this has improved as well. Patient was seen by cardiology this morning and is stable for discharge with outpatient follow-up in 1 week. He will be prescribed diltiazem 120 mg ER daily to begin taking to help reduce the risk of recurrence. He was counseled on reduced frequency/amounts of caffeine and alcohol. Vital Signs/Physical Exam: Temp Pulse Resp BP Pulse Ox 97.8 F 55 16 123/73 98 11/30/24 08:00 11/30/24 08:00 11/30/24 08:00 11/30/24 08:00 11/30/24 08:00 General: Alert, In no apparent distress, Oriented x3 HEENT: Atraumatic Neck: Supple Respiratory: Normal air movement Cardiovascular: No edema Gastrointestinal: Non-distended Musculoskeletal: No contractures Neurological: Normal speech, Normal affect Laboratory Data at Discharge: WBC 5.80 thou/uL (4.3-10.9) 11/29/24 20:09 Hgb 16.0 g/dL (13.6-17.9) 11/29/24 20:09 Hct 44.4 % (39.6-49.0) 11/29/24 20:09 Plt Count 128 thou/uL (152-406) L 11/29/24 20:09 PT 12.2 SECONDS (10-13.0) 11/29/24 20:09 INR 1.07 11/29/24 20:09 Sodium 141 mEq/L (136-145) 11/30/24 05:15 Potassium 3.7 mEq/L (3.5-5.1) 11/30/24 05:15 BUN 17 mg/dL (7-18) 11/30/24 05:15 Creatinine 1.37 mg/dL (0.70-1.30) H 11/30/24 05:15 Glucose 108 mg/dL (74-106) H 11/30/24 05:15 Magnesium 2.0 mg/dL (1.6-2.4) 11/30/24 05:15 Total Bilirubin 0.8 mg/dL (0.2-1.0) 11/30/24 05:15 AST < 10 U/L (15-37) L 11/30/24 05:15 ALT 20 U/L (16-61) 11/30/24 05:15 Alkaline Phosphatase 45 U/L (45-117) 11/30/24 05:15 Home Medications: dilTIAZem HCL [Diltiazem 24Hr ER] 120 mg PO DAILY #30 cap 11/30/24 New Medications: dilTIAZem HCL [Diltiazem 24Hr ER] 120 mg PO DAILY #30 cap Physician Discharge Instructions: Patient was admitted to the hospital for SVT. He has a history of previous abl ations and episodes of SVT in the past. He was not on a daily medication to prevent this as he previously did not feel like taking his medications. He presented to the hospital in SVT and was given adenosine followed by p.o. diltiazem, he remained in sinus rhythm overnight and is doing well this morning. He also had a mild acute kidney injury, he was given IV fluids and this has improved as well. Patient was seen by cardiology this morning and is stable for discharge with outpatient follow-up in 1 week. He will be prescribed diltiazem 120 mg ER daily to begin taking to help reduce the risk of recurrence. He was counseled on reduced frequency/amounts of caffeine and alcohol. Diet: Regular Activity: Ad lani Followup: [place] Jade MD [Primary Care Provider] - 1-2 Weeks Zachary Yoo MD [ACTIVE - CAN ADMIT] - 1 Week Time spent managing pt's care (in minutes): 46
[2024-11-30 10:51] VITALS: BP 124/72; TEMP 98.4
[2024-11-30 11:12] VITALS: O2SAT 100
--- NOTE | 2024-12-01 12:23 | EKG ---
Test Date: 2024-11-29 Test Time: 20:25:25 Conventions Assistant: AF MEASUREMENT RESULTS: Intervals: Rate: 65 [place]: 176 QRSD: 110 QT: 386 QTc: 401 [place]: P: 56 [place]: 176 QRS: 6 T: 19 INTERPRETIVE STATEMENTS: Normal sinus rhythm Normal ECG Compared to ECG 11/29/2024 19:38:35 Supraventricular tachycardia no longer present ST (T wave) deviation no longer present Electronically Signed On 12-01-24 12:21:02 CDT by Zachary Yoo
--- NOTE | 2024-12-01 12:24 | EKG ---
Test Date: 2024-11-29 Test Time: 19:38:35 Valve Grinder: BEATRIZ MEASUREMENT RESULTS: Intervals: Rate: 155 UT: QRSD: 112 QT: 290 QTc: 465 [place]: P: UT: QRS: -11 T: 56 INTERPRETIVE STATEMENTS: Supraventricular tachycardia Junctional ST depression, probably normal Borderline ECG Compared to ECG 03/10/2023 02:36:39 No significant changes Electronically Signed On 12-01-24 12:21:17 CDT by Zachary Yoo
== END 2024-11-30 10:52 | disposition home or self-care (01) ==
LOC: ER 19:23 → ERHOLD 23:11
PROVIDERS: ADMIT Internal Medicine; ATTEND Internal Medicine
DX: I47.10 Supraventricular tachycardia, unspecified (principal); N17.9 Acute kidney failure, unspecified; R07.9 Chest pain, unspecified; I10 Essential (primary) hypertension
CPT/HCPCS: 93005 ×2; 85025; 80048; 36415; 83735 ×2; 85610; 80076; 84484; 80053; 83880; J0153; J1644 ×2; J2405; J7030 ×2; G0378

== ENCOUNTER 2024-12-04 00:25 | Inpatient (IN) | payer OTHER ==
[2024-12-04] MEDS ORDERED: ASPIRIN 81 MG CHEWABLE TABLET ONE (01:10)
[2024-12-04 01:21] LABS: Absolute Eosinophils 0.1 K/uL (0-0.5); Absolute Lymphocytes (CBC) 1.4 K/uL (0.7-4.9); Absolute Monocytes 0.3 K/uL (0.1-1.3); Absolute Neutrophil 2.5 K/uL (1.8-8.0); Basophils % 0.5 % (0-1.3); Eosinophils % 2.7 % (0-4.4); Hematocrit 45.1 % (39.6-49.0); Hemoglobin 16.1 g/dL (13.6-17.9); Lymphocytes % 32.1 % (15.3-44.8); MCH 32.4 pg (27.0-35.0); MCHC 35.7 g/dL (32.0-36.0); MCV 90.7 fL (80-100); MPV 9.4 fL (7.6-11.3); Monocytes % 7.6 % (3.3-12.3); Neutrophils % 57.1 % (41.7-73.7); Nucleated Red Blood Cells % 0.3 % (0-0); Platelets 107 thou/uL (152-406); RBC Red Blood Cell Count 4.98 M/uL (4.33-5.43); Red Cell Distribution Width 13.8 % (12.1-15.2)
--- NOTE | 2024-12-04 02:11 | RAD REPORT ---
EXAM: XR Chest, 1 View CLINICAL HISTORY: CHEST PAIN TECHNIQUE: Frontal view of the chest. COMPARISON: XR Chest dated 03/10/2023 FINDINGS: Lungs: Unremarkable. No consolidation. Pleural space: Unremarkable. No pneumothorax. Heart: Unremarkable. No cardiomegaly. Mediastinum: Unremarkable. Normal mediastinal contour. Bones/joints: Multilevel spondylosis. No acute fracture. Vasculature: Thoracic aortic atherosclerosis. IMPRESSION: No acute disease. Electronically signed by: Rolf Dobbs MD 12/04/2024 02:06 AM CDT Transcribed Date/Time: 12/04/2024 2:10 AM
[2024-12-04 02:15] LABS: Albumin 3.8 g/dL (3.4-5.0); Albumin/Globulin Ratio 1.1 (1.1-1.8); Anion Gap 12.5 mEq/L (5.0-15.0); Bilirubin Direct 0.2 mg/dL (0-0.2); Bilirubin Indirect, Calculated 0.7 mg/dL (0.2-0.8); Bilirubin Total 0.9 mg/dL (0.2-1.0); Globulin 3.5 g/dL (2.3-3.5); Potassium 3.5 mEq/L (3.5-5.1); Protein, Total 7.3 g/dL (6.4-8.2); Troponin High Sensitivity 15.7 pg/mL (<58.9)
--- NOTE | 2024-12-04 02:45 | EDPHYS ---
Physician Documentation [facility] Name: Bryce Alegria Age: 74 yrs Sex: Male : 1950 Arrival Date: 12/04/2024 Time: 00:25 Bed 13 Private MD: ED Physician Villa Sullivan HPI: 12/04 01:45 This 74 yrs old Male presents to ER via Ambulatory with complaints of Chest Pain. ms3 01:45 74-year-old male with past medical history of hypertension, colon cancer, rectal ms3 cancer, SVT presents to the emergency department for palpitations that began prior to arrival. Patient states he was at home when his heart rate increased 145 he was able to curl up into a ball and the SVT stopped. Patient states he has been having intermittent episodes and was unable to control the second episode at home prompting him to come to the emergency department.. Historical: - Allergies: 00:47 NKDA; iw - PMHx: 00:47 Hypertensive disorder; colon cancer; rectal cancer; SVT; iw - PSHx: 00:47 ileostomy bag; Colectomy; iw - Immunization history:: Adult Immunizations up to date. - Infectious Disease History:: Denies. - Social history:: Smoking status: Patient denies any tobacco usage or history of. ROS: 01:45 Constitutional: Negative for fever, and chills. Respiratory: Negative for shortness of ms3 breath, cough, wheezing, and pleuritic chest pain, Abdomen/GI: Negative for abdominal pain, nausea, vomiting, diarrhea, and constipation, 01:45 MS/Extremity: Negative for injury and deformity, Skin: Negative for injury, rash, and discoloration, 01:45 Cardiovascular: Positive for palpitations, Exam: 01:45 Constitutional: This is a well developed, well nourished patient who is awake, alert, ms3 and in no acute distress. Respiratory: Lungs have equal breath sounds bilaterally, clear to auscultation and percussion. No rales, rhonchi or wheezes noted. No increased work of breathing, no retractions or nasal flaring. Abdomen/GI: Soft, non-tender, with normal bowel sounds. No distension or tympany. No guarding or rebound. No evidence of tenderness throughout. Skin: Warm, dry with normal turgor. Normal color with no rashes, no lesions, and no evidence of cellulitis. MS/ Extremity: Pulses equal, no cyanosis. Neurovascular intact. Full, normal range of motion. 01:45 Cardiovascular: Rate: tachycardic, Rhythm: regular, Pulses: no pulse deficits are ms3 appreciated, Heart sounds: normal, normal S1and S2, 01:45 ECG was reviewed by the Attending Physician. 02:31 ECG was reviewed by the Attending Physician. ms3 Vital Signs: 00:46 BP 104 / 67; Pulse 169; Resp 18; Pulse Ox 100% on R/A; iw 01:00 BP 127 / 84; Pulse 86; Resp 18; Pulse Ox 97% ; cp4 02:00 BP 135 / 80; Pulse 63; Resp 18; Pulse Ox 99% ; cp4 03:00 BP 120 / 86; Pulse 59; Resp 18; Pulse Ox 98% ; cp4 04:00 BP 134 / 77; Pulse 58; Resp 18; Pulse Ox 98% ; cp4 MDM: 00:45 Medical Screening Exam initiated ms3 01:45 Differential diagnosis: abnormal EKG, anxiety, SVT. ms3 03:12 Data reviewed: vital signs, nurses notes, lab test result(s), EKG, radiologic studies, ms3 and as a result, I will admit patient. Consideration of Admission/Observation Patient was admitted/placed on observation. Management of patient was discussed with the following: Hospitalist: Dr Eaton. Independent interpretation of the following test(s) in the Emergency Department EKG: See my EKG interpretation above. Counseling: I had a detailed discussion with the patient and/or guardian regarding the historical points, exam findings, and any diagnostic results supporting the discharge/admit diagnosis, lab results, radiology results, the need for further work-up and treatment in the hospital. ED course: Discussed observation and discharge with the patient. Patient states he has had multiple episodes of SVT that have come and gone through the night and does not feel comfortable going home at this time. Case was discussed with Dr. Eaton for observation.. 12/04 00:28 Order name: Basic Metabolic Panel; Complete Time: 02:30 ms3 12/04 00:28 Order name: CBC with Diff; Complete Time: 02:30 ms3 12/04 00:28 Order name: LFT's; Complete Time: 02:30 ms3 12/04 00:28 Order name: Magnesium; Complete Time: 02:30 ms3 12/04 00:29 Order name: NT PRO-BNP; Complete Time: 02:30 ms3 12/04 00:29 Order name: PT-INR ms3 12/04 00:29 Order name: Troponin HS; Complete Time: 02:30 ms3 12/04 03:53 Order name: CBC with Automated Diff EDMS 12/04 03:53 Order name: CBC with Automated Diff EDMS 12/04 03:53 Order name: Comprehensive Metabolic Panel EDMS 12/04 03:53 Order name: Comprehensive Metabolic Panel EDMS 12/04 03:53 Order name: Troponin High Sensitivity EDMS 12/04 03:53 Order name: Troponin High Sensitivity EDMS 12/04 03:53 Order name: Troponin High Sensitivity EDMS 12/04 03:53 Order name: Troponin High Sensitivity EDMS 12/04 08:05 Order name: Potassium EDMS 12/04 00:29 Order name: XRAY Chest (1 view) ms3 12/04 01:45 Order name: EKG; Complete Time: 01:45 ms3 12/04 00:29 Order name: Cardiac monitoring; Complete Time: 01:06 ms3 12/04 00:29 Order name: EKG - Nurse/Tech; Complete Time: 00:49 ms3 12/04 00:29 Order name: IV Saline Lock; Complete Time: 01:31 ms3 12/04 00:29 Order name: Labs collected and sent; Complete Time: 01:06 ms3 12/04 00:29 Order name: O2 Per Protocol; Complete Time: 01:06 ms3 12/04 00:29 Order name: O2 Sat Monitoring; Complete Time: 01:06 ms3 12/04 01:23 Order name: Misc. Order: RECOLLECT GREEN TOP; Complete Time: 01:31 rv1 EC:45 Rate is 162 beats/min. Rhythm is regular. QRS Percival is Normal. AK interval is normal. ms3 QRS interval is normal. Clinical impression: SVT. Interpreted by me. Reviewed by me. 02:31 Rate is 67 beats/min. Rhythm is regular. QRS Percival is Normal. AK interval is normal. QRS ms3 interval is normal. Clinical impression: NSR w/ Non-specific ST/T Changes. Interpreted by me. Reviewed by me. Administered Medications: 01:05 Not Given (Patient converted on ownn): [id number] mg IVP once cp4 01:12 Drug: Aspirin PO Chewable Tablet 324 mg PO once; 81 mg tablets x 4 Route: PO; cp4 17:10 Follow up: Response: No adverse reaction db Disposition Summary: 12/04/24 02:45 Hospitalization Ordered Notes: Hospitalization Status: Observation ms3 Provider: Reji Eaton ms3 Condition: Stable ms3 Problem: new ms3 Symptoms: are unchanged ms3 Bed/Room Type: Standard ms3 Location: Telemetry/MedSurg (observation)(12/04/24 15:53) eb Room Assignment: 220(12/04/24 15:53) eb Diagnosis - Supraventricular tachycardia ms3 Forms: - Medication Reconciliation Form ms3 - SBAR form ms3 - Leadership Thank You Letter ms3 Signatures: Dispatcher [employer] EDMS Garima Park RN RN iw Cristy Lawrence eb Villa Sullivan DO DO ms3 Iraida Finch rv1 Gila Biswas cp4 Daly Funes RN Corrections: (The following items were deleted from the chart) 00: 00:29 BASIC METABOLIC PANEL+C.LAB.BRZ ordered. EDNM EDNM 00: 00:29 CBC+H.LAB.BRZ ordered. [facility] 00: 00:29 HEPATIC FUNCTION+C.LAB.BRZ ordered. [facility] 00: 00:29 MAGNESIUM+C.LAB.BRZ ordered. [facility] 00: 00:29 PROBNP+C.LAB.BRZ ordered. [facility] 00: 00:29 PROTIME (+INR)+COAG.LAB.BRZ ordered. [facility] EDNM 00: 00:29 Troponin High Sensitivity+C.LAB.BRZ ordered. [facility] EDNM 00:29 00:29 Chest Single View+RAD.RAD.BRZ ordered. [facility] 01:47 01:45 Constitutional: This is a well developed, well nourished patient who is awake, ms3 alert, and in no acute distress. Cardiovascular: Regular rate and rhythm with a normal S1 and S2. No gallops, murmurs, or rubs. Normal PMI, no JVD. No pulse deficits. Respiratory: Lungs have equal breath sounds bilaterally, clear to auscultation and percussion. No rales, rhonchi or wheezes noted. No increased work of breathing, no retractions or nasal flaring. Abdomen/GI: Soft, non-tender, with normal bowel sounds. No distension or tympany. No guarding or rebound. No evidence of tenderness throughout. Skin: Warm, dry with normal turgor. Normal color with no rashes, no lesions, and no evidence of cellulitis. MS/ Extremity: Pulses equal, no cyanosis. Neurovascular intact. Full, normal range of motion. ms3 03:31 02:45 Telemetry/MedSurg (observation) ms3 rv1 03:31 02:45 ms3 rv1 15:53 03:31 [facility] ER HOLD rv1 eb 15:53 03:31 ERHOLD- rv1 eb
--- NOTE | 2024-12-04 02:45 | ER ---
Nurse's Notes [facility] Name: Bryce Alegria Age: 74 yrs Sex: Male : 1950 Arrival Date: 12/04/2024 Time: 00:25 Bed 13 Private MD: Diagnosis: Supraventricular tachycardia Presentation: 12/04 00:46 Chief complaint: Patient states: feels like he's in and out of svt since 10 pm. iw Coronavirus screen: At this time, the client does not indicate any symptoms associated with coronavirus-19. Ebola Screen: No symptoms or risks identified at this time. Initial Sepsis Screen: Does the patient meet any 2 criteria? No. Patient's initial sepsis screen is negative. Does the patient have a suspected source of infection? No. Patient's initial sepsis screen is negative. Risk Assessment: Do you want to hurt yourself or someone else? Patient reports no desire to harm self or others. Onset of symptoms was December 03, 2024. 00:46 Acuity: DOUGIE 2 iw 00:46 Method Of Arrival: Ambulatory iw Triage Assessment: 00:49 General: Appears in no apparent distress. Behavior is calm, cooperative. Pain: iw Complains of pain in chest Pain currently is 2 out of 10 on a pain scale. Cardiovascular: Patient's skin is warm and dry. Rhythm is SVT. Respiratory: Respiratory effort is even, unlabored, Respiratory pattern is regular. GI: Abdomen is non-distended, Ileostomy site Ostomy appliance is intact. Derm: Skin is intact, is healthy with good turgor. Musculoskeletal: Range of motion: intact in all extremities. Historical: - Allergies: 00:47 NKDA; iw - PMHx: 00:47 Hypertensive disorder; colon cancer; rectal cancer; SVT; iw - PSHx: 00:47 ileostomy bag; Colectomy; iw - Immunization history:: Adult Immunizations up to date. - Infectious Disease History:: Denies. - Social history:: Smoking status: Patient denies any tobacco usage or history of. Screenin:35 [facility] ED Fall Risk Assessment (Adult) History of falling in the last 3 months, cp4 including since admission No falls in past 3 months (0 pts) Confusion or Disorientation No (0 pts) Intoxicated or Sedated No (0 pts) Impaired Gait No (0 pts) Mobility Assist Device Used No (0 pt) Altered Elimination No (0 pt) Score/Fall Risk Level 0 - 2 = Low Risk Oriented to surroundings, Maintained a safe environment, Assessed \T\ reinforced patient's understanding of fall precautions, Hourly rounding (assess needs \T\ fall precautionary measures) done. Abuse screen: Denies threats or abuse. Denies injuries from another. Nutritional screening: No deficits noted. Tuberculosis screening: No symptoms or risk factors identified. Assessment: 04:34 General: Appears in no apparent distress. comfortable, Behavior is calm, cooperative, cp4 appropriate for age. Pain: Denies pain. Pain does not radiate. Pain began suddenly. Neuro: Level of Consciousness is awake, alert, obeys commands, Oriented to person, place, time, situation. Cardiovascular: Patient's skin is warm and dry. Cardiovascular: Rhythm is sinus rhythm. Respiratory: Airway is patent Respiratory effort is even, unlabored. GI: No signs and/or symptoms were reported involving the gastrointestinal system. : No signs and/or symptoms were reported regarding the genitourinary system. EENT: No signs and/or symptoms were reported regarding the EENT system. Derm: No signs and/or symptoms reported regarding the dermatologic system. Vital Signs: 00:46 BP 104 / 67; Pulse 169; Resp 18; Pulse Ox 100% on R/A; iw 01:00 BP 127 / 84; Pulse 86; Resp 18; Pulse Ox 97% ; cp4 02:00 BP 135 / 80; Pulse 63; Resp 18; Pulse Ox 99% ; cp4 03:00 BP 120 / 86; Pulse 59; Resp 18; Pulse Ox 98% ; cp4 04:00 BP 134 / 77; Pulse 58; Resp 18; Pulse Ox 98% ; cp4 ED Course: 00:26 Patient arrived in ED. im 00:28 Villa Sullivan DO is Attending Physician. ms3 00:47 Triage completed. iw 00:48 Gila Biswas is Primary Nurse. cp4 00:49 Arm band placed on. iw 00:50 EKG completed in triage. Results shown to MD. iw 01:18 XRAY Chest (1 view) In Process Unspecified. EDMS 01:20 Missed attempt(s): 22 gauge in right forearm. br2 01:33 Inserted saline lock: 22 gauge in left wrist, using aseptic technique. Blood collected. br2 Flushed with 10 mL NS. 01:46 Initial lab(s) drawn, by me, sent to lab. oh1 01:46 Urine collected: clean catch specimen, clear. oh1 01:46 Basic Metabolic Panel Sent. oh1 01:46 LFT's Sent. oh1 01:46 Magnesium Sent. oh1 01:46 NT PRO-BNP Sent. oh1 01:46 PT-INR Sent. oh1 01:47 Troponin HS Sent. oh1 02:45 Reji Eaton MD is Hospitalizing Provider. ms3 04:25 Placed in gown. Bed in low position. Call light in reach. Side rails up X2. Provided cp4 Education on: admission. Client placed on continuous cardiac and pulse oximetry monitoring. NIBP monitoring applied. teletypesetter monitor on. Pulse ox on. NIBP on. 04:25 No provider procedures requiring assistance completed. Patient admitted, IV remains in cp4 place. Patient maintains SpO2 saturation greater than 95% on room air. 11:19 Primary Nurse role handed off by Gila Biswas Administered Medications: 01:05 Not Given (Patient converted on ownn): [id number] mg IVP once cp4 01:12 Drug: Aspirin PO Chewable Tablet 324 mg PO once; 81 mg tablets x 4 Route: PO; cp4 17:10 Follow up: Response: No adverse reaction db Medication: 04:35 VIS not applicable for this client. cp4 Outcome: 02:45 Decision to Hospitalize by Provider. ms3 04:25 Admitted to ER Hold. Please see [facility] for further documentation. cp4 04:25 Condition: stable 04:25 Instructed on the need for admit, 17:11 Patient left the ED. db Signatures: Dispatcher [employer] EDMS Garima Park RN RN iw Lewis, Lynsay, RN RN ll1 Villa Sullivan DO DO ms3 Daly Funes RN Oneida Sarmiento Christina cp4 Brigitte Keen RN RN br2 Herminia Lara oh1
[2024-12-04] MEDS ORDERED: ACETAMINOPHEN 325 MG TABLET PO PRN (03:48)
[2024-12-04] MEDS ORDERED: ONDANSETRON 4 MG/2 ML VIAL IV PRN (03:48)
--- NOTE | 2024-12-04 03:48 | P.HP ---
Certification for Inpatient Patient admitted to: Observation With expected LOS: <2 Midnights Practitioner: I am a practitioner with admitting privileges, knowledge of patient current condition, hospital course, and medical plan of care. Services: Services provided to patient in accordance with Admission requirements found in Title 42 Section 412.3 of the Code of Federal Regulations Patient History Date of Service: 12/04/24 Reason for admission: SVT History of Present Illness: 74-year-old male with past medical history of hypertension, colon cancer, rectal cancer, history of intermittent SVT presents to the emergency department for palpitations that began prior to arrival. Patient states he was at home when his heart rate increased 145 he was able to curl up into a ball and the SVT stopped. Patient states he has been having intermittent episodes and was unable to control the second episode at home prompting him to come to the ER. Patient was assessed in the ER and was admitted for paroxysmal SVT Allergies No Known Allergies Allergy (Verified 11/21/14 14:01) Home Medications: dilTIAZem HCL [Diltiazem 24Hr ER] 120 mg PO DAILY #30 cap 11/30/24 - Past Medical/Surgical History Diabetic: No Past Medical History: Reviewed- Non-Contributory -: colon rectal cancer -: Kidney stones. -: SVT. -: Essential hypertension. Past Surgical History: Reviewed- Non-Contributory -: total colectomy with ileostomy placement -: tonsillectomy -: Kidney stone extraction - Family History Father -: Heart disease, Lung disease Mother -: Heart disease - Social History Smoking Status: Never smoker Alcohol use: Yes CD- Drugs: No Caffeine use: Yes Review of Systems 10-point ROS is otherwise unremarkable Physical Examination - Vital Signs Temperature: 98.2 F Blood Pressure: 126/70 Pulse: 78 Respirations: 18 Pulse Ox (%): 95 - Physical Exam General: Alert, In no apparent distress, Oriented x3 HEENT: Atraumatic, Normocephalic Neck: Supple, JVD not distended Respiratory: Clear to auscultation bilaterally, Normal air movement Cardiovascular: Regular rate/rhythm, Normal S1 S2 Capillary refill: <2 Seconds Gastrointestinal: Soft and benign, W/out hepatosplenomegaly Musculoskeletal: No clubbing, No swelling Integumentary: No rashes, No breakdown Neurological: Normal speech, Normal strength at 5/5 x4 extr, Normal reflexes 2+, Normal affect Lymphatics: No axilla or inguinal lymphadenopathy - Studies Laboratory Data (last 24 hrs) 12/04/24 12/04/24 01:38 01:03 WBC 4.30 Hgb 16.1 Hct 45.1 Plt Count 107 L Sodium 140 Potassium 3.5 BUN 27 H Creatinine 1.35 H Glucose 108 H Magnesium 2.0 Total Bilirubin 0.9 AST 22 ALT 39 Alkaline Phosphatase 47 Assessment and Plan - Plan Paroxysmal SVT Converted back to sinus rhythm now Metoprolol as needed Will get an echocardiogram Cardiology consult Monitor closely under telemetry Electrolytes monitor replace accordingly Hypertension Antihypertensives titrated Continue home medications and titrate as needed GI/DVT prophylaxis Advanced directive full code Discharge Plan: Home Plan to discharge in: 48 Hours - Advance Directives Does patient have a Living Will: No Does patient have a Durable POA for Healthcare: No - Code Status/Comfort Care Code Status: Full Code Time Spent Managing Pts Care (In Minutes): 48
[2024-12-04 04:30] VITALS: BMI 24.4
[2024-12-04] MEDS ORDERED: METOPROLOL TARTRATE 5 MG/5 ML INJ IV PRN (05:52)
[2024-12-04] MEDS: POTASSIUM CL SA 10 MEQ TAB PO ONE (06:22)
[2024-12-04 06:23] LABS: PT Prothrombin Time 11.9 SECONDS (10-13.0)
[2024-12-04] MEDS ORDERED: POTASSIUM CL SA 10 MEQ TAB PO ONE (06:34)
[2024-12-04] MEDS ORDERED: ENOXAPARIN 40 MG/0.4 ML SQ ONE (07:46)
[2024-12-04] MEDS: DILTIAZEM HCL 120 MG PO SCH (08:00)
[2024-12-04] MEDS ORDERED: DILTIAZEM HCL 120 MG PO SCH (09:00)
[2024-12-04] MEDS: ENOXAPARIN 40 MG/0.4 ML SQ SCH (09:00)
[2024-12-05 06:30] LABS: Albumin 3.6 g/dL (3.4-5.0); Albumin/Globulin Ratio 1.2 (1.1-1.8); Bilirubin Total 1.1 mg/dL (0.2-1.0); Globulin 3.1 g/dL (2.3-3.5); Protein, Total 6.7 g/dL (6.4-8.2)
[2024-12-05 06:40] LABS: Absolute Eosinophils 0.2 K/uL (0-0.5); Absolute Lymphocytes (CBC) 1.2 K/uL (0.7-4.9); Absolute Monocytes 0.4 K/uL (0.1-1.3); Basophils % 0.8 % (0-1.3); Eosinophils % 3.3 % (0-4.4); Hematocrit 42.9 % (39.6-49.0); Hemoglobin 15.2 g/dL (13.6-17.9); Lymphocytes % 24.1 % (15.3-44.8); MCH 32.2 pg (27.0-35.0); MCHC 35.5 g/dL (32.0-36.0); MCV 90.6 fL (80-100); MPV 9.4 fL (7.6-11.3); Neutrophils % 62.8 % (41.7-73.7); Nucleated Red Blood Cells % 0.1 % (0-0); Platelets 124 thou/uL (152-406); RBC Red Blood Cell Count 4.73 M/uL (4.33-5.43); Red Cell Distribution Width 14.1 % (12.1-15.2)
[2024-12-05 08:45] VITALS: BP 147/73; TEMP 97.6
--- NOTE | 2024-12-05 08:54 | P.DS ---
Discharge Date: 12/05/24 Disposition: ROUTINE DISCHARGE Discharge Condition: GOOD Reason for Admission: SVT Brief History of Present Illness: Patient is a 74-year-old gentleman who came to the hospital with SVT. However after he got into the ER his heart rate has been stable. We wanted to watch him for the next 24 hours. Clinically he has been doing well and he is requesting to go home. However I want to watch him and increase his Cardizem to 120 twice a day to see how he does with that regimen. He will follow-up with his cardiology this coming up Friday so I plan on not giving him a prescription when his cognos bi developer decide the best treatment for his SVT. Will watch him overnight to make sure he does well and if he does not plan to discharge in the morning. Hospital Course: Patient is a 74-year-old gentleman who came to the hospital with SVT. Patient was on Cardizem once a day. We have increased it to 120 mg twice a day but he is gone to see cardiology on Friday-Dr. Odom-some of plan is for patient to see his cognos bi developer on Friday so they can decide if they want continue the current regimen I am asking him to take or if they want to start him on a different medication. Patient will get an echocardiogram as an outpatient as well. Currently he is anxious to go home and since he has been doing well since he has been hospitalized clinically, he is stable for discharge. Continue the Cardizem 120 mg twice a day for today and then let his cognos bi developer decide on how he wants to continue with his treatment for his SVT. I have given the patient my number to contact me if he has any questions or concerns. Patient will follow-up with cardiology in the morning and then his PCP in 1 to 2 weeks. He can call me if he has any questions or concerns after he gets home. Vital Signs/Physical Exam: Temp Pulse Resp BP Pulse Ox 97.6 F 55 20 147/73 H 97 12/05/24 08:00 12/05/24 08:00 12/05/24 08:00 12/05/24 08:00 12/05/24 08:00 General: Alert, In no apparent distress, Oriented x3 Laboratory Data at Discharge: WBC 4.80 thou/uL (4.3-10.9) 12/05/24 05:04 Hgb 15.2 g/dL (13.6-17.9) 12/05/24 05:04 Hct 42.9 % (39.6-49.0) 12/05/24 05:04 Plt Count 124 thou/uL (152-406) L 12/05/24 05:04 PT 11.9 SECONDS (10-13.0) 12/04/24 01:03 INR 1.00 12/04/24 01:03 Sodium 139 mEq/L (136-145) 12/05/24 05:04 Potassium 4.0 mEq/L (3.5-5.1) D 12/05/24 05:04 BUN 23 mg/dL (7-18) H 12/05/24 05:04 Creatinine 1.26 mg/dL (0.70-1.30) 12/05/24 05:04 Glucose 97 mg/dL (74-106) 12/05/24 05:04 Magnesium 2.0 mg/dL (1.6-2.4) 12/04/24 01:38 Total Bilirubin 1.1 mg/dL (0.2-1.0) H 12/05/24 05:04 AST 18 U/L (15-37) 12/05/24 05:04 ALT 35 U/L (16-61) 12/05/24 05:04 Alkaline Phosphatase 43 U/L (45-117) L 12/05/24 05:04 Home Medications: dilTIAZem HCL [Diltiazem 24Hr ER] 120 mg PO DAILY #30 cap 11/30/24 dilTIAZem HCL [Diltiazem 24Hr ER] 120 mg PO BID #60 tab 12/05/24 New Medications: dilTIAZem HCL [Diltiazem 24Hr ER] 120 mg PO BID #60 tab Physician Discharge Instructions: -DC IV and DC home -Follow-up with PCP in 1 to 2 weeks -Follow-up with Cardiology in the morning -Please call Dr. Mendes at [phone] if any questions regarding hospital stay -Please call nursing station at [phone] if any nursing or medication questions -Return to the emergency room if symptoms worsen Diet: AHA Activity: Fall precautions Followup: Salinas Jade MD [Primary Care Provider] - Time spent managing pt's care (in minutes): 35
[2024-12-05 12:30] VITALS: O2SAT 96
--- NOTE | 2024-12-14 12:58 | EKG ---
Test Date: 2024-12-04 Test Time: 00:40:15 Silk Opener: MANUEL MEASUREMENT RESULTS: Intervals: Rate: 162 IN: QRSD: 114 QT: 290 QTc: 476 Bruner: P: IN: QRS: -4 T: 34 INTERPRETIVE STATEMENTS: Supraventricular tachycardia Incomplete right bundle branch block Nonspecific ST abnormality Abnormal ECG Compared to ECG 11/29/2024 20:25:25 Incomplete right bundle-branch block now present ST (T wave) deviation now present Sinus rhythm no longer present Electronically Signed On 12-14-24 12:36:42 CDT by Zachary Yoo
--- NOTE | 2024-12-14 12:58 | EKG ---
Test Date: 2024-12-04 Test Time: 02:10:36 Head Sugar Reprocess Operator: MANUEL MEASUREMENT RESULTS: Intervals: Rate: 67 IN: 156 QRSD: 106 QT: 392 QTc: 414 [place]: P: 50 IN: 156 QRS: -2 T: -20 INTERPRETIVE STATEMENTS: Sinus rhythm with premature atrial complexes Moderate voltage criteria for LVH, may be normal variant T wave abnormality, consider inferior ischemia Abnormal ECG Compared to ECG 12/04/2024 00:40:15 Atrial premature complex(es) now present Left ventricular hypertrophy now present T-wave abnormality now present Possible ischemia now present Supraventricular tachycardia no longer present Incomplete right bundle-branch block no longer present ST (T wave) deviation no longer present Electronically Signed On 12-14-24 12:36:39 CDT by Zachary Yoo
== END 2024-12-05 10:50 | disposition home or self-care (01) | DRG 310 ==
LOC: ER 00:25 → ERHOLD 03:48 → 2ND 17:17
PROVIDERS: ADMIT Family Medicine; ATTEND Hospitalist
DX: I47.10 Supraventricular tachycardia, unspecified (principal); I10 Essential (primary) hypertension; Z93.2 Ileostomy status; Z85.038 Personal history of other malignant neoplasm of large intestine; Z85.048 Personal history of other malignant neoplasm of rectum, rectosigmoid junction, and anus
CPT/HCPCS: 36415; 71045; 80048; 80053; 80076; 83735; 83880; 84132; 84484; 85025; 85610; 93005; 94760; 99285; J1650

== ENCOUNTER 2025-03-03 11:48 | Emergency (ER) | payer OTHER ==
[2025-03-03 12:32] LABS: Absolute Lymphocytes (CBC) 1.1 K/uL (0.7-4.9); Hematocrit 42.5 % (39.6-49.0); Hemoglobin 15.2 g/dL (13.6-17.9); MCH 32.6 pg (27.0-35.0); MCHC 35.7 g/dL (32.0-36.0); MCV 91.2 fL (80-100); MPV 9.1 fL (7.6-11.3); Nucleated RBC Absolute Count 0.0 (0-0); Nucleated Red Blood Cells % 0.1 % (0-0); RBC Red Blood Cell Count 4.67 M/uL (4.33-5.43); White Blood Count 6.80 thou/uL (4.3-10.9)
[2025-03-03 12:49] LABS: ALT/SGPT 20.0 U/L (16-61); AST/SGOT 12.0 U/L (15-37); Albumin 3.9 g/dL (3.4-5.0); Albumin/Globulin Ratio 1.1 (1.1-1.8); Alkaline Phosphatase 48.0 U/L (45-117); Anion Gap 10.2 mEq/L (5.0-15.0); BUN Blood Urea Nitrogen 27.0 mg/dL (7-18); Globulin 3.4 g/dL (2.3-3.5); Glucose Level 112.0 mg/dL (74-106); Potassium 4.2 mEq/L (3.5-5.1)
[2025-03-03] MEDS ORDERED: KETOROLAC 30 MG/ML INJ ONE (13:12)
[2025-03-03] MEDS ORDERED: ONDANSETRON 4 MG/2 ML VIAL ONE (13:12)
--- NOTE | 2025-03-03 13:14 | RAD REPORT ---
EXAMINATION: CT ABDOMEN AND PELVIS WITHOUT CONTRAST CLINICAL INDICATION: right flank pain TECHNIQUE: CT abdomen and pelvis was performed, without IV contrast, as per department protocol. Axia l, sagittal and coronal reconstructions were obtained. One or more of the following dose reduction techniques were used: Automated exposure control, adjustment of the mA and kV according to the patien t size, and iterative reconstruction. Unless otherwise specified, incidental findings do not require dedicated imaging follow-up. COMPARISON: 09/04/2017 FINDINGS: The lack of intravenous contrast limits the sensitivity of this exam for evaluation of solid visceral organs, vascular structures, and retroperitoneum. LOWER CHEST: Mild linear atelectasis in both lung bases. LIVER:28 mm benign cyst left kidney. Additional smaller cyst also present in the left lobe of the keenan er. Grossly unremarkable gallbladder. SPLEEN: Normal size. No focal lesion. PANCREAS: No mass, ductal dilation, or karli-pancreatic fluid. ADRENALS: Normal; no mass. KIDNEYS AND URETERS: Punctate calculi seen calyces of the left kidney. No left-sided hydronephrosis. Small calyceal stones also present right kidney. Moderate right hydronephrosis with 5 mm stone at the right UVJ and 4 mm calculus slightly more proximal right ureter. URINARY BLADDER: Normal contour. GASTROINTESTINAL TRACT: No evidence of bowel obstruction, significant free fluid, free air or abscess . Left lower quadrant colostomy. Postsurgical changes in the region of the rectum. APPENDIX: Absent LYMPH NODES: No lymphadenopathy. MUSCULOSKELETAL: Moderate lower lumbar degenerative changes. ADDITIONAL FINDINGS: Mild presacral fat stranding. Bilateral fat-containing inguinal hernias, slightl y greater on the left. IMPRESSION: 5 mm stone right UVJ with a smaller 4 mm calculus slightly more proximal right ureter. Moderate right hydronephrosis and hydroureter is present. Punctate calyceal calculi bilaterally.
--- NOTE | 2025-03-03 13:25 | ER ---
Nurse's Notes [facility] Name: Bryce Alegria Age: 74 yrs Sex: Male : 1950 Arrival Date: 03/03/2025 Time: 11:48 Bed 5 Private MD: Diagnosis: Kidney stone;Chronic kidney disease, unspecified;Essential (primary) hypertension Presentation: 03/03 11:57 Chief complaint: Patient states: "I helped my family move on Friday and I started aa5 hurting on Friday". Pt c/o pain to right flank. Coronavirus screen: At this time, the client does not indicate any symptoms associated with coronavirus-19. Ebola Screen: Patient denies travel to an Ebola-affected area in the 21 days before illness onset. Initial Sepsis Screen: Does the patient meet any 2 criteria? No. Patient's initial sepsis screen is negative. Does the patient have a suspected source of infection? No. Patient's initial sepsis screen is negative. Risk Assessment: Do you want to hurt yourself or someone else? Patient reports no desire to harm self or others. Onset of symptoms was February 28, 2025. 11:57 Method Of Arrival: Ambulatory aa5 11:57 Acuity: DOUGIE 3 aa5 Triage Assessment: 12:00 General: Appears in no apparent distress. comfortable, Behavior is calm, cooperative, bp appropriate for age. Pain: Denies pain. EENT: No deficits noted. Neuro: No deficits noted. Cardiovascular: No deficits noted. Respiratory: No deficits noted. GI: No signs and/or symptoms were reported involving the gastrointestinal system. : Reports pain in right flank(s). Derm: No deficits noted. Musculoskeletal: No deficits noted. Historical: - Allergies: 11:53 NKDA; aa5 - PMHx: 11:53 colon cancer; Hypertensive disorder; rectal cancer; SVT; aa5 11:58 kidney stones; aa5 - PSHx: 11:53 Colectomy; ileostomy bag; aa5 - Immunization history:: Adult Immunizations unknown. - Infectious Disease History:: Denies. - Social history:: Smoking status: Patient denies any tobacco usage or history of. Screenin:33 [facility] ED Fall Risk Assessment (Adult) History of falling in the last 3 months, ar8 including since admission No falls in past 3 months (0 pts) Confusion or Disorientation No (0 pts) Intoxicated or Sedated No (0 pts) Impaired Gait No (0 pts) Mobility Assist Device Used No (0 pt) Altered Elimination No (0 pt) Score/Fall Risk Level 0 - 2 = Low Risk. Abuse screen: Denies threats or abuse. Nutritional screening: No deficits noted. Tuberculosis screening: No symptoms or risk factors identified. Assessment: 12:33 General: Appears in no apparent distress. Behavior is calm, cooperative. Pain: ar8 Complains of pain in right mid back and right low back. Neuro: No deficits noted. Level of Consciousness is awake, alert, obeys commands, Oriented to person, place, time, situation. Cardiovascular: No deficits noted. Respiratory: No deficits noted. Respiratory: Airway is patent Respiratory effort is even, unlabored, Respiratory pattern is regular, symmetrical. Musculoskeletal: Reports pain in right mid back and right low back. Vital Signs: 11:57 BP 152 / 75; Pulse 52; Resp 19 S; Temp 98.4(O); Pulse Ox 100% on R/A; Weight 81.65 kg aa5 (R); Height 5 ft. 11 in. (R); 13:43 BP 147 / 69; Pulse 55; Resp 18; Pulse Ox 100% ; bp 11:57 Body Mass Index 25.11 (81.65 kg, 180.34 cm) aa5 ED Course: 11:53 Patient arrived in ED. cj3 11:53 Arm band placed on. aa5 11:58 Triage completed. aa5 11:58 Villa Sullivan DO is Attending Physician. ms3 12:08 Tanvir Ledesma, RN is Primary Nurse. bp 12:25 CBC with Diff Sent. ar8 12:25 CMP Sent. ar8 12:25 No provider procedures requiring assistance completed. Inserted saline lock: 22 gauge ar8 in right antecubital area, using aseptic technique. Blood collected. Flushed with 10 mL NS. 12:33 Bed in low position. Call light in reach. Side rails up X 1. Provided Education on: ar8 plan of care. 12:34 CT Abd/Pelvis - Without Contrast In Process Unspecified. EDMS 13:43 IV discontinued, intact, bleeding controlled, No redness/swelling at site. Pressure bp dressing applied. Administered Medications: 13:25 Drug: Ondansetron IVP 4 mg IVP once; over 2 minutes Route: IVP; Site: right antecubital;ar8 13:44 Follow up: Response: No adverse reaction bp 13:27 Drug: Ketorolac IVP 10 mg 10 mg IVP once Route: IVP; Site: right antecubital; ar8 13:44 Follow up: Response: No adverse reaction bp Medication: 12:33 VIS not applicable for this client. ar8 Outcome: 13:24 Discharge ordered by . ms3 13:43 Discharged to home ambulatory, with family, bp 13:43 Condition: stable 13:43 Discharge instructions given to patient, family, Instructed on discharge instructions, follow up and referral plans. medication usage, Demonstrated understanding of instructions, follow-up care, medications, Prescriptions given X 2, 13:44 Patient left the ED. bp Signatures: Dispatcher [employer] EDMS Yanique Zendejas, RN RN aa5 Tanvir Ledesma RN RN bp Villa Sullivan, DO ms3 Christiana William cj3 Allen Crenshaw, RN RN ar8 Corrections: (The following items were deleted from the chart) 12:00 11:57 Pulse 48bpm; Resp 19bpm; Spontaneous; Pulse Ox 100% RA; Temp 98.4F Oral; 81.65 kg aa5 Reported; Height 5 ft. 11 in. Reported; BMI: 25.1; aa5
--- NOTE | 2025-03-03 13:25 | EDPHYS ---
Physician Documentation [facility] Name: Bryce Alegria Age: 74 yrs Sex: Male : 1950 Arrival Date: 03/03/2025 Time: 11:48 Bed 5 Private MD: ED Physician Villa Sullivan HPI: 03/03 13:24 This 74 yrs old Male presents to ER via Ambulatory with complaints of Flank Pain - RT, ms3 Back Pain - LOWER. 13:24 74-year-old male with past medical history of colon cancer, hypertension, rectal ms3 cancer, SVT, kidney stones presents to the emergency department for right flank pain that began on Friday after helping someone move. Patient states his pain returned this morning. Patient rates his pain a 6/10 and states the pain was an 8/10 at maximum intensity. Patient endorses nausea and denies vomiting, fevers, chills. Historical: - Allergies: 11:53 NKDA; aa5 - PMHx: 11:53 colon cancer; Hypertensive disorder; rectal cancer; SVT; aa5 11:58 kidney stones; aa5 - PSHx: 11:53 Colectomy; ileostomy bag; aa5 - Immunization history:: Adult Immunizations unknown. - Infectious Disease History:: Denies. - Social history:: Smoking status: Patient denies any tobacco usage or history of. ROS: 13:24 Constitutional: Negative for fever, and chills. Cardiovascular: Negative for chest ms3 pain, and palpitations. Respiratory: Negative for shortness of breath, cough, wheezing, and pleuritic chest pain, Abdomen/GI: Negative for abdominal pain, nausea, vomiting, diarrhea, and constipation, MS/Extremity: Negative for injury and deformity, Skin: Negative for injury, rash, and discoloration, Exam: 13:24 Constitutional: This is a well developed, well nourished patient who is awake, alert, ms3 and in no acute distress. Cardiovascular: Regular rate and rhythm with a normal S1 and S2. No gallops, murmurs, or rubs. Normal PMI, no JVD. No pulse deficits. Respiratory: Lungs have equal breath sounds bilaterally, clear to auscultation and percussion. No rales, rhonchi or wheezes noted. No increased work of breathing, no retractions or nasal flaring. Abdomen/GI: Soft, non-tender, with normal bowel sounds. No distension or tympany. No guarding or rebound. No evidence of tenderness throughout. Skin: Warm, dry with normal turgor. Normal color with no rashes, no lesions, and no evidence of cellulitis. MS/ Extremity: Pulses equal, no cyanosis. Neurovascular intact. Full, normal range of motion. Vital Signs: 11:57 BP 152 / 75; Pulse 52; Resp 19 S; Temp 98.4(O); Pulse Ox 100% on R/A; Weight 81.65 kg aa5 (R); Height 5 ft. 11 in. (R); 13:43 BP 147 / 69; Pulse 55; Resp 18; Pulse Ox 100% ; bp 11:57 Body Mass Index 25.11 (81.65 kg, 180.34 cm) aa5 MDM: 12:17 Medical Screening Exam initiated ms3 13:24 Differential diagnosis: nephrolithiasis, diverticulitis, Muscle spasm. Data reviewed: ms3 vital signs, nurses notes, lab test result(s), radiologic studies, and as a result, I will discharge patient. I considered the following discharge prescriptions or medication management in the emergency department Medications were administered in the Emergency Department. See MAR. Counseling: I had a detailed discussion with the patient and/or guardian regarding the historical points, exam findings, and any diagnostic results supporting the discharge/admit diagnosis, lab results, radiology results, the need for outpatient follow up, to return to the emergency department if symptoms worsen or persist or if there are any questions or concerns that arise at home. Special discussion: I discussed with the patient/guardian in detail that at this point there is no indication for admission to the hospital. It is understood, however, that if the symptoms persist or worsen the patient needs to return immediately for re-evaluation. ED course: Discussed moderate hydronephrosis with kidney stones, elevated creatinine with patient and his . Patient to follow-up with his urologist in 2 to 3 days. Patient and his understand and agree with plan. All questions were answered. Return precautions discussed include worsening symptoms, or any other concerns.. 03/03 12:18 Order name: CBC with Diff; Complete Time: 12:46 ms3 03/03 12:18 Order name: CMP; Complete Time: 13:18 ms3 03/03 12:18 Order name: CT Abd/Pelvis - Without Contrast; Complete Time: 13:18 ms3 03/03 12:18 Order name: IV Saline Lock; Complete Time: 12:25 ms3 03/03 12:18 Order name: Labs collected and sent; Complete Time: 12:25 ms3 Administered Medications: 13:25 Drug: Ondansetron IVP 4 mg IVP once; over 2 minutes Route: IVP; Site: right antecubital;ar8 13:44 Follow up: Response: No adverse reaction bp 13:27 Drug: Ketorolac IVP 10 mg 10 mg IVP once Route: IVP; Site: right antecubital; ar8 13:44 Follow up: Response: No adverse reaction bp Disposition Summary: 03/03/25 13:24 Discharge Ordered Notes: Location: Home ms3 Condition: Stable ms3 Diagnosis - Kidney stone ms3 - Chronic kidney disease, unspecified ms3 - Essential (primary) hypertension ms3 Followup: ms3 - With: Private Physician - When: 2 - 3 days - Reason: Recheck today's complaints Discharge Instructions: - Discharge Summary Sheet ms3 - Hypertension, Adult ms3 - Chronic Kidney Disease, Adult ms3 - DASH Eating Plan ms3 Forms: - Medication Reconciliation Form ms3 - Antibiotic Education ms3 - Prescription Opioid Use ms3 - Patient Portal Instructions ms3 - Leadership Thank You Letter ms3 Prescriptions: - ondansetron 4 mg Oral Tablet,disintegrating - take 1 tablet ORAL route every 6 hours as needed for nausea and vomiting; 15 ms3 tablet; Refills: 0, Product Selection Permitted - Tylenol-Codeine #3 300mg-30mg Oral tablet - take 1 tablet ORAL route every 4 hours As needed; 18 tablet; Refills: 0, ms3 Product Selection Permitted Signatures: Dispatcher [employer] Yanique Gil RN RN aa5 Villa Sullivan DO DO ms3 Allen Crenshaw RN RN ar8 Tanvir Ledesma RN bp
[2025-03-03 15:20] VITALS: TEMP 98.4; O2SAT 100
[2025-03-03 15:22] VITALS: BP 147/69
== END 2025-03-03 13:44 | disposition home or self-care (01) ==
LOC: ER 11:48
DX: N20.0 Calculus of kidney (principal); I12.9 Hypertensive chronic kidney disease with stage 1 through stage 4 chronic kidney disease, or unspecified chronic kidney disease; N18.9 Chronic kidney disease, unspecified; Z87.442 Personal history of urinary calculi
CPT/HCPCS: 85025; 36415; 80053; 74176; 96375; 96374; 99284; J2405